=== PATIENT | female | born 1980 | race Caucasian/White ===

== ENCOUNTER 2016-07-09 19:31 | Emergency (ER) | payer MEDICARE, MEDICAID ==
[~2016-07-09] VITALS: Ht 167.6 cm; Wt 136.4 kg
[~2016-07-09 19:31] MED LIST: ABILIFY 10MG TA10 MG PO; AFRIN NASAL SPR15 ML NS; ALBUTEROL SULFAT3 M3 IH; AMITRIPTYLINE H25 M1 PO; ATIVAN 1MG T1 MG/TAB PO; ATIVAN PO; AURALGAN EAR DR15 ML OT; CEPHALEXIN500 M1 PO; CIPRO 500MG TA500 MG PO; CIPRO HC OTIC S10 ML OT; CIPRODEX OT; CLONAZEPAM PO; COZAAR 25MG25 MG/TAB; COZAAR 25MG25 MG/TAB PO; CYMBALTA PO; DEPAKOTE ER 25250 MG PO; DEPAKOTE ER 50500 MG PO; DEPAKOTE500 M1 PO; DEPAKOTE500 MG PO; DESYREL 50MG50 MG PO; DESYREL DIVIDO150 M1 PO; DICLOXACILLIN500 MG PO; DITROPAN 5MG TAB5 MG PO; FLUOXETINE10 M1 PO; GEODON 20 MG20 MG; GEODON 40MG40 MG PO; GEODON PO; GEODON80 MG PO; HYDROXYZINE HCL25 MG PO; KLONOPIN1 MG PO; LATUDA40 MG PO; LATUDA60 MG PO; LEVOTHYROXINE0.15 M1 PO; LEVOXYL0.025 MG PO; LORTAB 5/500 501 TAB PO; MELATONIN1 MG PO; MELATONIN5 M1 PO; MELATONIN5 M1 SL; METAMUCIL1 PDR PO; MOTRIN 800800 MG/TAB PO; MULTIPLE VITAMI1 CAP PO; MULTIPLE VITAMI1 TAB PO; NAPROSYN500 MG PO; NAPROXEN EC500 MG PO; NATURE'S BLEN1000 IU PO; NORCO 325 MG-51 TAB PO; NORCO 325 MG-7.1 TAB PO; OMEPRAZOLE40 MG PO; OXYBUTYNIN5 MG PO; PEPCID 20MG TAB20 MG PO; PERCOCET 325 MG1 TA2 PO; PERIACTIN 4MG TA4 MG PO; PHENERGAN 25 TA25 MG PO; PHENERGAN25 MG RC; PRIL40 PO; PRILOSEC 20MG20 MG PO; PRILOSEC20 MG PO; PRINIVIL10 MG PO; PRISTIQ100 MG PO; PROVENTIL0.09 MG/A1 IH; PROZAC 10MG10 MG PO; PROZAC 20MG20 MG PO; RESTORIL 77.5 MG/CAP PEG; RESTORIL 77.5 MG/CAP PO; SERAQUIL; SEROQUEL XR150 MG PO; SEROQUEL XR200 MG PO; SEROQUEL XR300 MG PO; SEROQUEL XR400 M1 PO; SEROQUEL XR400 MG PO; SYNTHROID 0.0.025 MG PO; SYNTHROID0.05 MG/TA PO; SYNTHROID0.125 MG/T PO; SYNTHROID0.2 MG/TAB PO; TEGRETOL PO; TEGRETOL-XR400 MG PO; TEGRETOL200 MG PO; TENORMIN 2525 MG/TAB PO; TOPAMAX 25MG25 M1 PO; TRAZADONE HYDR100 MG PO; TRAZODONE150 MG PO; VALTREX1 GM PO; VITAMIN D1000 IU PO; VITAMIN D31000 IU PO; WELLBUTRIN XL300 M1; WELLBUTRIN XL300 M1 PO; XANAX 0.5MG0.5 MG PO; XANAX 1MG1 MG PO; ZIPRASIDONE PO; ZITHROMAX 250M250 MG PO; ZITHROMAX Z PA250 MG PO; ZOFRAN 4MG T4 MG/TAB PO; ZYPREXA ZYDIS10 MG PO; ZYPREXA ZYDIS5 MG PO
[2016-07-09 19:55] VITALS: BP 157/85; TEMP 98.6
[2016-07-09] MEDS ORDERED: ATARAX50 MG PO (20:00)
[2016-07-09 21:16] LABS: AMPHETAMINE URINE NEGATIVE; BARBITURATES URINE NEGATIVE; BENZODIAZEPINES URINE NEGATIVE; BUPRENORPHINE URINE NEGATIVE; METHADONE URINE NEGATIVE; OPIATES URINE NEGATIVE; OXYCODONE URINE NEGATIVE; PHENCYCLIDINE URINE NEGATIVE; PROPOXYPHENE URINE NEGATIVE; THC CANNABINOIDS URINE NEGATIVE
[2016-07-09 21:18] LABS: BASO # 0.1 (0.0-0.2); BASO % 0.7 % (0.0-2.0); EOS # 0.2 (0.0-0.7); GRAN # 6.1 (1.4-6.5); GRAN % 57.5 % (42.2-75.2); HEMATOCRIT 44.8 % (37.0-47.0); HEMOGLOBIN 15.1 g/dl (12.5-16.0); LYMPH # 3.5 (1.2-3.4); LYMPH % 32.9 % (20.0-51.0); MEAN CELL VOLUME 89 fl (80.0-100.0); MEAN CORPUSCULAR HEMOGLOBIN 30 pg (27.0-31.0); MEAN CORPUSCULAR HGB CONC 34 g/dl (33.0-37.0); MEAN PLATELET VOLUME 10.6 fl (7.4-10.4); MONO # 0.7 (0.1-0.6); MONO % 6.2 % (1.7-9.3); PLATELET COUNT 284 K/mm3 (130-400); RED BLOOD COUNT 5.03 M/mm3 (4.10-5.30); REDCELL DISTRIBUTION WIDTH-CV 13.3 % (11.5-14.5); WHITE BLOOD COUNT 10.7 K/mm3 (4.8-10.8)
[2016-07-09 21:26] LABS: ADJUSTED CALCIUM 9.1 mg/dL (8.4-10.2); ALANINE AMINOTRANSFERASE 79 U/L (9-52); ALBUMIN 4.5 gm/dL (3.5-5.0); ALKALINE PHOSPHATASE 141 U/L (50-136); ANION GAP 14 mmol/L (7-16); BILIRUBIN,TOTAL 0.7 mg/dL (0.0-1.0); BLOOD UREA NITROGEN 5 mg/dL (7-17); CALCIUM 9.5 mg/dL (8.4-10.2); CARBON DIOXIDE 25 mmol/L (22-30); CHLORIDE 101 mmol/L (98-107); GLUCOSE 90 mg/dL (74-106); POTASSIUM 3.6 mmol/L (3.4-5.0); SODIUM 140 mmol/L (137-145); TOTAL PROTEIN 8.5 gm/dL (6.4-8.2)
[2016-07-09 21:27] LABS: ACETAMINOPHEN < 10 ug/mL (10-30); SALICYLATE < 1.0 mg/dL
[2016-07-09 23:09] VITALS: PULSE 94
== END 2016-07-09 23:09 | disposition home or self-care (01) ==
LOC: COL.ER 19:31
PROVIDERS: Emergency Medicine
DX: R45.851 Suicidal ideations (principal); F31.81 Bipolar II disorder; I10 Essential (primary) hypertension

== ENCOUNTER 2016-07-12 19:47 | Emergency (ER) | payer MEDICARE, MEDICAID ==
[~2016-07-12] VITALS: Ht 170.2 cm; Wt 136.4 kg
[~2016-07-12 19:47] MED LIST changes: +ATARAX50 MG PO
[2016-07-12 19:50] VITALS: BP 162/91; TEMP 98.7
[2016-07-12 20:55] LABS: BASO # 0.1 (0.0-0.2); BASO % 0.6 % (0.0-2.0); EOS # 0.2 (0.0-0.7); EOS % 2.4 % (0-4.0); GRAN # 4.9 (1.4-6.5); GRAN % 58.1 % (42.2-75.2); HEMATOCRIT 41.5 % (37.0-47.0); LYMPH # 2.8 (1.2-3.4); LYMPH % 32.5 % (20.0-51.0); MEAN CELL VOLUME 89 fl (80.0-100.0); MEAN CORPUSCULAR HEMOGLOBIN 30 pg (27.0-31.0); MEAN CORPUSCULAR HGB CONC 34 g/dl (33.0-37.0); MEAN PLATELET VOLUME 10.5 fl (7.4-10.4); MONO # 0.5 (0.1-0.6); MONO % 5.8 % (1.7-9.3); PLATELET COUNT 251 K/mm3 (130-400); RED BLOOD COUNT 4.65 M/mm3 (4.10-5.30); REDCELL DISTRIBUTION WIDTH-CV 13.1 % (11.5-14.5); WHITE BLOOD COUNT 8.5 K/mm3 (4.8-10.8)
[2016-07-12 21:10] LABS: AMPHETAMINE URINE NEGATIVE; BARBITURATES URINE NEGATIVE; BENZODIAZEPINES URINE NEGATIVE; BUPRENORPHINE URINE NEGATIVE; METHADONE URINE NEGATIVE; OPIATES URINE NEGATIVE; OXYCODONE URINE NEGATIVE; PHENCYCLIDINE URINE NEGATIVE; PROPOXYPHENE URINE NEGATIVE; THC CANNABINOIDS URINE NEGATIVE
[2016-07-12 21:19] LABS: ALANINE AMINOTRANSFERASE 72 U/L (9-52); ALBUMIN 4.1 gm/dL (3.5-5.0); ALKALINE PHOSPHATASE 137 U/L (50-136); ANION GAP 11 mmol/L (7-16); BILIRUBIN,TOTAL 0.5 mg/dL (0.0-1.0); BLOOD UREA NITROGEN 7 mg/dL (7-17); CALCIUM 9.1 mg/dL (8.4-10.2); CARBON DIOXIDE 26 mmol/L (22-30); CHLORIDE 102 mmol/L (98-107); CREATININE, serum 0.98 mg/dL (0.52-1.25); GLUCOSE 134 mg/dL (74-106); POTASSIUM 3.5 mmol/L (3.4-5.0); SODIUM 139 mmol/L (137-145); TOTAL PROTEIN 7.7 gm/dL (6.4-8.2)
[2016-07-12 21:29] LABS: ACETAMINOPHEN < 10 ug/mL (10-30); SALICYLATE < 1.0 mg/dL
[2016-07-12 23:35] VITALS: PULSE 91
== END 2016-07-12 23:35 | disposition home or self-care (01) ==
LOC: COL.ER 19:47
PROVIDERS: Physician Assistant
DX: F32.9 Major depressive disorder, single episode, unspecified (principal); R45.851 Suicidal ideations; F43.10 Post-traumatic stress disorder, unspecified; F60.3 Borderline personality disorder

== ENCOUNTER 2016-08-23 20:14 | Emergency (ER) | payer MEDICARE, MEDICAID ==
[~2016-08-23] VITALS: Ht 167.6 cm; Wt 140.9 kg
[2016-08-23 20:18] VITALS: BP 155/62; TEMP 100.5
[2016-08-23 21:13] LABS: HEMATOCRIT 42.9 % (37.0-47.0); HEMOGLOBIN 14.4 g/dl (12.5-16.0); MEAN CELL VOLUME 88 fl (80.0-100.0); MEAN CORPUSCULAR HEMOGLOBIN 30 pg (27.0-31.0); MEAN CORPUSCULAR HGB CONC 34 g/dl (33.0-37.0); MEAN PLATELET VOLUME 10.7 fl (7.4-10.4); PLATELET COUNT 252 K/mm3 (130-400); RED BLOOD COUNT 4.87 M/mm3 (4.10-5.30); REDCELL DISTRIBUTION WIDTH-CV 14.3 % (11.5-14.5); WHITE BLOOD COUNT 9.8 K/mm3 (4.8-10.8)
[2016-08-23 21:21] LABS: ADD PATHOLOGY DIFF REVIEW NO
[2016-08-23 21:29] LABS: ADJUSTED CALCIUM 9.3 mg/dL (8.4-10.2); ALANINE AMINOTRANSFERASE 53 U/L (9-52); ALBUMIN 4.3 gm/dL (3.5-5.0); ALKALINE PHOSPHATASE 110 U/L (50-136); ANION GAP 12 mmol/L (7-16); BILIRUBIN,TOTAL 0.9 mg/dL (0.0-1.0); BLOOD UREA NITROGEN 8 mg/dL (7-17); CALCIUM 9.5 mg/dL (8.4-10.2); CARBON DIOXIDE 27 mmol/L (22-30); CHLORIDE 102 mmol/L (98-107); GLUCOSE 128 mg/dL (74-106); POTASSIUM 3.3 mmol/L (3.4-5.0); SODIUM 141 mmol/L (137-145); TOTAL PROTEIN 8.3 gm/dL (6.4-8.2)
[2016-08-23 21:33] LABS: AMPHETAMINE URINE NEGATIVE; BARBITURATES URINE NEGATIVE; BENZODIAZEPINES URINE NEGATIVE; BUPRENORPHINE URINE NEGATIVE; METHADONE URINE NEGATIVE; OPIATES URINE NEGATIVE; OXYCODONE URINE NEGATIVE; PHENCYCLIDINE URINE NEGATIVE; PROPOXYPHENE URINE NEGATIVE; THC CANNABINOIDS URINE NEGATIVE
[2016-08-23 21:47] LABS: ACETAMINOPHEN < 10 ug/mL (10-30); SALICYLATE < 1.0 mg/dL
[2016-08-23 22:07] LABS: BAND 5 % (0-10); EOSINOPHIL 3 % (0-4); NEUTROPHILS 58 % (42.0-75.2); PLATELET ESTIMATE NORMAL (NORMAL); TOTAL CELLS COUNTED 100
[2016-08-24 05:01] VITALS: PULSE 112
== END 2016-08-24 05:04 ==
LOC: COL.ER 20:14
PROVIDERS: Physician Assistant
DX: F31.13 Bipolar disorder, current episode manic without psychotic features, severe (principal); R45.851 Suicidal ideations; M25.562 Pain in left knee; I10 Essential (primary) hypertension; E03.9 Hypothyroidism, unspecified; F17.210 Nicotine dependence, cigarettes, uncomplicated; Z91.5 Personal history of self-harm

== ENCOUNTER 2016-09-11 12:54 | Emergency (ER) | payer MEDICARE, MEDICAID ==
[~2016-09-11] VITALS: Ht 167.6 cm; Wt 140.0 kg
[2016-09-11 12:56] VITALS: BP 171/87; PULSE 103; TEMP 98.3
[2016-09-11] MEDS ORDERED: NORCO 325 MG-51 TAB PO (15:25)
== END 2016-09-11 15:34 | disposition home or self-care (01) ==
LOC: COL.ER 12:54
DX: S86.212A Strain of muscle(s) and tendon(s) of anterior muscle group at lower leg level, left leg, initial encounter (principal); X50.1XXA Overexertion from prolonged static or awkward postures, initial encounter; Y92.003 Bedroom of unspecified non-institutional (private) residence as the place of occurrence of the external cause; I10 Essential (primary) hypertension; F17.210 Nicotine dependence, cigarettes, uncomplicated
CPT/HCPCS: L1830

== ENCOUNTER 2016-12-31 12:06 | Emergency (ER) | payer MEDICARE, MEDICAID ==
[~2016-12-31] VITALS: Ht 170.2 cm; Wt 134.1 kg
[2016-12-31 12:09] VITALS: TEMP 98.5
[2016-12-31] MEDS ORDERED: SEROQUEL 1100 MG/TAB PO (12:15)
[2016-12-31] MEDS ORDERED: ALEVE 220MG220 MG PO (12:16)
[2016-12-31] MEDS ORDERED: DESYREL 100MG100 MG PO (12:16)
[2016-12-31] MEDS ORDERED: HALDOL 5MG T5 MG/TAB PO (12:16)
[2016-12-31] MEDS ORDERED: MULTI VITAMINS1 TAB PO (12:17)
[2016-12-31] MEDS ORDERED: LASIX 20MG TABL20 MG PO (12:49)
[2016-12-31 13:16] LABS: BASO # 0.1 (0.0-0.2); BASO % 0.9 % (0.0-2.0); EOS # 0.2 (0.0-0.7); EOS % 2.4 % (0-4.0); GRAN % 56.6 % (42.2-75.2); HEMATOCRIT 40.7 % (37.0-47.0); HEMOGLOBIN 13.4 g/dl (12.5-16.0); LYMPH # 2.3 (1.2-3.4); LYMPH % 32.7 % (20.0-51.0); MEAN CELL VOLUME 87 fl (80.0-100.0); MEAN CORPUSCULAR HEMOGLOBIN 29 pg (27.0-31.0); MEAN CORPUSCULAR HGB CONC 33 g/dl (33.0-37.0); MEAN PLATELET VOLUME 10.5 fl (7.4-10.4); MONO # 0.5 (0.1-0.6); PLATELET COUNT 232 K/mm3 (130-400); REDCELL DISTRIBUTION WIDTH-CV 14.4 % (11.5-14.5)
[2016-12-31 13:30] LABS: ADJUSTED CALCIUM 9.3 mg/dL (8.4-10.2); ALANINE AMINOTRANSFERASE 41 U/L (9-52); ALKALINE PHOSPHATASE 119 U/L (50-136); ANION GAP 11 mmol/L (7-16); BILIRUBIN,TOTAL 0.4 mg/dL (0.0-1.0); BLOOD UREA NITROGEN 8 mg/dL (7-17); CALCIUM 9.3 mg/dL (8.4-10.2); CARBON DIOXIDE 24 mmol/L (22-30); CHLORIDE 103 mmol/L (98-107); CREATININE, serum 0.97 mg/dL (0.52-1.25); GLUCOSE 90 mg/dL (74-106); POTASSIUM 3.7 mmol/L (3.4-5.0); SALICYLATE 2.1 mg/dL; SODIUM 139 mmol/L (137-145); TOTAL PROTEIN 7.3 gm/dL (6.4-8.2)
[2016-12-31 13:32] LABS: ACETAMINOPHEN < 10 ug/mL (10-30)
[2016-12-31 14:10] LABS: AMPHETAMINE URINE NEGATIVE; BARBITURATES URINE NEGATIVE; BENZODIAZEPINES URINE NEGATIVE; BUPRENORPHINE URINE NEGATIVE; METHADONE URINE NEGATIVE; OPIATES URINE NEGATIVE; OXYCODONE URINE NEGATIVE; PHENCYCLIDINE URINE NEGATIVE; PROPOXYPHENE URINE NEGATIVE; THC CANNABINOIDS URINE NEGATIVE
[2016-12-31 17:18] VITALS: BP 141/87; PULSE 77
== END 2016-12-31 21:24 ==
LOC: COL.ER 12:06
PROVIDERS: Emergency Medicine
DX: R45.851 Suicidal ideations (principal); F32.9 Major depressive disorder, single episode, unspecified; F43.10 Post-traumatic stress disorder, unspecified

== ENCOUNTER 2017-02-09 15:01 | Emergency (ER) | payer MEDICARE, MEDICAID ==
[~2017-02-09] VITALS: Ht 167.6 cm; Wt 135.9 kg
[~2017-02-09 15:01] MED LIST changes: +ALEVE 220MG220 MG PO; +DESYREL 100MG100 MG PO; +HALDOL 5MG T5 MG/TAB PO; +LASIX 20MG TABL20 MG PO; +MULTI VITAMINS1 TAB PO; +SEROQUEL 1100 MG/TAB PO
[2017-02-09 15:05] VITALS: TEMP 99.3
[2017-02-09 16:07] LABS: BASO # 0.1 (0.0-0.2); BASO % 0.7 % (0.0-2.0); EOS # 0.2 (0.0-0.7); EOS % 2.3 % (0-4.0); GRAN # 4.3 (1.4-6.5); GRAN % 58.2 % (42.2-75.2); HEMATOCRIT 41.1 % (37.0-47.0); HEMOGLOBIN 13.8 g/dl (12.5-16.0); LYMPH # 2.5 (1.2-3.4); LYMPH % 33.5 % (20.0-51.0); MEAN CELL VOLUME 87 fl (80.0-100.0); MEAN CORPUSCULAR HEMOGLOBIN 29 pg (27.0-31.0); MEAN CORPUSCULAR HGB CONC 34 g/dl (33.0-37.0); MEAN PLATELET VOLUME 10.5 fl (7.4-10.4); MONO # 0.4 (0.1-0.6); MONO % 4.8 % (1.7-9.3); PLATELET COUNT 230 K/mm3 (130-400); REDCELL DISTRIBUTION WIDTH-CV 14.2 % (11.5-14.5); WHITE BLOOD COUNT 7.3 K/mm3 (4.8-10.8)
[2017-02-09 16:17] LABS: ADJUSTED CALCIUM 9.1 mg/dL (8.4-10.2); ALANINE AMINOTRANSFERASE 45 U/L (9-52); ALBUMIN 4.1 gm/dL (3.5-5.0); ALKALINE PHOSPHATASE 120 U/L (50-136); ANION GAP 10 mmol/L (7-16); BILIRUBIN,TOTAL 0.4 mg/dL (0.0-1.0); BLOOD UREA NITROGEN 9 mg/dL (7-17); CALCIUM 9.2 mg/dL (8.4-10.2); CARBON DIOXIDE 26 mmol/L (22-30); CHLORIDE 103 mmol/L (98-107); CREATININE, serum 1.05 mg/dL (0.52-1.25); GLUCOSE 124 mg/dL (74-106); POTASSIUM 3.8 mmol/L (3.4-5.0); SODIUM 139 mmol/L (137-145); TOTAL PROTEIN 7.5 gm/dL (6.4-8.2)
[2017-02-09] MEDS ORDERED: PROZAC40 MG PO (16:18)
[2017-02-09 16:19] LABS: ACETAMINOPHEN < 10 ug/mL (10-30); SALICYLATE < 1.0 mg/dL
[2017-02-09 16:41] LABS: AMPHETAMINE URINE NEGATIVE; BARBITURATES URINE NEGATIVE; BENZODIAZEPINES URINE NEGATIVE; BUPRENORPHINE URINE NEGATIVE; METHADONE URINE NEGATIVE; OPIATES URINE NEGATIVE; OXYCODONE URINE NEGATIVE; PHENCYCLIDINE URINE NEGATIVE; PROPOXYPHENE URINE NEGATIVE; THC CANNABINOIDS URINE NEGATIVE
[2017-02-09 19:00] VITALS: BP 156/86
[2017-02-09 21:31] VITALS: PULSE 84
== END 2017-02-09 21:31 | disposition home or self-care (01) ==
LOC: COL.ER 15:01
PROVIDERS: Emergency Medicine
DX: R45.851 Suicidal ideations (principal); R44.3 Hallucinations, unspecified; F43.10 Post-traumatic stress disorder, unspecified; F31.9 Bipolar disorder, unspecified; F17.210 Nicotine dependence, cigarettes, uncomplicated; Z98.51 Tubal ligation status; Z90.49 Acquired absence of other specified parts of digestive tract

== ENCOUNTER 2017-02-16 18:31 | Emergency (ER) | payer MEDICARE, MEDICAID ==
[~2017-02-16] VITALS: Ht 167.6 cm; Wt 136.4 kg
[~2017-02-16 18:31] MED LIST changes: +PROZAC40 MG PO
[2017-02-16 18:34] VITALS: TEMP 100
[2017-02-16 19:25] LABS: ADJUSTED CALCIUM 9.1 mg/dL (8.4-10.2); ALANINE AMINOTRANSFERASE 44 U/L (9-52); ALBUMIN 4.3 gm/dL (3.5-5.0); ALKALINE PHOSPHATASE 96 U/L (50-136); ANION GAP 13 mmol/L (7-16); BILIRUBIN,TOTAL 0.6 mg/dL (0.0-1.0); BLOOD UREA NITROGEN 8 mg/dL (7-17); CALCIUM 9.3 mg/dL (8.4-10.2); CARBON DIOXIDE 21 mmol/L (22-30); CHLORIDE 105 mmol/L (98-107); CREATININE, serum 0.92 mg/dL (0.52-1.25); GLUCOSE 88 mg/dL (74-106); POTASSIUM 3.7 mmol/L (3.4-5.0); SODIUM 139 mmol/L (137-145); TOTAL PROTEIN 7.9 gm/dL (6.4-8.2)
[2017-02-16 19:27] LABS: ACETAMINOPHEN < 10 ug/mL (10-30); BASO # 0.1 (0.0-0.2); BASO % 0.7 % (0.0-2.0); EOS # 0.2 (0.0-0.7); EOS % 1.6 % (0-4.0); GRAN # 6.9 (1.4-6.5); GRAN % 62.1 % (42.2-75.2); HEMATOCRIT 43.4 % (37.0-47.0); HEMOGLOBIN 14.6 g/dl (12.5-16.0); LYMPH # 3.3 (1.2-3.4); LYMPH % 29.7 % (20.0-51.0); MEAN CELL VOLUME 86 fl (80.0-100.0); MEAN CORPUSCULAR HEMOGLOBIN 29 pg (27.0-31.0); MEAN CORPUSCULAR HGB CONC 34 g/dl (33.0-37.0); MEAN PLATELET VOLUME 10.4 fl (7.4-10.4); MONO # 0.6 (0.1-0.6); MONO % 5.2 % (1.7-9.3); PLATELET COUNT 251 K/mm3 (130-400); RED BLOOD COUNT 5.05 M/mm3 (4.10-5.30); REDCELL DISTRIBUTION WIDTH-CV 14.2 % (11.5-14.5); SALICYLATE < 1.0 mg/dL; WHITE BLOOD COUNT 11.1 K/mm3 (4.8-10.8)
[2017-02-16 19:36] LABS: AMPHETAMINE URINE NEGATIVE; BARBITURATES URINE NEGATIVE; BENZODIAZEPINES URINE NEGATIVE; BUPRENORPHINE URINE NEGATIVE; METHADONE URINE NEGATIVE; OPIATES URINE NEGATIVE; OXYCODONE URINE NEGATIVE; PHENCYCLIDINE URINE NEGATIVE; PROPOXYPHENE URINE NEGATIVE; THC CANNABINOIDS URINE NEGATIVE
[2017-02-17 00:10] VITALS: BP 130/88; PULSE 75
== END 2017-02-17 00:29 ==
LOC: COL.ER 18:31
PROVIDERS: Emergency Medicine
DX: R45.851 Suicidal ideations (principal); F31.9 Bipolar disorder, unspecified; F43.10 Post-traumatic stress disorder, unspecified; F44.89 Other dissociative and conversion disorders; F41.9 Anxiety disorder, unspecified; E03.9 Hypothyroidism, unspecified

== ENCOUNTER 2017-03-13 13:04 | Outpatient (RCR) | payer MEDICARE | END 2017-03-13 15:08 | LOC: WSPT 13:04 | DX: Z01.818 Encounter for other preprocedural examination (principal) | CPT/HCPCS: G8978-GP; G8979-GP ==

== ENCOUNTER 2017-03-23 12:48 | Emergency (ER) | payer MEDICARE, MEDICAID ==
[~2017-03-23] VITALS: Ht 167.6 cm; Wt 136.4 kg
[2017-03-23 12:58] VITALS: TEMP 99.3
[2017-03-23 14:02] LABS: BASO # 0.1 (0.0-0.2); BASO % 0.5 % (0.0-2.0); EOS # 0.2 (0.0-0.7); EOS % 1.8 % (0-4.0); GRAN % 61.9 % (42.2-75.2); HEMATOCRIT 40.3 % (37.0-47.0); HEMOGLOBIN 13.4 g/dl (12.5-16.0); LYMPH # 2.6 (1.2-3.4); LYMPH % 26.5 % (20.0-51.0); MEAN CELL VOLUME 89 fl (80.0-100.0); MEAN CORPUSCULAR HEMOGLOBIN 30 pg (27.0-31.0); MEAN CORPUSCULAR HGB CONC 33 g/dl (33.0-37.0); MONO # 0.8 (0.1-0.6); MONO % 8.7 % (1.7-9.3); PLATELET COUNT 234 K/mm3 (130-400); RED BLOOD COUNT 4.54 M/mm3 (4.10-5.30); WHITE BLOOD COUNT 9.6 K/mm3 (4.8-10.8)
[2017-03-23 14:08] LABS: AMPHETAMINE URINE NEGATIVE; BARBITURATES URINE NEGATIVE; BENZODIAZEPINES URINE POSITIVE; BUPRENORPHINE URINE NEGATIVE; METHADONE URINE NEGATIVE; OPIATES URINE POSITIVE; OXYCODONE URINE NEGATIVE; PHENCYCLIDINE URINE NEGATIVE; PROPOXYPHENE URINE NEGATIVE; THC CANNABINOIDS URINE NEGATIVE
[2017-03-23 14:18] LABS: ADJUSTED CALCIUM 9.2 mg/dL (8.4-10.2); ALANINE AMINOTRANSFERASE 38 U/L (9-52); ALBUMIN 3.9 gm/dL (3.5-5.0); ALKALINE PHOSPHATASE 86 U/L (50-136); ANION GAP 11 mmol/L (7-16); BILIRUBIN,TOTAL 0.6 mg/dL (0.0-1.0); BLOOD UREA NITROGEN 7 mg/dL (7-17); CALCIUM 9.1 mg/dL (8.4-10.2); CARBON DIOXIDE 22 mmol/L (22-30); CHLORIDE 107 mmol/L (98-107); CREATININE, serum 0.83 mg/dL (0.52-1.25); GLUCOSE 105 mg/dL (74-106); POTASSIUM 3.6 mmol/L (3.4-5.0); SODIUM 139 mmol/L (137-145); TOTAL PROTEIN 7.4 gm/dL (6.4-8.2)
[2017-03-23 14:21] LABS: ACETAMINOPHEN < 10 ug/mL (10-30); SALICYLATE < 1.0 mg/dL
[2017-03-24 09:55] VITALS: BP 141/90; PULSE 81
== END 2017-03-24 10:42 ==
LOC: COL.ER 12:48
PROVIDERS: Nurse Practitioner Primary Care
DX: R45.851 Suicidal ideations (principal); I10 Essential (primary) hypertension; F31.9 Bipolar disorder, unspecified; E03.9 Hypothyroidism, unspecified; F12.10 Cannabis abuse, uncomplicated; F17.210 Nicotine dependence, cigarettes, uncomplicated

== ENCOUNTER 2017-03-24 11:15 | Outpatient (RCR) | payer MEDICARE | END 2017-04-10 12:48 | LOC: WSPT 11:15 | DX: Z47.1 Aftercare following joint replacement surgery (principal); Z96.652 Presence of left artificial knee joint; Z98.890 Other specified postprocedural states | CPT/HCPCS: G8978-GP; G8979-GP ==

== ENCOUNTER → 2017-05-16 | Emergency (ER) | payer MEDICARE, MEDICAID ==
[~2017-05-16] VITALS: Ht 167.6 cm; Wt 136.4 kg
[~2017-05-16] MED LIST changes: +MINIPRESS2 MG
[2017-05-16 20:19] VITALS: TEMP 99.5
[2017-05-16 21:02] LABS: BASO # 0.1 (0.0-0.2); BASO % 0.8 % (0.0-2.0); EOS # 0.2 (0.0-0.7); EOS % 1.4 % (0-4.0); GRAN # 6.2 (1.4-6.5); GRAN % 59.5 % (42.2-75.2); HEMOGLOBIN 14.5 g/dl (12.5-16.0); LYMPH # 3.2 (1.2-3.4); MEAN CELL VOLUME 88 fl (80.0-100.0); MEAN CORPUSCULAR HEMOGLOBIN 30 pg (27.0-31.0); MEAN CORPUSCULAR HGB CONC 34 g/dl (33.0-37.0); MEAN PLATELET VOLUME 10.3 fl (7.4-10.4); MONO # 0.7 (0.1-0.6); MONO % 6.7 % (1.7-9.3); PLATELET COUNT 265 K/mm3 (130-400); RED BLOOD COUNT 4.88 M/mm3 (4.10-5.30); WHITE BLOOD COUNT 10.4 K/mm3 (4.8-10.8)
[2017-05-16 21:19] LABS: ADJUSTED CALCIUM 8.9 mg/dL (8.4-10.2); ALANINE AMINOTRANSFERASE 55 U/L (9-52); ALBUMIN 4.5 gm/dL (3.5-5.0); ALKALINE PHOSPHATASE 99 U/L (50-136); ANION GAP 12 mmol/L (7-16); BILIRUBIN,TOTAL 0.5 mg/dL (0.0-1.0); BLOOD UREA NITROGEN 7 mg/dL (7-17); CALCIUM 9.3 mg/dL (8.4-10.2); CARBON DIOXIDE 25 mmol/L (22-30); CHLORIDE 102 mmol/L (98-107); CREATININE, serum 1.04 mg/dL (0.52-1.25); GLUCOSE 124 mg/dL (74-106); POTASSIUM 3.2 mmol/L (3.4-5.0); SODIUM 138 mmol/L (137-145)
[2017-05-16 21:20] LABS: ACETAMINOPHEN < 10 ug/mL (10-30); ALCOHOL(ethanol),MEDICAL < 10 mg/dL; SALICYLATE < 1.0 mg/dL
[2017-05-16 21:30] LABS: COLLECTION METHOD CLEAN CATCH
[2017-05-16 21:39] LABS: MUCOUS Present /lpf; PH 5 (5-8); URINE APPEARANCE Hazy; URINE BACTERIA None Seen /hpf; URINE BILIRUBIN Negative (NEGATIVE); URINE BLOOD 1+ (NEGATIVE); URINE COLOR Yellow; URINE GLUCOSE Negative (NEGATIVE); URINE KETONE 1+ (NEGATIVE); URINE LEUKOCYTE ESTERASE Trace (NEGATIVE); URINE PROTEIN(semi-quant) 1+ (NEGATIVE); URINE UROBILINOGEN Negative (NEGATIVE)
[2017-05-16 21:44] LABS: AMPHETAMINE URINE NEGATIVE; BARBITURATES URINE NEGATIVE; BENZODIAZEPINES URINE POSITIVE; BUPRENORPHINE URINE NEGATIVE; METHADONE URINE NEGATIVE; OPIATES URINE NEGATIVE; OXYCODONE URINE NEGATIVE; PHENCYCLIDINE URINE NEGATIVE; PROPOXYPHENE URINE NEGATIVE; THC CANNABINOIDS URINE NEGATIVE; TRICYCLIC ANTIDEPRESS URINE POSITIVE
[2017-05-16 22:32] LABS: TSH w REFLEX 0.935 uIU/mL (0.465-4.680)
[2017-05-17 09:55] VITALS: BP 172/90; PULSE 95
== END ==
LOC: COL.ER 20:18
PROVIDERS: Emergency Medicine
DX: R45.851 Suicidal ideations (principal); E87.6 Hypokalemia; F44.81 Dissociative identity disorder; F31.9 Bipolar disorder, unspecified; J45.909 Unspecified asthma, uncomplicated; E03.9 Hypothyroidism, unspecified; F12.90 Cannabis use, unspecified, uncomplicated; F17.210 Nicotine dependence, cigarettes, uncomplicated

== ENCOUNTER 2017-06-12 15:48 | Emergency (ER) | payer MEDICARE, MEDICAID ==
[~2017-06-12] VITALS: Ht 167.6 cm; Wt 136.4 kg
[2017-06-12 15:57] VITALS: BP 148/72; TEMP 99.2
[2017-06-12 16:27] LABS: BASO # 0.1 (0.0-0.2); BASO % 0.9 % (0.0-2.0); EOS # 0.1 (0.0-0.7); EOS % 0.9 % (0-4.0); GRAN # 7.9 (1.4-6.5); GRAN % 69.6 % (42.2-75.2); HEMATOCRIT 46.4 % (37.0-47.0); HEMOGLOBIN 15.3 g/dl (12.5-16.0); LYMPH # 2.7 (1.2-3.4); LYMPH % 23.7 % (20.0-51.0); MEAN CELL VOLUME 88 fl (80.0-100.0); MEAN CORPUSCULAR HEMOGLOBIN 29 pg (27.0-31.0); MEAN CORPUSCULAR HGB CONC 33 g/dl (33.0-37.0); MONO # 0.5 (0.1-0.6); MONO % 4.3 % (1.7-9.3); PLATELET COUNT 336 K/mm3 (130-400); WHITE BLOOD COUNT 11.3 K/mm3 (4.8-10.8)
[2017-06-12 16:38] LABS: ADJUSTED CALCIUM 9.4 mg/dL (8.4-10.2); ALBUMIN 4.9 gm/dL (3.5-5.0); BILIRUBIN,TOTAL 0.3 mg/dL (0.0-1.0); CALCIUM 10.1 mg/dL (8.4-10.2); CREATININE, serum 1.01 mg/dL (0.52-1.25); POTASSIUM 3.6 mmol/L (3.4-5.0); TOTAL PROTEIN 8.6 gm/dL (6.4-8.2)
[2017-06-12 16:40] LABS: AMPHETAMINE URINE NEGATIVE; BARBITURATES URINE NEGATIVE; BENZODIAZEPINES URINE POSITIVE; BUPRENORPHINE URINE NEGATIVE; METHADONE URINE NEGATIVE; OPIATES URINE NEGATIVE; OXYCODONE URINE NEGATIVE; PHENCYCLIDINE URINE NEGATIVE; PROPOXYPHENE URINE NEGATIVE; THC CANNABINOIDS URINE NEGATIVE; TRICYCLIC ANTIDEPRESS URINE POSITIVE
[2017-06-12] MEDS ORDERED: SEROQUEL XR400 M1 PO (16:52)
[2017-06-12 17:08] LABS: THYROID STIMULATING HORMONE 0.103 uIU/mL (0.465-4.680)
[2017-06-12 18:23] VITALS: PULSE 110
== END 2017-06-12 18:23 | disposition home or self-care (01) ==
LOC: COL.ER 15:48
PROVIDERS: Physician Assistant Medical
DX: E05.90 Thyrotoxicosis, unspecified without thyrotoxic crisis or storm (principal); R25.1 Tremor, unspecified; F17.210 Nicotine dependence, cigarettes, uncomplicated

== ENCOUNTER 2017-06-20 14:11 | Emergency (ER) | payer MEDICARE ==
[~2017-06-20] VITALS: Ht 167.6 cm; Wt 136.4 kg
[2017-06-20 15:22] LABS: BASO # 0.1 (0.0-0.2); BASO % 0.8 % (0.0-2.0); EOS # 0.2 (0.0-0.7); EOS % 1.9 % (0-4.0); GRAN # 5.7 (1.4-6.5); GRAN % 60.7 % (42.2-75.2); HEMATOCRIT 43.6 % (37.0-47.0); HEMOGLOBIN 14.1 g/dl (12.5-16.0); LYMPH # 2.8 (1.2-3.4); LYMPH % 30.4 % (20.0-51.0); MEAN CELL VOLUME 88 fl (80.0-100.0); MEAN CORPUSCULAR HEMOGLOBIN 29 pg (27.0-31.0); MEAN CORPUSCULAR HGB CONC 32 g/dl (33.0-37.0); MEAN PLATELET VOLUME 10.3 fl (7.4-10.4); MONO # 0.5 (0.1-0.6); MONO % 5.4 % (1.7-9.3); PLATELET COUNT 273 K/mm3 (130-400); RED BLOOD COUNT 4.94 M/mm3 (4.10-5.30); REDCELL DISTRIBUTION WIDTH-CV 14.2 % (11.5-14.5)
[2017-06-20 15:27] LABS: ALANINE AMINOTRANSFERASE 55 U/L (9-52); ALBUMIN 4.5 gm/dL (3.5-5.0); ALKALINE PHOSPHATASE 138 U/L (50-136); ANION GAP 10 mmol/L (7-16); AST,SGOT 28 U/L (15-37); BILIRUBIN,TOTAL 0.3 mg/dL (0.0-1.0); BLOOD UREA NITROGEN 11 mg/dL (7-17); CALCIUM 9.8 mg/dL (8.4-10.2); CARBON DIOXIDE 26 mmol/L (22-30); CHLORIDE 104 mmol/L (98-107); CREATININE, serum 1.01 mg/dL (0.52-1.25); GLUCOSE 109 mg/dL (74-106); SODIUM 140 mmol/L (137-145)
[2017-06-20 15:31] LABS: ACETAMINOPHEN < 10 ug/mL (10-30); ALCOHOL(ethanol),MEDICAL < 10 mg/dL; SALICYLATE < 1.0 mg/dL
[2017-06-20 16:10] LABS: TRICYCLIC ANTIDEPRESS URINE POSITIVE
[2017-06-20 17:05] VITALS: BP 152/99; TEMP 98.3
[2017-06-20 22:11] VITALS: PULSE 92
== END 2017-06-20 22:11 ==
LOC: COL.ER 14:11
PROVIDERS: Emergency Medicine
DX: F31.9 Bipolar disorder, unspecified (principal); R45.851 Suicidal ideations; I10 Essential (primary) hypertension; F43.10 Post-traumatic stress disorder, unspecified; K21.9 Gastro-esophageal reflux disease without esophagitis; Z90.49 Acquired absence of other specified parts of digestive tract; Z98.51 Tubal ligation status

== ENCOUNTER 2017-07-07 14:28 | Emergency (ER) | payer MEDICARE ==
[~2017-07-07] VITALS: Ht 170.2 cm; Wt 143.2 kg
[2017-07-07 15:46] LABS: TRICYCLIC ANTIDEPRESS URINE NEGATIVE
[2017-07-07 15:55] LABS: BASO # 0.1 (0.0-0.2); EOS # 0.2 (0.0-0.7); EOS % 2.1 % (0-4.0); GRAN # 7.1 (1.4-6.5); GRAN % 63.1 % (42.2-75.2); HEMATOCRIT 43.2 % (37.0-47.0); HEMOGLOBIN 14.4 g/dl (12.5-16.0); LYMPH # 3.1 (1.2-3.4); LYMPH % 27.3 % (20.0-51.0); MEAN CELL VOLUME 87 fl (80.0-100.0); MEAN CORPUSCULAR HEMOGLOBIN 29 pg (27.0-31.0); MEAN CORPUSCULAR HGB CONC 33 g/dl (33.0-37.0); MEAN PLATELET VOLUME 9.9 fl (7.4-10.4); MONO # 0.6 (0.1-0.6); MONO % 5.7 % (1.7-9.3); PLATELET COUNT 261 K/mm3 (130-400); RED BLOOD COUNT 4.96 M/mm3 (4.10-5.30); REDCELL DISTRIBUTION WIDTH-CV 14.5 % (11.5-14.5)
[2017-07-07 16:24] LABS: ACETAMINOPHEN < 10 ug/mL (10-30); ALANINE AMINOTRANSFERASE 52 U/L (9-52); ALBUMIN 4.6 gm/dL (3.5-5.0); ALCOHOL(ethanol),MEDICAL < 10 mg/dL; ALKALINE PHOSPHATASE 118 U/L (50-136); ANION GAP 12 mmol/L (7-16); AST,SGOT 79 U/L (15-37); BILIRUBIN,TOTAL 0.6 mg/dL (0.0-1.0); BLOOD UREA NITROGEN 9 mg/dL (7-17); CALCIUM 9.6 mg/dL (8.4-10.2); CARBON DIOXIDE 21 mmol/L (22-30); CHLORIDE 104 mmol/L (98-107); CREATININE, serum 0.86 mg/dL (0.52-1.25); GLUCOSE 98 mg/dL (74-106); POTASSIUM 3.8 mmol/L (3.4-5.0); SALICYLATE < 1.0 mg/dL; SODIUM 137 mmol/L (137-145); TOTAL PROTEIN 8.4 gm/dL (6.4-8.2)
[2017-07-07 19:29] VITALS: TEMP 97.9
[2017-07-07 22:25] VITALS: BP 150/80; PULSE 95
== END 2017-07-07 22:30 ==
LOC: COL.ER 14:28
PROVIDERS: Emergency Medicine
DX: F32.9 Major depressive disorder, single episode, unspecified (principal); J06.9 Acute upper respiratory infection, unspecified; R45.851 Suicidal ideations; F41.9 Anxiety disorder, unspecified; F17.210 Nicotine dependence, cigarettes, uncomplicated

== ENCOUNTER 2017-07-24 09:45 | Outpatient (RCR) | payer MEDICARE, MEDICAID | END 2017-08-06 09:51 | disposition home or self-care (01) | LOC: WSPT 09:45 | DX: R27.0 Ataxia, unspecified (principal) | CPT/HCPCS: G8978-GP; G8979-GP ==

== ENCOUNTER 2017-08-27 20:51 | Emergency (ER) | payer MEDICARE ==
[~2017-08-27] VITALS: Ht 167.6 cm; Wt 136.4 kg
[2017-08-27 21:00] VITALS: TEMP 98.5
[2017-08-27 21:35] LABS: BASO # 0.1 (0.0-0.2); BASO % 0.7 % (0.0-2.0); EOS # 0.3 (0.0-0.7); GRAN % 53.4 % (42.2-75.2); HEMATOCRIT 42.3 % (37.0-47.0); HEMOGLOBIN 14.1 g/dl (12.5-16.0); LYMPH # 3.4 (1.2-3.4); LYMPH % 35.7 % (20.0-51.0); MEAN CELL VOLUME 87 fl (80.0-100.0); MEAN CORPUSCULAR HEMOGLOBIN 29 pg (27.0-31.0); MEAN CORPUSCULAR HGB CONC 33 g/dl (33.0-37.0); MEAN PLATELET VOLUME 10.1 fl (7.4-10.4); MONO # 0.6 (0.1-0.6); MONO % 6.8 % (1.7-9.3); PLATELET COUNT 271 K/mm3 (130-400); RED BLOOD COUNT 4.86 M/mm3 (4.10-5.30); REDCELL DISTRIBUTION WIDTH-CV 14.7 % (11.5-14.5)
[2017-08-27 21:45] LABS: ALANINE AMINOTRANSFERASE 56 U/L (9-52); ALBUMIN 4.3 gm/dL (3.5-5.0); ALKALINE PHOSPHATASE 131 U/L (50-136); ANION GAP 14 mmol/L (7-16); AST,SGOT 32 U/L (15-37); BILIRUBIN,TOTAL 0.2 mg/dL (0.0-1.0); BLOOD UREA NITROGEN 9 mg/dL (7-17); CALCIUM 8.9 mg/dL (8.4-10.2); CARBON DIOXIDE 24 mmol/L (22-30); CHLORIDE 104 mmol/L (98-107); CREATININE, serum 0.83 mg/dL (0.52-1.25); GLUCOSE 131 mg/dL (74-106); POTASSIUM 3.4 mmol/L (3.4-5.0); SODIUM 142 mmol/L (137-145); TOTAL PROTEIN 7.7 gm/dL (6.4-8.2)
[2017-08-27 21:47] LABS: ACETAMINOPHEN < 10 ug/mL (10-30); ALCOHOL(ethanol),MEDICAL < 10 mg/dL; SALICYLATE < 1.0 mg/dL
[2017-08-27] MEDS ORDERED: K-TAB10 (21:54)
[2017-08-27] MEDS ORDERED: REXULTI1 MG PO (21:54)
[2017-08-27] MEDS ORDERED: ZANTAC 7575 MG (21:54)
[2017-08-27] MEDS ORDERED: KLONOPIN 1MG1 MG PO (21:55)
[2017-08-27 22:09] LABS: COLLECTION METHOD CLEAN CATCH
[2017-08-27 22:20] LABS: MUCOUS Present /lpf; PH 5 (5-8); SQUAMOUS EPITHELIAL 0-2 /hpf; URINE APPEARANCE Hazy; URINE BACTERIA Rare /hpf; URINE BILIRUBIN Negative (NEGATIVE); URINE BLOOD 2+ (NEGATIVE); URINE COLOR Yellow; URINE GLUCOSE Negative (NEGATIVE); URINE KETONE Negative (NEGATIVE); URINE LEUKOCYTE ESTERASE Negative (NEGATIVE); URINE NITRATE Negative (NEGATIVE); URINE PROTEIN(semi-quant) 1+ (NEGATIVE); URINE UROBILINOGEN Negative (NEGATIVE)
[2017-08-27 22:32] LABS: TRICYCLIC ANTIDEPRESS URINE POSITIVE
[2017-08-28 03:13] VITALS: BP 144/101; PULSE 85
== END 2017-08-28 03:30 ==
LOC: COL.ER 20:51
PROVIDERS: Emergency Medicine
DX: F32.9 Major depressive disorder, single episode, unspecified (principal); R45.851 Suicidal ideations; I10 Essential (primary) hypertension; K21.9 Gastro-esophageal reflux disease without esophagitis; F43.10 Post-traumatic stress disorder, unspecified; F44.81 Dissociative identity disorder; F60.3 Borderline personality disorder; F17.210 Nicotine dependence, cigarettes, uncomplicated

== ENCOUNTER 2017-11-09 22:47 | Emergency (ER) | payer MEDICARE ==
[~2017-11-09 22:47] MED LIST changes: +K-TAB10; +KLONOPIN 1MG1 MG PO; +REXULTI1 MG PO; +ZANTAC 7575 MG
[2017-11-09 22:48] VITALS: BP 134/86; PULSE 100; TEMP 98.6
[2017-11-09 23:19] LABS: BASO # 0.1 (0.0-0.2); BASO % 0.8 % (0.0-2.0); EOS # 0.2 (0.0-0.7); EOS % 1.6 % (0-4.0); GRAN # 6.8 (1.4-6.5); GRAN % 58.7 % (42.2-75.2); HEMATOCRIT 40.6 % (37.0-47.0); HEMOGLOBIN 13.6 g/dl (12.5-16.0); LYMPH # 3.7 (1.2-3.4); LYMPH % 32.1 % (20.0-51.0); MEAN CELL VOLUME 86 fl (80.0-100.0); MEAN CORPUSCULAR HEMOGLOBIN 29 pg (27.0-31.0); MEAN CORPUSCULAR HGB CONC 34 g/dl (33.0-37.0); MEAN PLATELET VOLUME 10.3 fl (7.4-10.4); MONO # 0.7 (0.1-0.6); MONO % 6.2 % (1.7-9.3); PLATELET COUNT 301 K/mm3 (130-400); RED BLOOD COUNT 4.72 M/mm3 (4.10-5.30); REDCELL DISTRIBUTION WIDTH-CV 15.2 % (11.5-14.5)
[2017-11-09 23:31] LABS: ALANINE AMINOTRANSFERASE 46 U/L (9-52); ALKALINE PHOSPHATASE 137 U/L (50-136); ANION GAP 13 mmol/L (7-16); AST,SGOT 29 U/L (15-37); BILIRUBIN,TOTAL 0.5 mg/dL (0.0-1.0); BLOOD UREA NITROGEN 11 mg/dL (7-17); CALCIUM 9.7 mg/dL (8.4-10.2); CARBON DIOXIDE 25 mmol/L (22-30); CHLORIDE 104 mmol/L (98-107); CREATININE, serum 0.97 mg/dL (0.52-1.25); GLUCOSE 104 mg/dL (74-106); POTASSIUM 3.7 mmol/L (3.4-5.0); SODIUM 142 mmol/L (137-145); TOTAL PROTEIN 8.6 gm/dL (6.4-8.2)
[2017-11-09 23:34] LABS: ACETAMINOPHEN < 10 ug/mL (10-30); ALCOHOL(ethanol),MEDICAL < 10 mg/dL; SALICYLATE < 1.0 mg/dL
[2017-11-10 00:10] LABS: COLLECTION METHOD CLEAN CATCH
[2017-11-10 01:29] LABS: TRICYCLIC ANTIDEPRESS URINE POSITIVE
[2017-11-10 02:14] LABS: MUCOUS Present /lpf; PH 5 (5-8); URINE APPEARANCE Cloudy; URINE BACTERIA Occasional /hpf; URINE BILIRUBIN Negative (NEGATIVE); URINE BLOOD 3+ (NEGATIVE); URINE COLOR Amber; URINE GLUCOSE Negative (NEGATIVE); URINE KETONE Trace (NEGATIVE); URINE LEUKOCYTE ESTERASE Negative (NEGATIVE); URINE NITRATE Negative (NEGATIVE); URINE PROTEIN(semi-quant) 2+ (NEGATIVE); URINE RBC >50 /hpf
== END 2017-11-10 05:49 | disposition home or self-care (01) ==
LOC: COL.ER 22:47
PROVIDERS: Emergency Medicine
DX: S40.812A Abrasion of left upper arm, initial encounter (principal); S70.312A Abrasion, left thigh, initial encounter; F31.9 Bipolar disorder, unspecified; F60.3 Borderline personality disorder; F41.9 Anxiety disorder, unspecified; X78.8XXA Intentional self-harm by other sharp object, initial encounter

== ENCOUNTER 2017-11-11 11:55 | Inpatient (IN) | payer MEDICARE ==
[2017-11-11] VITALS (582 sets, daily range): BP systolic 122–140; BP diastolic 86–91; PULSE 103–121; TEMP 98–100.3; O2SAT 93–99
[~2017-11-11] VITALS: Ht 167.6 cm; Wt 149.5 kg
[~2017-11-11 11:55] MED LIST changes: -COZAAR 25MG25 MG/TAB PO; +COZAAR100 MG PO; -K-TAB10; +K-TAB20 PO; -LEVOXYL0.025 MG PO; +LEVOXYL0.05 MG PO; +ZANTAC 150MG T150 MG PO; -ZANTAC 7575 MG
[2017-11-11 12:26] LABS: BASO # 0.1 (0.0-0.2); BASO % 0.6 % (0.0-2.0); EOS # 0.1 (0.0-0.7); EOS % 0.5 % (0-4.0); GRAN # 12.1 (1.4-6.5); GRAN % 79.9 % (42.2-75.2); HEMATOCRIT 45.3 % (37.0-47.0); HEMOGLOBIN 14.8 g/dl (12.5-16.0); LYMPH # 1.7 (1.2-3.4); LYMPH % 11.2 % (20.0-51.0); MEAN CELL VOLUME 86 fl (80.0-100.0); MEAN CORPUSCULAR HEMOGLOBIN 28 pg (27.0-31.0); MEAN CORPUSCULAR HGB CONC 33 g/dl (33.0-37.0); MEAN PLATELET VOLUME 10.8 fl (7.4-10.4); MONO # 1.1 (0.1-0.6); MONO % 7.3 % (1.7-9.3); PLATELET COUNT 283 K/mm3 (130-400); RED BLOOD COUNT 5.26 M/mm3 (4.10-5.30); REDCELL DISTRIBUTION WIDTH-CV 15.5 % (11.5-14.5)
[2017-11-11 12:36] LABS: ACETAMINOPHEN < 10 ug/mL (10-30); ALCOHOL(ethanol),MEDICAL < 10 mg/dL; SALICYLATE < 1.0 mg/dL
[2017-11-11 12:49] LABS: TRICYCLIC ANTIDEPRESS URINE POSITIVE
[2017-11-11 12:53] LABS: ARTERIAL BLD GAS O2 SATURATION 96.3 % (92-100); ARTERIAL BLD GAS TCO2 CT 22.4; ARTERIAL BLOOD GAS BASE EXCESS -3.5 (-2-2); ARTERIAL BLOOD GAS HCO3 21.3 meq/L (22-26); ARTERIAL BLOOD GAS PCO2 37.9 mmHg (35-45); ARTERIAL BLOOD GAS PO2 92.3 mmHg (80-100); ARTERIAL BLOOD GAS pH 7.37 (7.35-7.45)
[2017-11-11 13:20] LABS: ALANINE AMINOTRANSFERASE 63 U/L (9-52); ALBUMIN 3.7 gm/dL (3.5-5.0); ALKALINE PHOSPHATASE 95 U/L (50-136); ANION GAP 15 mmol/L (7-16); AST,SGOT 153 U/L (15-37); BILIRUBIN,TOTAL 0.9 mg/dL (0.0-1.0); BLOOD UREA NITROGEN 14 mg/dL (7-17); CALCIUM 8.6 mg/dL (8.4-10.2); CARBON DIOXIDE 23 mmol/L (22-30); CHLORIDE 107 mmol/L (98-107); CREATININE, serum 1.41 mg/dL (0.52-1.25); GLUCOSE 123 mg/dL (74-106); POTASSIUM 3.5 mmol/L (3.4-5.0); SODIUM 145 mmol/L (137-145); TOTAL PROTEIN 7.6 gm/dL (6.4-8.2)
[2017-11-11 13:33] LABS: TROPONIN-I < 0.012 ng/mL (0.000-0.034)
[2017-11-11 16:22] LABS: ARTERIAL BLD GAS O2 SATURATION 95.4 % (92-100); ARTERIAL BLD GAS TCO2 CT 21.2; ARTERIAL BLOOD GAS BASE EXCESS -4.4 (-2-2); ARTERIAL BLOOD GAS HCO3 20.1 meq/L (22-26); ARTERIAL BLOOD GAS PCO2 35.8 mmHg (35-45); ARTERIAL BLOOD GAS PO2 86.1 mmHg (80-100); ARTERIAL BLOOD GAS pH 7.37 (7.35-7.45)
[2017-11-11 19:20] LABS: ALBUMIN 3.3 gm/dL (3.5-5.0); BILIRUBIN,TOTAL 0.8 mg/dL (0.0-1.0); CALCIUM 7.9 mg/dL (8.4-10.2); CREATININE, serum 1.29 mg/dL (0.52-1.25); POTASSIUM 3.1 mmol/L (3.4-5.0); TOTAL PROTEIN 6.9 gm/dL (6.4-8.2)
[2017-11-11 19:33] LABS: ARTERIAL BLD GAS O2 SATURATION 97.1 % (92-100); ARTERIAL BLD GAS TCO2 CT 22.6; ARTERIAL BLOOD GAS HCO3 21.4 meq/L (22-26); ARTERIAL BLOOD GAS PCO2 36.8 mmHg (35-45); ARTERIAL BLOOD GAS PO2 98.8 mmHg (80-100); ARTERIAL BLOOD GAS pH 7.38 (7.35-7.45)
[2017-11-12] VITALS (1052 sets, daily range): BP systolic 151–176; BP diastolic 83–105; PULSE 107–122; TEMP 98.5–100; O2SAT 77–99
[2017-11-12 04:22] LABS: ARTERIAL BLD GAS O2 SATURATION 97.8 % (92-100); ARTERIAL BLD GAS TCO2 CT 24.3; ARTERIAL BLOOD GAS BASE EXCESS -0.6 (-2-2); ARTERIAL BLOOD GAS HCO3 23.2 meq/L (22-26); ARTERIAL BLOOD GAS PCO2 35.9 mmHg (35-45); ARTERIAL BLOOD GAS PO2 115.1 mmHg (80-100); ARTERIAL BLOOD GAS pH 7.43 (7.35-7.45)
[2017-11-12 04:49] LABS: CALCIUM 8.5 mg/dL (8.4-10.2); CREATININE, serum 1.19 mg/dL (0.52-1.25); POTASSIUM 3.9 mmol/L (3.4-5.0)
[2017-11-13] VITALS (568 sets, daily range): BP systolic 129–176; BP diastolic 78–102; PULSE 90–99; TEMP 97–98.7; O2SAT 89–100
[2017-11-13 04:40] LABS: ARTERIAL BLD GAS O2 SATURATION 97.5 % (92-100); ARTERIAL BLD GAS TCO2 CT 31.1; ARTERIAL BLOOD GAS BASE EXCESS 8.2 (-2-2); ARTERIAL BLOOD GAS HCO3 30.1 meq/L (22-26); ARTERIAL BLOOD GAS PCO2 33.1 mmHg (35-45); ARTERIAL BLOOD GAS PO2 92.8 mmHg (80-100); ARTERIAL BLOOD GAS pH 7.58 (7.35-7.45)
[2017-11-13 05:55] LABS: HEMATOCRIT 46.7 % (37.0-47.0); HEMOGLOBIN 15.1 g/dl (12.5-16.0); MEAN CELL VOLUME 88 fl (80.0-100.0); MEAN CORPUSCULAR HEMOGLOBIN 28 pg (27.0-31.0); MEAN CORPUSCULAR HGB CONC 32 g/dl (33.0-37.0); MEAN PLATELET VOLUME 10.8 fl (7.4-10.4); PLATELET COUNT 223 K/mm3 (130-400); RED BLOOD COUNT 5.34 M/mm3 (4.10-5.30); REDCELL DISTRIBUTION WIDTH-CV 15.7 % (11.5-14.5)
[2017-11-13 06:10] LABS: BAND 11 % (0-10); BILIRUBIN,TOTAL 0.5 mg/dL (0.0-1.0); CALCIUM 7.8 mg/dL (8.4-10.2); CREATININE, serum 1.24 mg/dL (0.52-1.25); EOSINOPHIL 1 % (0-4); LYMPHOCYTE 22 % (20.0-51.0); MAGNESIUM 2.2 mg/dL (1.6-2.3); NEUTROPHILS 58 % (42.0-75.2); PLATELET ESTIMATE NORMAL (NORMAL); POTASSIUM 3.2 mmol/L (3.4-5.0); TOTAL PROTEIN 6.6 gm/dL (6.4-8.2)
[2017-11-13 09:36] LABS: ARTERIAL BLD GAS TCO2 CT 31.5; ARTERIAL BLOOD GAS BASE EXCESS 6.1 (-2-2); ARTERIAL BLOOD GAS HCO3 30.2 meq/L (22-26); ARTERIAL BLOOD GAS PCO2 41.7 mmHg (35-45); ARTERIAL BLOOD GAS PO2 117.7 mmHg (80-100); ARTERIAL BLOOD GAS pH 7.48 (7.35-7.45)
[2017-11-14] VITALS (1430 sets, daily range): BP systolic 82–155; BP diastolic 49–90; PULSE 90–108; TEMP 97.8–98.5; O2SAT 71–100
[2017-11-14 05:24] LABS: ARTERIAL BLD GAS O2 SATURATION 96.3 % (92-100); ARTERIAL BLD GAS TCO2 CT 39.2; ARTERIAL BLOOD GAS BASE EXCESS 12.6 (-2-2); ARTERIAL BLOOD GAS HCO3 37.7 meq/L (22-26); ARTERIAL BLOOD GAS PCO2 49.1 mmHg (35-45); ARTERIAL BLOOD GAS PO2 84.1 mmHg (80-100)
[2017-11-14 05:51] LABS: BASO # 0.1 (0.0-0.2); BASO % 0.7 % (0.0-2.0); EOS # 0.3 (0.0-0.7); EOS % 2.4 % (0-4.0); GRAN % 77.1 % (42.2-75.2); HEMATOCRIT 40.2 % (37.0-47.0); LYMPH # 1.5 (1.2-3.4); LYMPH % 12.6 % (20.0-51.0); MEAN CELL VOLUME 88 fl (80.0-100.0); MEAN CORPUSCULAR HEMOGLOBIN 28 pg (27.0-31.0); MEAN CORPUSCULAR HGB CONC 32 g/dl (33.0-37.0); MEAN PLATELET VOLUME 10.8 fl (7.4-10.4); MONO # 0.8 (0.1-0.6); MONO % 6.8 % (1.7-9.3); PLATELET COUNT 172 K/mm3 (130-400); RED BLOOD COUNT 4.59 M/mm3 (4.10-5.30); REDCELL DISTRIBUTION WIDTH-CV 15.4 % (11.5-14.5)
[2017-11-14 05:52] LABS: HEMOGLOBIN 12.9 g/dl (12.5-16.0)
[2017-11-14 06:03] LABS: ALBUMIN 2.7 gm/dL (3.5-5.0); BILIRUBIN,TOTAL 0.4 mg/dL (0.0-1.0); CALCIUM 7.5 mg/dL (8.4-10.2); CREATININE, serum 0.87 mg/dL (0.52-1.25); MAGNESIUM 1.8 mg/dL (1.6-2.3); PHOSPHOROUS 3.4 mg/dL (2.5-4.5); POTASSIUM 3.3 mmol/L (3.4-5.0); TOTAL PROTEIN 5.9 gm/dL (6.4-8.2)
[2017-11-14 06:11] LABS: PRE ALBUMIN 12.5 mg/dL (17.6-36.0)
[2017-11-14] MEDS ORDERED: CYMBALTA 60MG60 MG PO (11:50)
[2017-11-14] MEDS ORDERED: WELLBUTRIN XL150 MG PO (11:51)
[2017-11-14] MEDS ORDERED: LEVOXYL0.2 MG PO (11:52)
[2017-11-14] MEDS ORDERED: SEROQUEL 200MG200 MG PO (11:54)
[2017-11-15] VITALS (867 sets, daily range): BP systolic 116–149; BP diastolic 54–83; PULSE 82–99; TEMP 98–99.4; O2SAT 74–100
[2017-11-15 05:13] LABS: BASO # 0.1 (0.0-0.2); BASO % 0.7 % (0.0-2.0); EOS # 0.4 (0.0-0.7); EOS % 4.2 % (0-4.0); HEMOGLOBIN 11.1 g/dl (12.5-16.0); LYMPH # 2.2 (1.2-3.4); LYMPH % 25.9 % (20.0-51.0); MEAN CELL VOLUME 88 fl (80.0-100.0); MEAN CORPUSCULAR HEMOGLOBIN 28 pg (27.0-31.0); MEAN CORPUSCULAR HGB CONC 32 g/dl (33.0-37.0); MEAN PLATELET VOLUME 10.9 fl (7.4-10.4); MONO # 0.7 (0.1-0.6); PLATELET COUNT 149 K/mm3 (130-400); RED BLOOD COUNT 3.91 M/mm3 (4.10-5.30); REDCELL DISTRIBUTION WIDTH-CV 15.2 % (11.5-14.5)
[2017-11-15 05:20] LABS: INR 1.1 (0.8-3.0); PROTHROMBIN TIME 12.5 SECONDS (9.7-12.8)
[2017-11-15 05:23] LABS: ALBUMIN 2.6 gm/dL (3.5-5.0); BILIRUBIN,TOTAL 0.4 mg/dL (0.0-1.0); CALCIUM 7.7 mg/dL (8.4-10.2); CREATININE, serum 0.8 mg/dL (0.52-1.25); MAGNESIUM 1.7 mg/dL (1.6-2.3); PARTIAL THROMBOPLASTIN TIME 35.7 SECONDS (26.0-37.0); POTASSIUM 3.2 mmol/L (3.4-5.0); TOTAL PROTEIN 5.6 gm/dL (6.4-8.2)
[2017-11-15 05:40] LABS: HEMATOCRIT 34.5 % (37.0-47.0)
[2017-11-16] VITALS (7 sets, daily range): BP systolic 124–144; BP diastolic 68–95; PULSE 85–100; TEMP 97.9–98.6
[2017-11-16 07:05] LABS: BILIRUBIN,TOTAL 0.4 mg/dL (0.0-1.0); CALCIUM 8.6 mg/dL (8.4-10.2); CREATININE, serum 0.84 mg/dL (0.52-1.25); POTASSIUM 3.3 mmol/L (3.4-5.0); TOTAL PROTEIN 6.5 gm/dL (6.4-8.2)
[2017-11-17 01:52] LABS: COLLECTION METHOD CLEAN CATCH
[2017-11-17 01:59] LABS: MUCOUS Present /lpf; PH 6 (5-8); URINE APPEARANCE Hazy; URINE BACTERIA Occasional /hpf; URINE BILIRUBIN Negative (NEGATIVE); URINE BLOOD 1+ (NEGATIVE); URINE COLOR Yellow; URINE GLUCOSE Negative (NEGATIVE); URINE KETONE Negative (NEGATIVE); URINE LEUKOCYTE ESTERASE 2+ (NEGATIVE); URINE NITRATE Negative (NEGATIVE); URINE PROTEIN(semi-quant) Negative (NEGATIVE); URINE UROBILINOGEN Negative (NEGATIVE)
[2017-11-17 04:33] VITALS: BP 135/63; PULSE 79; TEMP 98.2
[2017-11-17 07:26] VITALS: BP 128/69; PULSE 74; TEMP 98.4
[2017-11-17 07:50] LABS: CALCIUM 8.4 mg/dL (8.4-10.2); CREATININE, serum 0.77 mg/dL (0.52-1.25); POTASSIUM 3.2 mmol/L (3.4-5.0)
[2017-11-17 12:11] VITALS: BP 126/76; PULSE 84; TEMP 98
[2017-11-17 16:08] VITALS: BP 115/51; PULSE 93; TEMP 98.2
[2017-11-17 20:00] VITALS: BP 135/80; PULSE 85; TEMP 98.5
[2017-11-17 23:44] VITALS: BP 147/88; PULSE 82; TEMP 98.4
[2017-11-18 03:37] VITALS: BP 155/95; PULSE 82; TEMP 98.2
[2017-11-18 06:27] LABS: HEMOGLOBIN 11.9 g/dl (12.5-16.0); MEAN CELL VOLUME 86 fl (80.0-100.0); MEAN CORPUSCULAR HEMOGLOBIN 28 pg (27.0-31.0); MEAN CORPUSCULAR HGB CONC 33 g/dl (33.0-37.0); MEAN PLATELET VOLUME 11.2 fl (7.4-10.4); PLATELET COUNT 240 K/mm3 (130-400); RED BLOOD COUNT 4.19 M/mm3 (4.10-5.30); REDCELL DISTRIBUTION WIDTH-CV 15.1 % (11.5-14.5)
[2017-11-18 06:31] LABS: HEMATOCRIT 35.9 % (37.0-47.0)
[2017-11-18 06:47] LABS: CALCIUM 8.8 mg/dL (8.4-10.2); CREATININE, serum 0.88 mg/dL (0.52-1.25); POTASSIUM 3.7 mmol/L (3.4-5.0)
[2017-11-18 07:19] LABS: BAND 7 % (0-10); EOSINOPHIL 3 % (0-4); LYMPHOCYTE 32 % (20.0-51.0); NEUTROPHILS 54 % (42.0-75.2)
[2017-11-18 07:21] LABS: ANISOCYTOSIS 1+; PLATELET ESTIMATE NORMAL (NORMAL); POLYCHROMASIA 1+
[2017-11-18 08:18] VITALS: BP 150/90; PULSE 87; TEMP 98.2
[2017-11-18] MEDS ORDERED: CEFTIN500 MG PO ×2 (10:32→16:42)
[2017-11-18] MEDS ORDERED: WELLBUTRIN 75MG75 MG PO ×2 (10:35→16:42)
[2017-11-18] MEDS ORDERED: SILVADEN TP ×2 (10:36→16:42)
[2017-11-18 11:57] VITALS: BP 141/84; PULSE 78; TEMP 98.2
[2017-11-18 15:11] VITALS: BP 147/83; PULSE 92; TEMP 97.9
[2017-11-19] MEDS ORDERED: SEROQUEL XR400 M1 PO (19:15)
[2017-11-19] MEDS ORDERED: EPA FISH OIL1 SGL PO (19:15)
[2017-11-19] MEDS ORDERED: SEROQUEL 200MG200 MG PO (19:16)
== END 2017-11-18 17:25 | disposition home or self-care (01) | DRG 917 ==
LOC: COL.ER 11:55 → ICU 13:06 → SURG 11-15 16:50
PROVIDERS: Anesthesiology Critical Care Medicine; Emergency Medicine; Family Medicine; Hospitalist; Internal Medicine Critical Care Medicine; Internal Medicine Pulmonary Disease; Nurse Practitioner Family; Physician Assistant
PROC: 0BH17EZ Insertion of Endotracheal Airway into Trachea, Via Natural or Artificial Opening (ICD-10-PCS; principal; 2017-11-11)
PROC: 5A1945Z Respiratory Ventilation, 24-96 Consecutive Hours (ICD-10-PCS; 2017-11-11)
DX: T43.592A Poisoning by other antipsychotics and neuroleptics, intentional self-harm, initial encounter (principal); J96.01 Acute respiratory failure with hypoxia; G93.41 Metabolic encephalopathy; Z68.43 Body mass index [BMI] 50.0-59.9, adult; N39.0 Urinary tract infection, site not specified; F31.81 Bipolar II disorder; N17.9 Acute kidney failure, unspecified; M62.82 Rhabdomyolysis; T42.4X2A Poisoning by benzodiazepines, intentional self-harm, initial encounter; E66.01 Morbid (severe) obesity due to excess calories; E87.6 Hypokalemia; I10 Essential (primary) hypertension; F43.12 Post-traumatic stress disorder, chronic; F44.9 Dissociative and conversion disorder, unspecified; F41.1 Generalized anxiety disorder; F60.3 Borderline personality disorder; L89.321 Pressure ulcer of left buttock, stage 1
CPT/HCPCS: 99223-AI; 99232-AI; 99233-AI; 99239; C1751; C1894; J0330; J0696; J1200; J1644; J1940; J2060; J2405; J2704; J3010; J3475; J3480; J7030

== ENCOUNTER 2017-11-19 18:50 | Emergency (ER) | payer MEDICARE ==
[~2017-11-19] VITALS: Ht 172.7 cm; Wt 159.1 kg
[~2017-11-19 18:50] MED LIST changes: +CEFTIN500 MG PO; +CYMBALTA 60MG60 MG PO; +LEVOXYL0.2 MG PO; +SEROQUEL 200MG200 MG PO; +SILVADEN TP; +WELLBUTRIN 75MG75 MG PO; +WELLBUTRIN XL150 MG PO
[2017-11-19 18:53] VITALS: BP 144/79; TEMP 98.9
[2017-11-19 19:13] LABS: COLLECTION METHOD CLEAN CATCH
[2017-11-19] MEDS ORDERED: EPA FISH OIL1 SGL PO (19:15)
[2017-11-19] MEDS ORDERED: SEROQUEL XR400 M1 PO (19:15)
[2017-11-19] MEDS ORDERED: SEROQUEL 200MG200 MG PO (19:16)
[2017-11-19 19:22] LABS: MUCOUS Present /lpf; PH 6 (5-8); URINE APPEARANCE Clear; URINE BACTERIA Rare /hpf; URINE BILIRUBIN Negative (NEGATIVE); URINE BLOOD Negative (NEGATIVE); URINE COLOR Straw; URINE GLUCOSE Negative (NEGATIVE); URINE KETONE Negative (NEGATIVE); URINE LEUKOCYTE ESTERASE Negative (NEGATIVE); URINE NITRATE Negative (NEGATIVE); URINE PROTEIN(semi-quant) Negative (NEGATIVE); URINE UROBILINOGEN Negative (NEGATIVE)
[2017-11-19 19:31] LABS: HEMATOCRIT 37.7 % (37.0-47.0); HEMOGLOBIN 12.7 g/dl (12.5-16.0); MEAN CELL VOLUME 86 fl (80.0-100.0); MEAN CORPUSCULAR HEMOGLOBIN 29 pg (27.0-31.0); MEAN CORPUSCULAR HGB CONC 34 g/dl (33.0-37.0); MEAN PLATELET VOLUME 10.6 fl (7.4-10.4); PLATELET COUNT 264 K/mm3 (130-400); RED BLOOD COUNT 4.38 M/mm3 (4.10-5.30); REDCELL DISTRIBUTION WIDTH-CV 15.6 % (11.5-14.5)
[2017-11-19 19:33] LABS: TRICYCLIC ANTIDEPRESS URINE POSITIVE
[2017-11-19 19:41] LABS: ALANINE AMINOTRANSFERASE 83 U/L (9-52); ALBUMIN 3.4 gm/dL (3.5-5.0); ALKALINE PHOSPHATASE 105 U/L (50-136); ANION GAP 12 mmol/L (7-16); AST,SGOT 91 U/L (15-37); BILIRUBIN,TOTAL 0.5 mg/dL (0.0-1.0); BLOOD UREA NITROGEN 9 mg/dL (7-17); CALCIUM 8.7 mg/dL (8.4-10.2); CARBON DIOXIDE 26 mmol/L (22-30); CHLORIDE 104 mmol/L (98-107); GLUCOSE 94 mg/dL (74-106); POTASSIUM 3.5 mmol/L (3.4-5.0); SODIUM 142 mmol/L (137-145); TOTAL PROTEIN 7.1 gm/dL (6.4-8.2)
[2017-11-19 19:44] LABS: ACETAMINOPHEN < 10 ug/mL (10-30); ALCOHOL(ethanol),MEDICAL < 10 mg/dL; SALICYLATE < 1.0 mg/dL
[2017-11-19 19:52] LABS: BAND 7 % (0-10); BASOPHIL 1 % (0-2); LYMPHOCYTE 35 % (20.0-51.0); METAMYELOCYTE 1 % (0-0); NEUTROPHILS 51 % (42.0-75.2)
[2017-11-19 19:53] LABS: ANISOCYTOSIS 1+; PLATELET ESTIMATE NORMAL (NORMAL)
[2017-11-19 23:51] VITALS: PULSE 93
== END 2017-11-19 23:51 | disposition home or self-care (01) ==
LOC: COL.ER 18:50
PROVIDERS: Emergency Medicine
DX: F60.3 Borderline personality disorder (principal); R45.851 Suicidal ideations; F31.9 Bipolar disorder, unspecified; I10 Essential (primary) hypertension; F12.90 Cannabis use, unspecified, uncomplicated; F17.210 Nicotine dependence, cigarettes, uncomplicated

== ENCOUNTER 2017-11-20 16:17 | Emergency (ER) | payer MEDICARE ==
[~2017-11-20] VITALS: Ht 167.6 cm; Wt 136.4 kg
[~2017-11-20 16:17] MED LIST changes: +EPA FISH OIL1 SGL PO
[2017-11-20 17:49] LABS: BASO # 0.1 (0.0-0.2); BASO % 0.9 % (0.0-2.0); EOS # 0.4 (0.0-0.7); EOS % 2.7 % (0-4.0); GRAN # 7.8 (1.4-6.5); GRAN % 61.1 % (42.2-75.2); HEMATOCRIT 41.2 % (37.0-47.0); HEMOGLOBIN 13.4 g/dl (12.5-16.0); LYMPH # 3.2 (1.2-3.4); LYMPH % 24.7 % (20.0-51.0); MEAN CELL VOLUME 87 fl (80.0-100.0); MEAN CORPUSCULAR HEMOGLOBIN 28 pg (27.0-31.0); MEAN CORPUSCULAR HGB CONC 33 g/dl (33.0-37.0); MEAN PLATELET VOLUME 10.6 fl (7.4-10.4); MONO # 0.8 (0.1-0.6); MONO % 5.9 % (1.7-9.3); PLATELET COUNT 222 K/mm3 (130-400); RED BLOOD COUNT 4.76 M/mm3 (4.10-5.30); REDCELL DISTRIBUTION WIDTH-CV 15.8 % (11.5-14.5)
[2017-11-20 18:00] LABS: ALANINE AMINOTRANSFERASE 87 U/L (9-52); ALBUMIN 3.9 gm/dL (3.5-5.0); ALKALINE PHOSPHATASE 93 U/L (50-136); ANION GAP 12 mmol/L (7-16); AST,SGOT 83 U/L (15-37); BILIRUBIN,TOTAL 0.6 mg/dL (0.0-1.0); BLOOD UREA NITROGEN 10 mg/dL (7-17); CARBON DIOXIDE 28 mmol/L (22-30); CHLORIDE 100 mmol/L (98-107); CREATININE, serum 1.09 mg/dL (0.52-1.25); GLUCOSE 87 mg/dL (74-106); POTASSIUM 3.4 mmol/L (3.4-5.0); SODIUM 140 mmol/L (137-145); TOTAL PROTEIN 8.1 gm/dL (6.4-8.2)
[2017-11-20 18:06] LABS: ACETAMINOPHEN < 10 ug/mL (10-30); ALCOHOL(ethanol),MEDICAL < 10 mg/dL; SALICYLATE < 1.0 mg/dL
[2017-11-22 13:45] LABS: COLLECTION METHOD CLEAN CATCH
[2017-11-22 13:52] LABS: MUCOUS Present /lpf; PH 5 (5-8); SQUAMOUS EPITHELIAL 20-50 /hpf; URINE APPEARANCE Cloudy; URINE BACTERIA None Seen /hpf; URINE BILIRUBIN Negative (NEGATIVE); URINE BLOOD Negative (NEGATIVE); URINE COLOR Yellow; URINE GLUCOSE Negative (NEGATIVE); URINE KETONE Negative (NEGATIVE); URINE LEUKOCYTE ESTERASE 2+ (NEGATIVE); URINE NITRATE Negative (NEGATIVE); URINE PROTEIN(semi-quant) Negative (NEGATIVE); URINE UROBILINOGEN Negative (NEGATIVE)
[2017-11-22 14:07] LABS: TRICYCLIC ANTIDEPRESS URINE POSITIVE
[2017-11-23 23:05] LABS: BASO # 0.1 (0.0-0.2); BASO % 1.1 % (0.0-2.0); EOS # 0.3 (0.0-0.7); EOS % 3.3 % (0-4.0); GRAN % 61.6 % (42.2-75.2); HEMATOCRIT 38.6 % (37.0-47.0); HEMOGLOBIN 12.5 g/dl (12.5-16.0); LYMPH # 2.7 (1.2-3.4); LYMPH % 28.1 % (20.0-51.0); MEAN CELL VOLUME 88 fl (80.0-100.0); MEAN CORPUSCULAR HEMOGLOBIN 28 pg (27.0-31.0); MEAN CORPUSCULAR HGB CONC 32 g/dl (33.0-37.0); MEAN PLATELET VOLUME 10.3 fl (7.4-10.4); MONO # 0.5 (0.1-0.6); MONO % 4.8 % (1.7-9.3); PLATELET COUNT 348 K/mm3 (130-400); REDCELL DISTRIBUTION WIDTH-CV 15.9 % (11.5-14.5)
[2017-11-23 23:21] LABS: ALBUMIN 3.7 gm/dL (3.5-5.0); BILIRUBIN,TOTAL 0.5 mg/dL (0.0-1.0); CALCIUM 9.8 mg/dL (8.4-10.2); CREATININE, serum 0.98 mg/dL (0.52-1.25); POTASSIUM 3.9 mmol/L (3.4-5.0); TOTAL PROTEIN 7.3 gm/dL (6.4-8.2)
[2017-11-24 06:04] LABS: COLLECTION METHOD CLEAN CATCH
[2017-11-24 06:17] LABS: MUCOUS Present /lpf; PH 5 (5-8); URINE APPEARANCE Cloudy; URINE BACTERIA None Seen /hpf; URINE BILIRUBIN Negative (NEGATIVE); URINE BLOOD Negative (NEGATIVE); URINE CALCIUM OXALATE CRYSTAL Present /hpf; URINE COLOR Yellow; URINE GLUCOSE Negative (NEGATIVE); URINE KETONE Negative (NEGATIVE); URINE LEUKOCYTE ESTERASE Trace (NEGATIVE); URINE NITRATE Negative (NEGATIVE); URINE PROTEIN(semi-quant) Negative (NEGATIVE); URINE UROBILINOGEN Negative (NEGATIVE)
[2017-11-24 08:54] VITALS: BP 128/54; PULSE 95; TEMP 97.3
== END 2017-11-24 09:49 ==
LOC: COL.ER 16:17
PROVIDERS: Emergency Medicine; Physician Assistant
DX: R45.851 Suicidal ideations (principal); J45.909 Unspecified asthma, uncomplicated; F44.81 Dissociative identity disorder; F17.210 Nicotine dependence, cigarettes, uncomplicated

== ENCOUNTER 2017-12-25 17:33 | Emergency (ER) | payer MEDICARE ==
[~2017-12-25] VITALS: Ht 167.6 cm; Wt 131.8 kg
[2017-12-25 17:53] VITALS: TEMP 98.6
[2017-12-25 18:33] LABS: BASO # 0.1 (0.0-0.2); BASO % 0.7 % (0.0-2.0); EOS # 0.3 (0.0-0.7); GRAN # 5.5 (1.4-6.5); GRAN % 60.5 % (42.2-75.2); HEMATOCRIT 39.5 % (37.0-47.0); HEMOGLOBIN 13.1 g/dl (12.5-16.0); LYMPH # 2.5 (1.2-3.4); LYMPH % 27.7 % (20.0-51.0); MEAN CELL VOLUME 86 fl (80.0-100.0); MEAN CORPUSCULAR HEMOGLOBIN 28 pg (27.0-31.0); MEAN CORPUSCULAR HGB CONC 33 g/dl (33.0-37.0); MEAN PLATELET VOLUME 9.9 fl (7.4-10.4); MONO # 0.7 (0.1-0.6); MONO % 7.2 % (1.7-9.3); PLATELET COUNT 291 K/mm3 (130-400); RED BLOOD COUNT 4.62 M/mm3 (4.10-5.30); REDCELL DISTRIBUTION WIDTH-CV 14.9 % (11.5-14.5)
[2017-12-25 18:57] LABS: ALANINE AMINOTRANSFERASE 59 U/L (9-52); ALBUMIN 4.2 gm/dL (3.5-5.0); ALKALINE PHOSPHATASE 124 U/L (50-136); ANION GAP 10 mmol/L (7-16); AST,SGOT 52 U/L (15-37); BILIRUBIN,TOTAL 0.3 mg/dL (0.0-1.0); BLOOD UREA NITROGEN 12 mg/dL (7-17); CALCIUM 9.2 mg/dL (8.4-10.2); CARBON DIOXIDE 28 mmol/L (22-30); CHLORIDE 101 mmol/L (98-107); CREATININE, serum 0.96 mg/dL (0.52-1.25); GLUCOSE 102 mg/dL (74-106); POTASSIUM 3.3 mmol/L (3.4-5.0); SODIUM 139 mmol/L (137-145); TOTAL PROTEIN 7.7 gm/dL (6.4-8.2)
[2017-12-25 19:02] LABS: ACETAMINOPHEN < 10 ug/mL (10-30); ALCOHOL(ethanol),MEDICAL < 10 mg/dL; SALICYLATE < 1.0 mg/dL
[2017-12-25 19:13] LABS: COLLECTION METHOD CLEAN CATCH
[2017-12-25 19:27] LABS: MUCOUS Present /lpf; PH 5 (5-8); SQUAMOUS EPITHELIAL 20-50 /hpf; URINE APPEARANCE Cloudy; URINE BACTERIA Rare /hpf; URINE BILIRUBIN Negative (NEGATIVE); URINE BLOOD 3+ (NEGATIVE); URINE COLOR Yellow; URINE GLUCOSE Negative (NEGATIVE); URINE KETONE Trace (NEGATIVE); URINE LEUKOCYTE ESTERASE Trace (NEGATIVE); URINE NITRATE Negative (NEGATIVE); URINE PROTEIN(semi-quant) 2+ (NEGATIVE); URINE RBC >50 /hpf
[2017-12-25 19:38] LABS: TRICYCLIC ANTIDEPRESS URINE POSITIVE
[2017-12-26 04:18] VITALS: BP 139/93; PULSE 86
== END 2017-12-26 04:18 ==
LOC: COL.ER 17:33
PROVIDERS: Emergency Medicine
DX: R45.851 Suicidal ideations (principal); E87.6 Hypokalemia; F41.9 Anxiety disorder, unspecified; I10 Essential (primary) hypertension; F31.9 Bipolar disorder, unspecified; F43.10 Post-traumatic stress disorder, unspecified; F12.90 Cannabis use, unspecified, uncomplicated; F44.81 Dissociative identity disorder; Z91.5 Personal history of self-harm

== ENCOUNTER 2018-01-28 12:15 | Emergency (ER) | payer MEDICARE ==
[~2018-01-28] VITALS: Ht 170.2 cm; Wt 136.4 kg
[2018-01-28 12:30] VITALS: TEMP 99.5
[2018-01-28 13:02] LABS: BASO # 0.1 (0.0-0.2); BASO % 0.8 % (0.0-2.0); EOS # 0.3 (0.0-0.7); EOS % 2.5 % (0-4.0); GRAN # 6.1 (1.4-6.5); GRAN % 59.7 % (42.2-75.2); HEMATOCRIT 39.8 % (37.0-47.0); HEMOGLOBIN 12.9 g/dl (12.5-16.0); LYMPH # 3.1 (1.2-3.4); LYMPH % 29.9 % (20.0-51.0); MEAN CELL VOLUME 85 fl (80.0-100.0); MEAN CORPUSCULAR HEMOGLOBIN 28 pg (27.0-31.0); MEAN CORPUSCULAR HGB CONC 32 g/dl (33.0-37.0); MEAN PLATELET VOLUME 9.9 fl (7.4-10.4); MONO # 0.7 (0.1-0.6); MONO % 6.5 % (1.7-9.3); PLATELET COUNT 288 K/mm3 (130-400); RED BLOOD COUNT 4.69 M/mm3 (4.10-5.30); REDCELL DISTRIBUTION WIDTH-CV 14.6 % (11.5-14.5)
[2018-01-28 13:12] LABS: COLLECTION METHOD CLEAN CATCH
[2018-01-28 13:21] LABS: ALANINE AMINOTRANSFERASE 60 U/L (9-52); ALBUMIN 4.1 gm/dL (3.5-5.0); ALKALINE PHOSPHATASE 118 U/L (50-136); ANION GAP 11 mmol/L (7-16); AST,SGOT 42 U/L (15-37); BILIRUBIN,TOTAL 0.2 mg/dL (0.0-1.0); BLOOD UREA NITROGEN 8 mg/dL (7-17); CALCIUM 9.2 mg/dL (8.4-10.2); CARBON DIOXIDE 24 mmol/L (22-30); CHLORIDE 102 mmol/L (98-107); CREATININE, serum 0.75 mg/dL (0.52-1.25); GLUCOSE 91 mg/dL (74-106); MAGNESIUM 1.7 mg/dL (1.6-2.3); PHOSPHOROUS 3.3 mg/dL (2.5-4.5); POTASSIUM 3.7 mmol/L (3.4-5.0); SODIUM 137 mmol/L (137-145); TOTAL PROTEIN 7.7 gm/dL (6.4-8.2)
[2018-01-28 13:23] LABS: MUCOUS Present /lpf; PH 5 (5-8); URINE APPEARANCE Clear; URINE BACTERIA Rare /hpf; URINE BILIRUBIN Negative (NEGATIVE); URINE BLOOD Negative (NEGATIVE); URINE COLOR Yellow; URINE GLUCOSE Negative (NEGATIVE); URINE KETONE Trace (NEGATIVE); URINE LEUKOCYTE ESTERASE Negative (NEGATIVE); URINE NITRATE Negative (NEGATIVE); URINE PROTEIN(semi-quant) 1+ (NEGATIVE); URINE RBC 0-2 /hpf; URINE UROBILINOGEN Negative (NEGATIVE)
[2018-01-28 13:26] LABS: ACETAMINOPHEN < 10 ug/mL (10-30); ALCOHOL(ethanol),MEDICAL < 10 mg/dL; SALICYLATE < 1.0 mg/dL
[2018-01-28 13:33] LABS: TROPONIN-I < 0.012 ng/mL (0.000-0.034)
[2018-01-28 13:34] LABS: TRICYCLIC ANTIDEPRESS URINE POSITIVE
[2018-01-28 13:50] LABS: TSH w REFLEX 0.658 uIU/mL (0.465-4.680)
[2018-01-28 18:24] VITALS: BP 137/91; PULSE 97
== END 2018-01-28 18:24 | disposition home or self-care (01) ==
LOC: COL.ER 12:15
PROVIDERS: Emergency Medicine
DX: F32.9 Major depressive disorder, single episode, unspecified (principal); R45.851 Suicidal ideations; F43.10 Post-traumatic stress disorder, unspecified; F17.210 Nicotine dependence, cigarettes, uncomplicated; F12.90 Cannabis use, unspecified, uncomplicated

== ENCOUNTER 2018-01-31 20:02 | Emergency (ER) | payer MEDICARE ==
[2018-01-31 20:11] VITALS: TEMP 99.5
[2018-01-31 20:34] LABS: BASO # 0.1 (0.0-0.2); BASO % 0.8 % (0.0-2.0); EOS # 0.2 (0.0-0.7); EOS % 2.7 % (0-4.0); GRAN # 4.6 (1.4-6.5); GRAN % 51.4 % (42.2-75.2); HEMATOCRIT 39.1 % (37.0-47.0); HEMOGLOBIN 12.6 g/dl (12.5-16.0); LYMPH # 3.3 (1.2-3.4); LYMPH % 36.8 % (20.0-51.0); MEAN CELL VOLUME 85 fl (80.0-100.0); MEAN CORPUSCULAR HEMOGLOBIN 27 pg (27.0-31.0); MEAN CORPUSCULAR HGB CONC 32 g/dl (33.0-37.0); MEAN PLATELET VOLUME 9.8 fl (7.4-10.4); MONO # 0.7 (0.1-0.6); MONO % 7.6 % (1.7-9.3); PLATELET COUNT 280 K/mm3 (130-400); REDCELL DISTRIBUTION WIDTH-CV 14.7 % (11.5-14.5)
[2018-01-31 20:46] LABS: COLLECTION METHOD CLEAN CATCH
[2018-01-31 20:52] LABS: MUCOUS Present /lpf; PH 7 (5-8); URINE APPEARANCE Clear; URINE BACTERIA Rare /hpf; URINE BILIRUBIN Negative (NEGATIVE); URINE BLOOD Negative (NEGATIVE); URINE COLOR Yellow; URINE GLUCOSE Negative (NEGATIVE); URINE KETONE Negative (NEGATIVE); URINE LEUKOCYTE ESTERASE Negative (NEGATIVE); URINE NITRATE Negative (NEGATIVE); URINE PROTEIN(semi-quant) Negative (NEGATIVE); URINE RBC 0-2 /hpf; URINE UROBILINOGEN Negative (NEGATIVE)
[2018-01-31 20:58] LABS: ACETAMINOPHEN < 10 ug/mL (10-30); ALANINE AMINOTRANSFERASE 53 U/L (9-52); ALBUMIN 3.9 gm/dL (3.5-5.0); ALCOHOL(ethanol),MEDICAL < 10 mg/dL; ALKALINE PHOSPHATASE 88 U/L (50-136); ANION GAP 10 mmol/L (7-16); AST,SGOT 32 U/L (15-37); BILIRUBIN,TOTAL 0.2 mg/dL (0.0-1.0); BLOOD UREA NITROGEN 5 mg/dL (7-17); CALCIUM 8.8 mg/dL (8.4-10.2); CARBON DIOXIDE 25 mmol/L (22-30); CHLORIDE 104 mmol/L (98-107); CREATININE, serum 0.76 mg/dL (0.52-1.25); GLUCOSE 84 mg/dL (74-106); PHOSPHOROUS 3.2 mg/dL (2.5-4.5); POTASSIUM 3.7 mmol/L (3.4-5.0); SALICYLATE < 1.0 mg/dL; SODIUM 139 mmol/L (137-145); TOTAL PROTEIN 7.3 gm/dL (6.4-8.2)
[2018-01-31 21:02] LABS: TRICYCLIC ANTIDEPRESS URINE POSITIVE
[2018-01-31 21:26] LABS: TSH w REFLEX 0.963 uIU/mL (0.465-4.680)
[2018-02-01 07:21] VITALS: BP 130/72; PULSE 89
== END 2018-02-01 07:47 ==
LOC: COL.ER 20:02
PROVIDERS: Emergency Medicine
DX: R45.851 Suicidal ideations (principal); F32.9 Major depressive disorder, single episode, unspecified

== ENCOUNTER → 2018-03-09 | Outpatient (CLI) | payer MEDICARE ==
[2018-03-09 16:18] LABS: CALCIUM 8.7 mg/dL (8.4-10.2); CREATININE, serum 0.86 mg/dL (0.52-1.25); POTASSIUM 3.5 mmol/L (3.4-5.0)
== END ==
LOC: COL.LAB 14:46
PROVIDERS: Family Medicine
DX: Z51.81 Encounter for therapeutic drug level monitoring (principal)

== ENCOUNTER 2018-06-19 17:22 | Outpatient (CLI) | payer MEDICARE ==
[~2018-06-19] VITALS: Ht 48.3 cm; Wt 142.6 kg
[~2018-06-19 17:22] MED LIST changes: -K-DUR20 MEQ PO; -NEURONTIN300 MG/CAP PO; -REVIA 50MG TABL50 MG PO; -REXULTI2 MG PO
[2018-06-19 17:47] VITALS: BP 132/90; PULSE 97; TEMP 98.2
--- NOTE | 2018-06-19 21:15 | NUR ---
INT discontinued intact.
== END 2018-06-19 21:15 | disposition home or self-care (01) ==
LOC: EUO 17:22
DX: E87.6 Hypokalemia (principal)
CPT/HCPCS: J3480; J7030

== ENCOUNTER → 2018-06-19 | Outpatient (CLI) | payer MEDICARE ==
[~2018-06-19] MED LIST changes: +K-DUR20 MEQ PO; +NEURONTIN300 MG/CAP PO; +REVIA 50MG TABL50 MG PO; +REXULTI2 MG PO
[2018-06-19 15:33] LABS: BASO % 0.5 % (0.0-2.0); EOS # 0.3 (0.0-0.7); EOS % 3.3 % (0-4.0); GRAN # 4.5 (1.4-6.5); GRAN % 50.7 % (42.2-75.2); HEMATOCRIT 45.8 % (37.0-47.0); LYMPH # 3.3 (1.2-3.4); LYMPH % 37.6 % (20.0-51.0); MEAN CELL VOLUME 85 fl (80.0-100.0); MEAN CORPUSCULAR HEMOGLOBIN 28 pg (27.0-31.0); MEAN CORPUSCULAR HGB CONC 33 g/dl (33.0-37.0); MEAN PLATELET VOLUME 10.2 fl (7.4-10.4); MONO # 0.6 (0.1-0.6); MONO % 7.3 % (1.7-9.3); PLATELET COUNT 300 K/mm3 (130-400); RED BLOOD COUNT 5.38 M/mm3 (4.10-5.30); REDCELL DISTRIBUTION WIDTH-CV 16.4 % (11.5-14.5)
[2018-06-19 15:44] LABS: ALBUMIN 4.2 gm/dL (3.5-5.0); BILIRUBIN,TOTAL 0.3 mg/dL (0.0-1.0); CALCIUM 8.6 mg/dL (8.4-10.2); CREATININE, serum 1.01 mg/dL (0.52-1.25); TOTAL PROTEIN 7.9 gm/dL (6.4-8.2)
[2018-06-19 15:47] LABS: POTASSIUM 2.8 mmol/L (3.4-5.0)
[2018-06-19 23:59] LABS: FECAL FAT HOURS RANDOM (())
== END ==
LOC: COL.LAB 14:48
PROVIDERS: Family Medicine
DX: R19.7 Diarrhea, unspecified (principal)

== ENCOUNTER → 2018-06-20 | Outpatient (CLI) | payer MEDICARE ==
[~2018-06-20] MED LIST changes: +K-DUR20 MEQ PO; +NEURONTIN300 MG/CAP PO; +REVIA 50MG TABL50 MG PO; +REXULTI2 MG PO
[2018-06-20 15:36] LABS: CREATININE, serum 1.08 mg/dL (0.52-1.25)
== END ==
LOC: COL.LAB 14:45
PROVIDERS: Family Medicine
DX: E78.6 Lipoprotein deficiency (principal)

== ENCOUNTER 2018-06-21 17:58 | Inpatient (IN) | payer MEDICARE ==
[~2018-06-21] VITALS: Ht 167.6 cm; Wt 141.8 kg
[~2018-06-21 17:58] MED LIST changes: -K-DUR20 MEQ PO; -NEURONTIN300 MG/CAP PO; -REVIA 50MG TABL50 MG PO; -REXULTI2 MG PO
[2018-06-21 18:14] VITALS: BP 121/81; PULSE 97
[2018-06-21 18:36] LABS: BASO # 0.1 (0.0-0.2); BASO % 0.7 % (0.0-2.0); EOS # 0.4 (0.0-0.7); EOS % 5.2 % (0-4.0); GRAN # 3.8 (1.4-6.5); GRAN % 51.9 % (42.2-75.2); HEMATOCRIT 41.7 % (37.0-47.0); HEMOGLOBIN 13.5 g/dl (12.5-16.0); LYMPH # 2.6 (1.2-3.4); LYMPH % 35.5 % (20.0-51.0); MEAN CELL VOLUME 86 fl (80.0-100.0); MEAN CORPUSCULAR HEMOGLOBIN 28 pg (27.0-31.0); MEAN CORPUSCULAR HGB CONC 32 g/dl (33.0-37.0); MEAN PLATELET VOLUME 10.7 fl (7.4-10.4); MONO # 0.4 (0.1-0.6); MONO % 5.9 % (1.7-9.3); PLATELET COUNT 261 K/mm3 (130-400); RED BLOOD COUNT 4.87 M/mm3 (4.10-5.30); REDCELL DISTRIBUTION WIDTH-CV 15.9 % (11.5-14.5)
[2018-06-21 18:47] LABS: ALANINE AMINOTRANSFERASE 36 U/L (9-52); ALBUMIN 3.6 gm/dL (3.5-5.0); ALKALINE PHOSPHATASE 140 U/L (50-136); ANION GAP 7 mmol/L (7-16); AST,SGOT 32 U/L (15-37); BILIRUBIN,TOTAL 0.2 mg/dL (0.0-1.0); BLOOD UREA NITROGEN 8 mg/dL (7-17); CARBON DIOXIDE 31 mmol/L (22-30); CHLORIDE 103 mmol/L (98-107); CREATININE, serum 0.98 mg/dL (0.52-1.25); GLUCOSE 145 mg/dL (74-106); SODIUM 141 mmol/L (137-145); TOTAL PROTEIN 7.1 gm/dL (6.4-8.2)
[2018-06-21 18:53] LABS: POTASSIUM 2.7 mmol/L (3.4-5.0)
[2018-06-21 18:59] LABS: TROPONIN-I < 0.012 ng/mL (0.000-0.034)
[2018-06-21] MEDS ORDERED: K-DUR20 MEQ PO (21:10)
[2018-06-21] MEDS ORDERED: REVIA 50MG TABL50 MG PO ×2 (21:11→21:12)
[2018-06-21] MEDS ORDERED: CYMBALTA 60MG60 MG PO (21:14)
[2018-06-21] MEDS ORDERED: SYNTHROID0.2 MG/TAB PO (21:15)
[2018-06-21] MEDS ORDERED: NEURONTIN300 MG/CAP PO (21:16)
[2018-06-21] MEDS ORDERED: REXULTI2 MG PO (21:17)
--- NOTE | 2018-06-21 21:30 | NUR ---
Arrived from ED. Orientated patient to medical floor. Denies needs at this time. Med. rec. complete.
[2018-06-21 22:00] VITALS: BP 136/81; PULSE 87
--- NOTE | 2018-06-21 22:30 | NUR ---
Up to restroom and returned to bed. Suicide precautions in place.
[2018-06-21 23:54] VITALS: BP 136/81; PULSE 87; TEMP 98.2
[2018-06-22] VITALS (33 sets, daily range): BP systolic 115–148; BP diastolic 56–88; PULSE 42–88; TEMP 94–98.7
--- NOTE | 2018-06-22 00:51 | NUR ---
Resting in bed. Suicide precautions initiated. IV tubing and telemetry remain in room as part of treatment for patient. Sitter in doorway with patient. Patient educated on precautions, voices understanding, and thanked staff for being "there for me." Denies needs at this time. Denies pain.
--- NOTE | 2018-06-22 01:22 | NUR ---
Reports potassium in left AC "jeff" decreased rate over last hour, reports burning still. Switched tubing to site in right forearm. Potassium rate decreased to 85ml/hr with NS at 50ml/hr. Mattie aware. Will monitor. Sitter in doorway.
--- NOTE | 2018-06-22 02:09 | NUR ---
Patient request nicotine patch, seroquel, and neurontin. Spoke with KIBMERLEE Phelps. Verbal order for nicotine given. Will resume home medications.
--- NOTE | 2018-06-22 03:50 | NUR ---
Sitting at bedside. NEUROUROLOGIST sitting in doorway. Reports some IV site pain from potassium infusing. NS running for dilution. Denies needs at this time.
--- NOTE | 2018-06-22 04:17 | NUR ---
Sitting at bedside. RADIAL DRILL OPERATOR sitting in doorway. Denies needs at this time. Call light in reach.
[2018-06-22 06:16] LABS: BASO % 0.5 % (0.0-2.0); EOS # 0.4 (0.0-0.7); EOS % 6.5 % (0-4.0); GRAN # 2.6 (1.4-6.5); HEMATOCRIT 38.8 % (37.0-47.0); HEMOGLOBIN 12.3 g/dl (12.5-16.0); LYMPH # 2.4 (1.2-3.4); LYMPH % 41.3 % (20.0-51.0); MEAN CELL VOLUME 87 fl (80.0-100.0); MEAN CORPUSCULAR HEMOGLOBIN 28 pg (27.0-31.0); MEAN CORPUSCULAR HGB CONC 32 g/dl (33.0-37.0); MEAN PLATELET VOLUME 10.6 fl (7.4-10.4); MONO # 0.4 (0.1-0.6); PLATELET COUNT 229 K/mm3 (130-400); RED BLOOD COUNT 4.48 M/mm3 (4.10-5.30); REDCELL DISTRIBUTION WIDTH-CV 16.3 % (11.5-14.5)
--- NOTE | 2018-06-22 06:18 | NUR ---
Report IV site right forearm burning. Upon assessment IV site red just above insertion. Stopped potassium. Patient would like to "take a break" and try again later. IV tubing disconnected. Denies other needs. Will monitor. Otherwise uneventful night.
[2018-06-22 06:30] LABS: CALCIUM 8.2 mg/dL (8.4-10.2); CREATININE, serum 0.91 mg/dL (0.52-1.25); MAGNESIUM 1.8 mg/dL (1.6-2.3); POTASSIUM 3.7 mmol/L (3.4-5.0)
--- NOTE | 2018-06-22 08:36 | NUR ---
PT. FALLS TO SLEEP EASILY; AWAKENS FOR DRINK; VOICES CONCERNS ABOUT SINUS CONGESTION WHEN LYING DOWN AT NIGHT. ASLEEP AGAIN.
--- NOTE | 2018-06-22 08:43 | NUR ---
PT. IS AWAKE AND REQUESTS BREAKFAST; CLEAR LIQUIDS GIVEN ORDERED; PT. USES FLUIDS TO STOP HER DRY THROAT WHEN FALLS TO SLEEP FROM MOUTH BREATHING.
--- NOTE | 2018-06-22 08:49 | NUR ---
PT. SAYS SHE WOULD BE HAPPY IF SHE COULD LOOSE 100 LBS.
--- NOTE | 2018-06-22 08:55 | NUR ---
PT. REPORTS BECAUSE OF HER WEIGHT SHE IS NOT ABLE TO DO GOOD WIPING POST CONTINENT VOIDS. KNOWS SHE NEEDS TO GIVE BM SPECIMEN BUT SAYS NOT ABLE TO HAVE BM NOW.
--- NOTE | 2018-06-22 09:01 | NUR ---
PT. FELL TO SLEEP BUT AWAKENS INTERMITTENTLY FOR DRINK OF FLUIDS; STATES HAS CPAP AT HOT AND NEEDS TO BE CHECKED OUT BY 11:00 TODAY; INFORMED CHARGE NURSE AND MERCURY CELL CLEANER TO CALL S.S.
--- NOTE | 2018-06-22 09:12 | NUR ---
PT. CONTINUES TO SLEEP, AWAKEN, DRINK SIPS OF FLUID. REQUESTS HER ROUTINE MEDS. RN NOTIFIED.
--- NOTE | 2018-06-22 09:15 | NUR ---
NURSE WILL BE HERE SHORTLY TO GIVE MEDS; PT. INFORMED AND S.S. NOTIFIED PT. OF CHOICES TO PAY EXTRA DAY OR BAG PERSONAL ITEMS; PT. SAYS BAG ITEMS AND NOT ANY MONEY TO PAY FOR HOTEL; HAS CPAP AND WALKER AT HOTEL; REVIEWED OPTIONS FOR PT. FOR [facility]; FOOD; AND PERSONAL NEEDS.
--- NOTE | 2018-06-22 09:54 | NUR ---
Pt resting in bed; suicide precautions in place. Pt states she is worried her psychiatric issues may get out of control as she has not been able to keep her medications down. She is pleasant at this time, alert and oriented. Denies any nausea this morning; potassium replacement switched to oral. Denies further needs at this time; will continue to monitor.
--- NOTE | 2018-06-22 11:53 | NUR ---
PT. STATES FEELS TINGLING IN HER FACE; REASSSURED NOT FROM HER O2 SATS BEING IN HIGH 90s when she asked
--- NOTE | 2018-06-22 12:43 | NUR ---
PT. TO SLEEP AFTER HOSPITALIST TO SEE PT.
--- NOTE | 2018-06-22 12:58 | NUR ---
PT. USES CANE FOR UNSTEADINESS TO GAIT FROM RIOR INJURY TO R ANKLE IN THE PAST PER PT.
--- NOTE | 2018-06-22 13:44 | NUR ---
PT. SAYS SHE WAS SO GLAD TO GET REGULAR FOOD AND NOT ABLE TO EAT ALL OF IT; NAUSEATED AND REQUESTS ZOFRAN AND ICEED WATER ONLY; RN INFORMED.
--- NOTE | 2018-06-22 13:57 | NUR ---
rn to see pt. and give med for nausea.
--- NOTE | 2018-06-22 14:10 | NUR ---
SW met with the patient to discuss discharge plan. The patient has been staying at the [facility] after breaking up with her boyfriend. She states that she is on the public housing list and should be getting a call from them today. She reports independence with ADLs and has a cane, walker, and a CPAP from [facility]. The patient's PCP is Dr. Olga Lidia Izaguirre and she receives her medications from [facility]. The patient states that she does not have a vehicle, but will utilize Uber and other transportation services. She states that she does not have any money and that she is suppose to check-out from the [facility] today. SW contacted [facility] and they have bagged her belongings and are keeping them for her. The patient was informed of this and she was agreeable. SW discussed staying at the homeless assisted in [place]. The patient states she would be agreeable to this. A psych consult has been ordered. SW to continue to follow.
--- NOTE | 2018-06-22 16:13 | NUR ---
Due to the patient not having her cell phone, JOCELYNN contacted [facility] to inquire if the patient was approved for public housing. Concepcion at [facility] reports that they are still processing her application and that they would contact JOCELYNN back when they are finished. JOCELYNN to continue to follow. [facility] ph#[phone]
--- NOTE | 2018-06-22 17:33 | NUR ---
no change in BH orders but not needing isolation precautions from now on because she washed her hair and did throurgh shower; telemetry replaced on pt.
--- NOTE | 2018-06-22 17:38 | NUR ---
ready to order fluids and will order supper later.
--- NOTE | 2018-06-22 17:42 | NUR ---
supper and HS snack ordered for pt.
--- NOTE | 2018-06-22 17:49 | NUR ---
informed pt's. RN that she is feeling like harming herself and wanting the med that stops those feelings. Also that she has urge to smoke and had a patch put on last noc.
--- NOTE | 2018-06-22 17:57 | NUR ---
RN REVIEWED MEDS AND ORDERS TO GET HER MEDS AND APPTS. FOR PT.
--- NOTE | 2018-06-22 18:36 | NUR ---
Pt had uneventful afternoon. Requested nicotine patch, orders received. However, pt is sleeping at this time so will ask shirt sorter to administer. Dr. Perry did see patient this afternoon. [facility] called with appointments; entered in computer. Will continue to monitor.
--- NOTE | 2018-06-22 19:05 | NUR ---
Report given to JULY Willard. Pt sleeping at this time; JULY Willard. states she will give the nicotine patch later when she is awake.
--- NOTE | 2018-06-22 20:50 | NUR ---
Patient in bed resting. Alert and oriented x 3. Shift assessment complete. Denies pain at this time. INT to right forarm and left AC without complications. Generalized scabs from bed bug bites. Offered fluids/accepted. Denies further needs at this time.
[2018-06-23] VITALS (32 sets, daily range): BP systolic 114–134; BP diastolic 59–88; PULSE 81–93; TEMP 97.9–98.6
--- NOTE | 2018-06-23 05:35 | NUR ---
Patient has rested intermittently through the night. Has requested snacks and fluids through the night, given. Continues to deny pain. Denies further needs at this time. Will report off to day shift.
[2018-06-23 06:28] LABS: BASO # 0.1 (0.0-0.2); BASO % 0.8 % (0.0-2.0); EOS # 0.4 (0.0-0.7); EOS % 5.9 % (0-4.0); GRAN % 47.6 % (42.2-75.2); HEMATOCRIT 39.6 % (37.0-47.0); HEMOGLOBIN 12.5 g/dl (12.5-16.0); LYMPH # 2.3 (1.2-3.4); LYMPH % 37.2 % (20.0-51.0); MEAN CELL VOLUME 88 fl (80.0-100.0); MEAN CORPUSCULAR HEMOGLOBIN 28 pg (27.0-31.0); MEAN CORPUSCULAR HGB CONC 32 g/dl (33.0-37.0); MEAN PLATELET VOLUME 10.3 fl (7.4-10.4); MONO # 0.5 (0.1-0.6); MONO % 7.5 % (1.7-9.3); PLATELET COUNT 237 K/mm3 (130-400); RED BLOOD COUNT 4.52 M/mm3 (4.10-5.30); REDCELL DISTRIBUTION WIDTH-CV 16.4 % (11.5-14.5)
[2018-06-23 06:38] LABS: CALCIUM 8.3 mg/dL (8.4-10.2); CREATININE, serum 0.89 mg/dL (0.52-1.25); MAGNESIUM 1.7 mg/dL (1.6-2.3); POTASSIUM 3.1 mmol/L (3.4-5.0)
--- NOTE | 2018-06-23 09:11 | NUR ---
Pt resting in bed, sleeping at this time. Sitter in place with Q15Min checks. Will continue to monitor.
--- NOTE | 2018-06-23 10:12 | NUR ---
Pt resting in bed with call light within reach. States she wants to leave as soon as she can, but of course wants a safe disposition. Waiting to hear from social work regarding apartment. Q15Min checks completed.
[2018-06-23] MEDS ORDERED: K-TAB20 PO (11:58)
--- NOTE | 2018-06-23 13:17 | NUR ---
Concepcion, at [facility], contacted JOCELYNN to inform that the patient was not approved at their apartment complex. JOCELYNN informed the patient. The patient's friend did bring the patient's belonging to the hospital. JOCELYNN then discussed the psychiatrist's recommendation of inpatient psych, if she is unable to move into the apartment. The patient reports that she would be agreeable to inpatient psych. JOCELYNN discussed options and faxed a referral to [facility], [facility], and [facility]. [facility] reports that the patient is too young for their facility. Barbara at [facility] reports that they can accept the patient. JOCELYNN informed the patient and she reports that she is not interested in going to [place]. She states that she has been to [facility] in the past and would prefer them. JOCELYNN contacted [facility] and they report that they are a crisis center and that the patient would have to come voluntarily. [facility] would then do an assessment to determine if the patient meets criteria to be there. JOCELYNN informed the patient. The patient reports that she has enough money to stay at the [place] [address] and would prefer to do that with out-patient follow up at [facility]. She states that she will be getting a call on from Public Housing, which will inform her of where she is at on the waiting list. JOCELYNN informed the clinical team and will continue to follow.
--- NOTE | 2018-06-23 15:05 | NUR ---
Summary note: Pt has worked with social work. Dr. Santamaria re-assessed patient and states that she is safe to go to the motel with follow up appointments scheduled with Kiara as documented in discharge. Pt states she feels safe to go to the motel for two days and will go to the homeless alf once her money runs out. She states she didn't want to go to the homeless alf, but states she may not have any other option anyway. States she feels safe to do so. Did re-inforce that if she has any increased suicidal thoughts or thoughts of harming herself, she should use her resources including [place] and the Emergency Department. Pt states she will. On admission, pt had pair of sweatpants and her debit card. These were removed from her room for suicide precautions. Unfortunately, they have been misplaced. Elba, Medicine And Health Service Manager, notified. Applications Support Specialist called, checking with laundry. Pt informed and states she has the number for the debit card so it is not a problem as she can get it replaced. All other belongings, including phone, wallet, canvas cutter hand, cane, and walker sent with patient. Patient also told social work that she has medications covered and does not need assistance with prescriptions. INTs removed. All questions answered in depth. SUpport given. Pt denies any more needs. Pt calls an uber and is discharged with belongings.
--- NOTE | 2018-06-23 15:47 | NUR ---
The patient was re-assessed by the hospitalist. The patient reports that she feels safe to return back to the [address] with outpatient appointments at [facility]. The patient is to discharge today, 06/23, with follow up appointments made at [facility]. Her first appointment is on , 06/25/18. The patient states that she will receive transportation to her appointments from her case management rn at [facility] or will utilize [employer] BELT MACHINE OPERATOR. The patient reports that she will have money to pay for the hotel until this and that she will then look at staying at the homeless skilled nursing. JOCELYNN provided the patient with the [facility] skilled nursing's contact information. [facility] was also provided to the patient. Medications were reviewed with the patient and she states that she has refills for all of them and that she is able to pick them up. The patient was advised to come back to the emergency department if she is having any suicidal thoughts. Transportation back to [place] [address] was provided by [employer]. JOCELYNN did make an APS report. Intake ID# [id number]
[2018-06-24 18:39] LABS: HELICOBACTER PYLORI STOOL AG Negative (Negative)
== END 2018-06-23 15:18 | disposition home or self-care (01) | DRG 641 ==
LOC: COL.ER 17:58 → MEDICAL 19:32
PROVIDERS: Emergency Medicine; Nurse Practitioner; Nurse Practitioner Family; ADMIT Internal Medicine
DX: E87.6 Hypokalemia (principal); R45.851 Suicidal ideations; Z68.43 Body mass index [BMI] 50.0-59.9, adult; E83.42 Hypomagnesemia; E66.01 Morbid (severe) obesity due to excess calories; I10 Essential (primary) hypertension; F31.9 Bipolar disorder, unspecified; F41.1 Generalized anxiety disorder; F60.3 Borderline personality disorder; F17.210 Nicotine dependence, cigarettes, uncomplicated; E78.5 Hyperlipidemia, unspecified; R19.7 Diarrhea, unspecified; Z23 Encounter for immunization
CPT/HCPCS: OP; 99239; G0378; J1644; J2405; J3475; J3480

== ENCOUNTER 2018-06-27 17:50 | Emergency (ER) | payer MEDICARE ==
[~2018-06-27] VITALS: Ht 167.6 cm; Wt 136.4 kg
[~2018-06-27 17:50] MED LIST changes: +K-DUR20 MEQ PO; +NEURONTIN300 MG/CAP PO; +REVIA 50MG TABL50 MG PO; +REXULTI2 MG PO
[2018-06-27 18:18] LABS: COLLECTION METHOD CLEAN CATCH
[2018-06-27 18:33] LABS: MUCOUS Present /lpf; PH 6 (5-8); URINE APPEARANCE Hazy; URINE BACTERIA Occasional /hpf; URINE BILIRUBIN Negative (NEGATIVE); URINE BLOOD Negative (NEGATIVE); URINE COLOR Yellow; URINE GLUCOSE Negative (NEGATIVE); URINE KETONE Negative (NEGATIVE); URINE LEUKOCYTE ESTERASE Negative (NEGATIVE); URINE NITRATE Negative (NEGATIVE); URINE PROTEIN(semi-quant) Negative (NEGATIVE); URINE UROBILINOGEN Negative (NEGATIVE)
[2018-06-27 18:35] LABS: TRICYCLIC ANTIDEPRESS URINE NEGATIVE
[2018-06-27 18:50] LABS: BASO # 0.1 (0.0-0.2); EOS # 0.4 (0.0-0.7); EOS % 4.7 % (0-4.0); GRAN # 4.2 (1.4-6.5); GRAN % 53.1 % (42.2-75.2); HEMATOCRIT 45.2 % (37.0-47.0); HEMOGLOBIN 14.5 g/dl (12.5-16.0); LYMPH # 2.7 (1.2-3.4); LYMPH % 34.4 % (20.0-51.0); MEAN CELL VOLUME 87 fl (80.0-100.0); MEAN CORPUSCULAR HEMOGLOBIN 28 pg (27.0-31.0); MEAN CORPUSCULAR HGB CONC 32 g/dl (33.0-37.0); MEAN PLATELET VOLUME 10.2 fl (7.4-10.4); MONO # 0.5 (0.1-0.6); MONO % 5.7 % (1.7-9.3); PLATELET COUNT 313 K/mm3 (130-400); RED BLOOD COUNT 5.21 M/mm3 (4.10-5.30); REDCELL DISTRIBUTION WIDTH-CV 16.9 % (11.5-14.5)
[2018-06-27 18:56] LABS: ALANINE AMINOTRANSFERASE 59 U/L (9-52); ALBUMIN 4.2 gm/dL (3.5-5.0); ALKALINE PHOSPHATASE 109 U/L (50-136); ANION GAP 8 mmol/L (7-16); AST,SGOT 76 U/L (15-37); BILIRUBIN,TOTAL 0.4 mg/dL (0.0-1.0); BLOOD UREA NITROGEN 6 mg/dL (7-17); CALCIUM 9.4 mg/dL (8.4-10.2); CARBON DIOXIDE 27 mmol/L (22-30); CHLORIDE 102 mmol/L (98-107); CREATININE, serum 0.86 mg/dL (0.52-1.25); GLUCOSE 99 mg/dL (74-106); POTASSIUM 4.2 mmol/L (3.4-5.0); SODIUM 138 mmol/L (137-145); TOTAL PROTEIN 8.2 gm/dL (6.4-8.2)
[2018-06-27 19:04] LABS: ACETAMINOPHEN < 10 ug/mL (10-30); ALCOHOL(ethanol),MEDICAL < 10 mg/dL; SALICYLATE < 1.0 mg/dL
[2018-06-28 10:05] VITALS: BP 141/80; PULSE 90; TEMP 97.7
== END 2018-06-28 10:06 | disposition home or self-care (01) ==
LOC: COL.ER 17:50
PROVIDERS: Nurse Practitioner
DX: R45.851 Suicidal ideations (principal); F32.9 Major depressive disorder, single episode, unspecified; I10 Essential (primary) hypertension; E03.9 Hypothyroidism, unspecified; F17.210 Nicotine dependence, cigarettes, uncomplicated; F43.10 Post-traumatic stress disorder, unspecified; F41.9 Anxiety disorder, unspecified; Z90.49 Acquired absence of other specified parts of digestive tract

== ENCOUNTER → 2018-07-13 | Outpatient (CLI) | payer MEDICARE | LOC: ZCOL.LAB 16:44 | DX: E87.6 Hypokalemia (principal); R20.0 Anesthesia of skin ==

== ENCOUNTER 2018-07-16 16:58 | Emergency (ER) | payer MEDICARE ==
[~2018-07-16] VITALS: Ht 167.6 cm; Wt 141.8 kg
[2018-07-16 17:01] VITALS: TEMP 98.9
[2018-07-16 17:28] LABS: BASO # 0.1 (0.0-0.2); EOS # 0.4 (0.0-0.7); EOS % 5.4 % (0-4.0); GRAN # 3.8 (1.4-6.5); GRAN % 52.4 % (42.2-75.2); HEMATOCRIT 41.7 % (37.0-47.0); HEMOGLOBIN 13.5 g/dl (12.5-16.0); LYMPH # 2.5 (1.2-3.4); LYMPH % 34.7 % (20.0-51.0); MEAN CELL VOLUME 88 fl (80.0-100.0); MEAN CORPUSCULAR HEMOGLOBIN 28 pg (27.0-31.0); MEAN CORPUSCULAR HGB CONC 32 g/dl (33.0-37.0); MEAN PLATELET VOLUME 9.8 fl (7.4-10.4); MONO # 0.4 (0.1-0.6); MONO % 5.5 % (1.7-9.3); PLATELET COUNT 277 K/mm3 (130-400); RED BLOOD COUNT 4.76 M/mm3 (4.10-5.30); REDCELL DISTRIBUTION WIDTH-CV 15.9 % (11.5-14.5)
[2018-07-16 17:40] LABS: COLLECTION METHOD CLEAN CATCH
[2018-07-16 17:47] LABS: ALANINE AMINOTRANSFERASE 60 U/L (9-52); ALBUMIN 4.1 gm/dL (3.5-5.0); ALKALINE PHOSPHATASE 108 U/L (50-136); ANION GAP 7 mmol/L (7-16); AST,SGOT 59 U/L (15-37); BILIRUBIN,TOTAL 0.3 mg/dL (0.0-1.0); BLOOD UREA NITROGEN 10 mg/dL (7-17); CALCIUM 9.3 mg/dL (8.4-10.2); CARBON DIOXIDE 26 mmol/L (22-30); CHLORIDE 104 mmol/L (98-107); CREATININE, serum 0.89 mg/dL (0.52-1.25); GLUCOSE 99 mg/dL (74-106); POTASSIUM 3.8 mmol/L (3.4-5.0); SODIUM 137 mmol/L (137-145); TOTAL PROTEIN 7.8 gm/dL (6.4-8.2)
[2018-07-16 17:48] LABS: ACETAMINOPHEN < 10 ug/mL (10-30); ALCOHOL(ethanol),MEDICAL < 10 mg/dL; SALICYLATE < 1.0 mg/dL
[2018-07-16 18:00] LABS: MUCOUS Present /lpf; PH 5 (5-8); SQUAMOUS EPITHELIAL 0-2 /hpf; URINE APPEARANCE Clear; URINE BACTERIA Rare /hpf; URINE BILIRUBIN Negative (NEGATIVE); URINE BLOOD Negative (NEGATIVE); URINE COLOR Yellow; URINE GLUCOSE Negative (NEGATIVE); URINE KETONE Negative (NEGATIVE); URINE LEUKOCYTE ESTERASE Negative (NEGATIVE); URINE NITRATE Negative (NEGATIVE); URINE PROTEIN(semi-quant) Negative (NEGATIVE); URINE RBC 0-2 /hpf; URINE UROBILINOGEN Negative (NEGATIVE)
[2018-07-16 18:09] LABS: TRICYCLIC ANTIDEPRESS URINE POSITIVE
[2018-07-16] MEDS ORDERED: SYNTHROID0.2 MG/TAB PO (18:33)
[2018-07-16] MEDS ORDERED: ZYPREXA ZYD10 MG/TAB PO (18:34)
[2018-07-16 21:33] VITALS: BP 163/95; PULSE 85
== END 2018-07-17 01:18 | disposition home or self-care (01) ==
LOC: COL.ER 16:58
PROVIDERS: Emergency Medicine
DX: R45.851 Suicidal ideations (principal); F32.9 Major depressive disorder, single episode, unspecified; F17.210 Nicotine dependence, cigarettes, uncomplicated

== ENCOUNTER → 2018-08-04 | Outpatient (CLI) | payer MEDICARE ==
[~2018-08-04] MED LIST changes: +ZYPREXA ZYD10 MG/TAB PO
[2018-08-04 17:04] LABS: BASO # 0.1 (0.0-0.2); BASO % 0.8 % (0.0-2.0); EOS # 0.3 (0.0-0.7); EOS % 3.4 % (0-4.0); GRAN # 5.3 (1.4-6.5); GRAN % 61.1 % (42.2-75.2); HEMATOCRIT 44.4 % (37.0-47.0); HEMOGLOBIN 14.2 g/dl (12.5-16.0); LYMPH # 2.4 (1.2-3.4); LYMPH % 27.7 % (20.0-51.0); MEAN CELL VOLUME 89 fl (80.0-100.0); MEAN CORPUSCULAR HEMOGLOBIN 29 pg (27.0-31.0); MEAN CORPUSCULAR HGB CONC 32 g/dl (33.0-37.0); MEAN PLATELET VOLUME 10.9 fl (7.4-10.4); MONO # 0.6 (0.1-0.6); MONO % 6.4 % (1.7-9.3); PLATELET COUNT 255 K/mm3 (130-400); RED BLOOD COUNT 4.97 M/mm3 (4.10-5.30); REDCELL DISTRIBUTION WIDTH-CV 16.6 % (11.5-14.5)
[2018-08-04 17:08] LABS: CALCIUM 9.4 mg/dL (8.4-10.2); CREATININE, serum 0.92 mg/dL (0.52-1.25); POTASSIUM 4.4 mmol/L (3.4-5.0)
[2018-08-04 17:39] LABS: THYROID STIMULATING HORMONE 18.1 uIU/mL (0.465-4.680)
== END ==
LOC: ZCOL.LAB 16:22
PROVIDERS: Family Medicine
DX: E03.9 Hypothyroidism, unspecified (principal); R42 Dizziness and giddiness

== ENCOUNTER 2018-10-12 13:59 | Emergency (ER) | payer MEDICARE ==
[~2018-10-12] VITALS: Ht 170.2 cm; Wt 145.5 kg
[2018-10-12 14:06] VITALS: BP 144/89; PULSE 100; TEMP 97.7
[2018-10-12] MEDS ORDERED: CEPHALEXIN500 M1 PO (14:28)
== END 2018-10-12 14:55 | disposition home or self-care (01) ==
LOC: COL.ER 13:59
DX: S91.301A Unspecified open wound, right foot, initial encounter (principal); X58.XXXA Exposure to other specified factors, initial encounter

== ENCOUNTER 2018-10-13 17:31 | Emergency (ER) | payer MEDICARE ==
[~2018-10-13] VITALS: Ht 167.6 cm; Wt 145.5 kg
[2018-10-13 17:42] VITALS: BP 133/59; PULSE 100; TEMP 99
[2018-10-13 18:34] LABS: BASO # 0.1 (0.0-0.2); BASO % 0.8 % (0.0-2.0); EOS # 0.3 (0.0-0.7); EOS % 3.3 % (0-4.0); GRAN # 5.2 (1.4-6.5); HEMATOCRIT 43.5 % (37.0-47.0); HEMOGLOBIN 14.3 g/dl (12.5-16.0); LYMPH # 2.9 (1.2-3.4); LYMPH % 32.2 % (20.0-51.0); MEAN CELL VOLUME 89 fl (80.0-100.0); MEAN CORPUSCULAR HEMOGLOBIN 29 pg (27.0-31.0); MEAN CORPUSCULAR HGB CONC 33 g/dl (33.0-37.0); MEAN PLATELET VOLUME 10.4 fl (7.4-10.4); MONO # 0.5 (0.1-0.6); MONO % 5.4 % (1.7-9.3); PLATELET COUNT 236 K/mm3 (130-400); RED BLOOD COUNT 4.91 M/mm3 (4.10-5.30); REDCELL DISTRIBUTION WIDTH-CV 14.6 % (11.5-14.5)
[2018-10-13 18:46] LABS: ACETAMINOPHEN < 10 ug/mL (10-30); ALANINE AMINOTRANSFERASE 47 U/L (9-52); ALBUMIN 4.4 gm/dL (3.5-5.0); ALCOHOL(ethanol),MEDICAL < 10 mg/dL; ALKALINE PHOSPHATASE 114 U/L (50-136); ANION GAP 8 mmol/L (7-16); AST,SGOT 45 U/L (15-37); BILIRUBIN,TOTAL 0.5 mg/dL (0.0-1.0); BLOOD UREA NITROGEN 12 mg/dL (7-17); CALCIUM 9.8 mg/dL (8.4-10.2); CARBON DIOXIDE 27 mmol/L (22-30); CHLORIDE 104 mmol/L (98-107); CREATININE, serum 1.01 (0.52-1.25); GLUCOSE 97 mg/dL (74-106); POTASSIUM 3.7 mmol/L (3.4-5.0); SALICYLATE < 1.0 mg/dL; SODIUM 139 mmol/L (137-145); TOTAL PROTEIN 8.5 gm/dL (6.4-8.2)
[2018-10-13 18:52] LABS: COLLECTION METHOD CLEAN CATCH
[2018-10-13 19:04] LABS: MUCOUS Present /lpf; PH 5 (5-8); URINE APPEARANCE Clear; URINE BACTERIA Many /hpf; URINE BILIRUBIN Negative (NEGATIVE); URINE BLOOD 1+ (NEGATIVE); URINE COLOR Yellow; URINE GLUCOSE Negative (NEGATIVE); URINE KETONE Negative (NEGATIVE); URINE LEUKOCYTE ESTERASE Negative (NEGATIVE); URINE NITRATE Negative (NEGATIVE); URINE PROTEIN(semi-quant) Negative (NEGATIVE); URINE UROBILINOGEN Negative (NEGATIVE)
[2018-10-13 19:10] LABS: TRICYCLIC ANTIDEPRESS URINE POSITIVE
== END 2018-10-13 20:47 | disposition home or self-care (01) ==
LOC: COL.ER 17:31
PROVIDERS: Nurse Practitioner
DX: R45.851 Suicidal ideations (principal); F32.9 Major depressive disorder, single episode, unspecified; J45.909 Unspecified asthma, uncomplicated; F20.9 Schizophrenia, unspecified; I10 Essential (primary) hypertension; F43.10 Post-traumatic stress disorder, unspecified; E03.9 Hypothyroidism, unspecified; F17.210 Nicotine dependence, cigarettes, uncomplicated

== ENCOUNTER 2018-10-20 17:15 | Emergency (ER) | payer MEDICARE, MEDICAID ==
[~2018-10-20] VITALS: Ht 167.6 cm; Wt 145.5 kg
[2018-10-20 17:30] VITALS: BP 142/87; TEMP 97.8
[2018-10-20 18:08] LABS: COLLECTION METHOD CLEAN CATCH
[2018-10-20 18:21] LABS: MUCOUS Present /lpf; PH 5 (5-8); URINE APPEARANCE Hazy; URINE BACTERIA Rare /hpf; URINE BILIRUBIN Negative (NEGATIVE); URINE BLOOD 3+ (NEGATIVE); URINE COLOR Yellow; URINE GLUCOSE Negative (NEGATIVE); URINE KETONE Negative (NEGATIVE); URINE LEUKOCYTE ESTERASE Negative (NEGATIVE); URINE NITRATE Negative (NEGATIVE); URINE PROTEIN(semi-quant) 1+ (NEGATIVE); URINE RBC >50 /hpf; URINE UROBILINOGEN Negative (NEGATIVE)
[2018-10-20 18:24] LABS: TRICYCLIC ANTIDEPRESS URINE POSITIVE
[2018-10-20 18:26] LABS: BASO # 0.1 (0.0-0.2); BASO % 0.8 % (0.0-2.0); EOS # 0.3 (0.0-0.7); EOS % 3.1 % (0-4.0); GRAN # 5.7 (1.4-6.5); GRAN % 62.8 % (42.2-75.2); HEMATOCRIT 44.3 % (37.0-47.0); HEMOGLOBIN 14.2 g/dl (12.5-16.0); LYMPH # 2.4 (1.2-3.4); LYMPH % 26.8 % (20.0-51.0); MEAN CELL VOLUME 89 fl (80.0-100.0); MEAN CORPUSCULAR HEMOGLOBIN 29 pg (27.0-31.0); MEAN CORPUSCULAR HGB CONC 32 g/dl (33.0-37.0); MEAN PLATELET VOLUME 10.4 fl (7.4-10.4); MONO # 0.6 (0.1-0.6); PLATELET COUNT 264 K/mm3 (130-400); RED BLOOD COUNT 4.96 M/mm3 (4.10-5.30); REDCELL DISTRIBUTION WIDTH-CV 14.2 % (11.5-14.5)
[2018-10-20 18:35] LABS: ALANINE AMINOTRANSFERASE 35 U/L (9-52); ALBUMIN 4.3 gm/dL (3.5-5.0); ALKALINE PHOSPHATASE 109 U/L (50-136); ANION GAP 10 mmol/L (7-16); AST,SGOT 42 U/L (15-37); BILIRUBIN,TOTAL 0.2 mg/dL (0.0-1.0); BLOOD UREA NITROGEN 15 mg/dL (7-17); CALCIUM 9.9 mg/dL (8.4-10.2); CARBON DIOXIDE 30 mmol/L (22-30); CHLORIDE 102 mmol/L (98-107); CREATININE, serum 0.88 (0.52-1.25); GLUCOSE 86 mg/dL (74-106); SODIUM 142 mmol/L (137-145); TOTAL PROTEIN 8.4 gm/dL (6.4-8.2)
[2018-10-20 18:39] LABS: ACETAMINOPHEN < 10 ug/mL (10-30); ALCOHOL(ethanol),MEDICAL < 10 mg/dL; SALICYLATE < 1.0 mg/dL
[2018-10-20 21:49] VITALS: PULSE 80
== END 2018-10-20 21:49 | disposition home or self-care (01) ==
LOC: COL.ER 17:15
PROVIDERS: Physician Assistant
DX: F32.9 Major depressive disorder, single episode, unspecified (principal); R45.851 Suicidal ideations

== ENCOUNTER 2018-11-11 22:50 | Emergency (ER) | payer MEDICARE, MEDICAID ==
[~2018-11-11] VITALS: Ht 170.2 cm; Wt 136.4 kg
[2018-11-11 22:52] VITALS: TEMP 97.3
[2018-11-12 00:36] VITALS: BP 146/109; PULSE 78
== END 2018-11-12 00:35 | disposition home or self-care (01) ==
LOC: COL.ER 22:50
DX: S60.211A Contusion of right wrist, initial encounter (principal); F31.9 Bipolar disorder, unspecified; F60.3 Borderline personality disorder; W01.0XXA Fall on same level from slipping, tripping and stumbling without subsequent striking against object, initial encounter; Y92.009 Unspecified place in unspecified non-institutional (private) residence as the place of occurrence of the external cause

== ENCOUNTER 2018-11-30 14:03 | Emergency (ER) | payer MEDICARE, MEDICAID ==
[~2018-11-30] VITALS: Ht 167.6 cm; Wt 136.4 kg
[2018-11-30 14:10] VITALS: TEMP 99
[2018-11-30 14:48] LABS: BASO # 0.1 (0.0-0.2); BASO % 0.7 % (0.0-2.0); EOS # 0.2 (0.0-0.7); GRAN # 7.8 (1.4-6.5); GRAN % 68.1 % (42.2-75.2); HEMATOCRIT 44.6 % (37.0-47.0); HEMOGLOBIN 14.6 g/dl (12.5-16.0); LYMPH # 2.6 (1.2-3.4); MEAN CELL VOLUME 87 fl (80.0-100.0); MEAN CORPUSCULAR HEMOGLOBIN 29 pg (27.0-31.0); MEAN CORPUSCULAR HGB CONC 33 g/dl (33.0-37.0); MEAN PLATELET VOLUME 9.6 fl (7.4-10.4); MONO # 0.6 (0.1-0.6); MONO % 5.5 % (1.7-9.3); PLATELET COUNT 296 K/mm3 (130-400); RED BLOOD COUNT 5.13 M/mm3 (4.10-5.30); REDCELL DISTRIBUTION WIDTH-CV 14.6 % (11.5-14.5)
[2018-11-30 14:57] LABS: COLLECTION METHOD CLEAN CATCH
[2018-11-30 14:58] LABS: ALANINE AMINOTRANSFERASE 26 U/L (9-52); ALBUMIN 4.4 gm/dL (3.5-5.0); ALKALINE PHOSPHATASE 118 U/L (50-136); ANION GAP 11 mmol/L (7-16); AST,SGOT 28 U/L (15-37); BILIRUBIN,TOTAL 0.4 mg/dL (0.0-1.0); BLOOD UREA NITROGEN 14 mg/dL (7-17); CALCIUM 9.5 mg/dL (8.4-10.2); CARBON DIOXIDE 27 mmol/L (22-30); CHLORIDE 104 mmol/L (98-107); CREATININE, serum 1.02 (0.52-1.25); GLUCOSE 96 mg/dL (74-106); POTASSIUM 3.8 mmol/L (3.4-5.0); SODIUM 143 mmol/L (137-145); TOTAL PROTEIN 8.6 gm/dL (6.4-8.2)
[2018-11-30 15:02] LABS: ACETAMINOPHEN < 10 ug/mL (10-30); ALCOHOL(ethanol),MEDICAL < 10 mg/dL; SALICYLATE < 1.0 mg/dL
[2018-11-30 15:09] LABS: MUCOUS Present /lpf; PH 5 (5-8); SQUAMOUS EPITHELIAL 0-2 /hpf; URINE APPEARANCE Cloudy; URINE BACTERIA Occasional /hpf; URINE BILIRUBIN Negative (NEGATIVE); URINE BLOOD 2+ (NEGATIVE); URINE COLOR Yellow; URINE GLUCOSE Negative (NEGATIVE); URINE KETONE Negative (NEGATIVE); URINE LEUKOCYTE ESTERASE 3+ (NEGATIVE); URINE NITRATE Positive (NEGATIVE); URINE PROTEIN(semi-quant) 1+ (NEGATIVE); URINE UROBILINOGEN Negative (NEGATIVE)
[2018-11-30 15:11] LABS: TRICYCLIC ANTIDEPRESS URINE NEGATIVE
[2018-11-30] MEDS ORDERED: BACTRIM DS 8001 TAB PO (15:19)
[2018-11-30 22:00] VITALS: BP 136/91; PULSE 84
== END 2018-11-30 22:00 | disposition short-term general hospital (02) ==
LOC: COL.ER 14:03
PROVIDERS: Physician Assistant
DX: F31.9 Bipolar disorder, unspecified (principal); R45.851 Suicidal ideations; F17.210 Nicotine dependence, cigarettes, uncomplicated

== ENCOUNTER → 2018-12-16 | Outpatient (CLI) | payer MEDICARE, MEDICAID ==
[~2018-12-16] MED LIST changes: +BACTRIM DS 8001 TAB PO
[2018-12-16 19:39] LABS: THYROID STIMULATING HORMONE 5.47 uIU/mL (0.465-4.680)
== END ==
LOC: ZCOL.LAB 18:00
PROVIDERS: Family Medicine
DX: E03.9 Hypothyroidism, unspecified (principal)

== ENCOUNTER 2018-12-22 12:34 | Emergency (ER) | payer MEDICARE, MEDICAID ==
[~2018-12-22] VITALS: Ht 167.6 cm; Wt 140.9 kg
[2018-12-22 13:18] LABS: BASO # 0.1 (0.0-0.2); BASO % 0.7 % (0.0-2.0); EOS # 0.2 (0.0-0.7); EOS % 2.3 % (0-4.0); GRAN # 6.5 (1.4-6.5); GRAN % 63.1 % (42.2-75.2); HEMATOCRIT 45.8 % (37.0-47.0); HEMOGLOBIN 14.8 g/dl (12.5-16.0); LYMPH # 2.9 (1.2-3.4); LYMPH % 28.2 % (20.0-51.0); MEAN CELL VOLUME 88 fl (80.0-100.0); MEAN CORPUSCULAR HEMOGLOBIN 28 pg (27.0-31.0); MEAN CORPUSCULAR HGB CONC 32 g/dl (33.0-37.0); MEAN PLATELET VOLUME 9.8 fl (7.4-10.4); MONO # 0.6 (0.1-0.6); MONO % 5.4 % (1.7-9.3); PLATELET COUNT 257 K/mm3 (130-400); RED BLOOD COUNT 5.22 M/mm3 (4.10-5.30); REDCELL DISTRIBUTION WIDTH-CV 14.6 % (11.5-14.5)
[2018-12-22 13:31] LABS: ACETAMINOPHEN < 10 ug/mL (10-30); ALANINE AMINOTRANSFERASE 33 U/L (9-52); ALBUMIN 4.3 gm/dL (3.5-5.0); ALCOHOL(ethanol),MEDICAL < 10 mg/dL; ALKALINE PHOSPHATASE 113 U/L (50-136); ANION GAP 11 mmol/L (7-16); AST,SGOT 38 U/L (15-37); BILIRUBIN,TOTAL 0.5 mg/dL (0.0-1.0); BLOOD UREA NITROGEN 7 mg/dL (7-17); CARBON DIOXIDE 28 mmol/L (22-30); CHLORIDE 102 mmol/L (98-107); GLUCOSE 86 mg/dL (74-106); POTASSIUM 3.8 mmol/L (3.4-5.0); SALICYLATE < 1.0 mg/dL; SODIUM 141 mmol/L (137-145); TOTAL PROTEIN 8.4 gm/dL (6.4-8.2)
[2018-12-22 14:05] LABS: COLLECTION METHOD CLEAN CATCH
[2018-12-22 14:12] LABS: PH 5 (5-8); SQUAMOUS EPITHELIAL None Seen /hpf; URINE APPEARANCE Clear; URINE BACTERIA Rare /hpf; URINE BILIRUBIN Negative (NEGATIVE); URINE BLOOD 1+ (NEGATIVE); URINE COLOR Yellow; URINE GLUCOSE Negative (NEGATIVE); URINE KETONE Negative (NEGATIVE); URINE LEUKOCYTE ESTERASE Negative (NEGATIVE); URINE NITRATE Negative (NEGATIVE); URINE PROTEIN(semi-quant) Negative (NEGATIVE); URINE RBC 0-2 /hpf; URINE UROBILINOGEN Negative (NEGATIVE)
[2018-12-22 14:20] LABS: TRICYCLIC ANTIDEPRESS URINE NEGATIVE
[2018-12-22 14:52] VITALS: TEMP 98.9
[2018-12-23 03:53] VITALS: BP 151/81; PULSE 60
== END 2018-12-23 03:54 ==
LOC: COL.ER 12:34
PROVIDERS: Emergency Medicine
DX: R45.851 Suicidal ideations (principal); F43.10 Post-traumatic stress disorder, unspecified; F31.9 Bipolar disorder, unspecified; F17.210 Nicotine dependence, cigarettes, uncomplicated; Z90.49 Acquired absence of other specified parts of digestive tract

== ENCOUNTER 2018-12-29 16:39 | Emergency (ER) | payer MEDICARE, MEDICAID ==
[~2018-12-29] VITALS: Ht 167.6 cm; Wt 140.9 kg
[2018-12-29 16:49] VITALS: BP 136/77; PULSE 98; TEMP 98
[2018-12-29 17:15] LABS: COLLECTION METHOD CLEAN CATCH
[2018-12-29 17:20] LABS: MUCOUS Present /lpf; PH 5 (5-8); SQUAMOUS EPITHELIAL 0-2 /hpf; URINE APPEARANCE Hazy; URINE BACTERIA Occasional /hpf; URINE BILIRUBIN Negative (NEGATIVE); URINE BLOOD 1+ (NEGATIVE); URINE COLOR Yellow; URINE GLUCOSE Negative (NEGATIVE); URINE KETONE Negative (NEGATIVE); URINE LEUKOCYTE ESTERASE Trace (NEGATIVE); URINE NITRATE Positive (NEGATIVE); URINE PROTEIN(semi-quant) 1+ (NEGATIVE); URINE UROBILINOGEN Negative (NEGATIVE)
[2018-12-29 17:27] LABS: TRICYCLIC ANTIDEPRESS URINE NEGATIVE
[2018-12-29] MEDS ORDERED: VALTREX 50500 MG/TAB PO (17:47)
[2018-12-29 17:50] LABS: BASO # 0.1 (0.0-0.2); BASO % 0.6 % (0.0-2.0); EOS # 0.2 (0.0-0.7); EOS % 1.9 % (0-4.0); GRAN # 7.8 (1.4-6.5); GRAN % 65.8 % (42.2-75.2); HEMATOCRIT 45.7 % (37.0-47.0); HEMOGLOBIN 15.3 g/dl (12.5-16.0); LYMPH % 25.5 % (20.0-51.0); MEAN CELL VOLUME 86 fl (80.0-100.0); MEAN CORPUSCULAR HEMOGLOBIN 29 pg (27.0-31.0); MEAN CORPUSCULAR HGB CONC 34 g/dl (33.0-37.0); MEAN PLATELET VOLUME 10.3 fl (7.4-10.4); MONO # 0.7 (0.1-0.6); MONO % 5.6 % (1.7-9.3); PLATELET COUNT 284 K/mm3 (130-400); RED BLOOD COUNT 5.31 M/mm3 (4.10-5.30); REDCELL DISTRIBUTION WIDTH-CV 14.8 % (11.5-14.5)
[2018-12-29 18:05] LABS: ALANINE AMINOTRANSFERASE 35 U/L (9-52); ALBUMIN 4.5 gm/dL (3.5-5.0); ALKALINE PHOSPHATASE 115 U/L (50-136); ANION GAP 13 mmol/L (7-16); AST,SGOT 47 U/L (15-37); BILIRUBIN,TOTAL 0.6 mg/dL (0.0-1.0); BLOOD UREA NITROGEN 12 mg/dL (7-17); CALCIUM 9.6 mg/dL (8.4-10.2); CARBON DIOXIDE 26 mmol/L (22-30); CHLORIDE 103 mmol/L (98-107); CREATININE, serum 0.87 (0.52-1.25); GLUCOSE 109 mg/dL (74-106); POTASSIUM 3.9 mmol/L (3.4-5.0); SODIUM 142 mmol/L (137-145); TOTAL PROTEIN 8.6 gm/dL (6.4-8.2)
[2018-12-29 18:12] LABS: ACETAMINOPHEN < 10 ug/mL (10-30); ALCOHOL(ethanol),MEDICAL < 10 mg/dL; SALICYLATE < 1.0 mg/dL
== END 2018-12-29 22:35 ==
LOC: COL.ER 16:39
PROVIDERS: Physician Assistant
DX: R45.851 Suicidal ideations (principal); F41.9 Anxiety disorder, unspecified; F32.9 Major depressive disorder, single episode, unspecified; N39.0 Urinary tract infection, site not specified; F17.290 Nicotine dependence, other tobacco product, uncomplicated

== ENCOUNTER → 2019-02-28 | Emergency (ER) | payer MEDICARE, MEDICAID ==
[~2019-02-28] MED LIST changes: +DESYREL DIVIDO300 MG PO; +DOXYCYCLINE HY100 MG PO; +VALTREX 50500 MG/TAB PO
== END ==
LOC: COL.ER 12:51
DX: Z72.89 Other problems related to lifestyle (principal)

== ENCOUNTER 2019-03-01 23:22 | Emergency (ER) | payer MEDICARE, MEDICAID ==
[~2019-03-01] VITALS: Wt 140.5 kg
[~2019-03-01 23:22] MED LIST changes: -DESYREL DIVIDO300 MG PO; -DOXYCYCLINE HY100 MG PO
[2019-03-01 23:52] VITALS: BP 179/90; TEMP 98.1
[2019-03-02] MEDS ORDERED: DOXYCYCLINE HY100 MG PO (01:22)
[2019-03-02 01:38] VITALS: PULSE 86
[2019-03-02] MEDS ORDERED: DESYREL DIVIDO300 MG PO (17:29)
[2019-03-02] MEDS ORDERED: ATARAX50 MG PO (17:29)
[2019-03-02] MEDS ORDERED: CEPHALEXIN500 M1 PO (19:31)
== END 2019-03-02 01:41 | disposition home or self-care (01) ==
LOC: COL.ER 23:22
DX: L03.115 Cellulitis of right lower limb (principal); R60.0 Localized edema; E66.9 Obesity, unspecified; F60.3 Borderline personality disorder; F31.9 Bipolar disorder, unspecified; F43.10 Post-traumatic stress disorder, unspecified; F17.210 Nicotine dependence, cigarettes, uncomplicated; Z90.89 Acquired absence of other organs

== ENCOUNTER 2019-03-02 17:05 | Emergency (ER) | payer MEDICARE, MEDICAID ==
[~2019-03-02] VITALS: Ht 160 cm; Wt 140.5 kg
[~2019-03-02 17:05] MED LIST changes: +DOXYCYCLINE HY100 MG PO
[2019-03-02] MEDS ORDERED: ATARAX50 MG PO (17:29)
[2019-03-02] MEDS ORDERED: DESYREL DIVIDO300 MG PO (17:29)
[2019-03-02 18:17] LABS: BASO # 0.1 (0.0-0.2); BASO % 0.5 % (0.0-2.0); EOS # 0.4 (0.0-0.7); EOS % 3.4 % (0-4.0); GRAN # 7.4 (1.4-6.5); GRAN % 61.4 % (42.2-75.2); HEMATOCRIT 41.5 % (37.0-47.0); HEMOGLOBIN 13.6 g/dl (12.5-16.0); LYMPH # 3.3 (1.2-3.4); LYMPH % 27.7 % (20.0-51.0); MEAN CELL VOLUME 87 fl (80.0-100.0); MEAN CORPUSCULAR HEMOGLOBIN 29 pg (27.0-31.0); MEAN CORPUSCULAR HGB CONC 33 g/dl (33.0-37.0); MEAN PLATELET VOLUME 10.2 fl (7.4-10.4); MONO # 0.8 (0.1-0.6); MONO % 6.4 % (1.7-9.3); PLATELET COUNT 247 K/mm3 (130-400); RED BLOOD COUNT 4.78 M/mm3 (4.10-5.30); REDCELL DISTRIBUTION WIDTH-CV 15.2 % (11.5-14.5)
[2019-03-02 18:17] LABS: TRICYCLIC ANTIDEPRESS URINE NEGATIVE
[2019-03-02 18:26] LABS: ALANINE AMINOTRANSFERASE 30 U/L (9-52); ALKALINE PHOSPHATASE 104 U/L (50-136); ANION GAP 8 mmol/L (7-16); AST,SGOT 29 U/L (15-37); BILIRUBIN,TOTAL 0.3 mg/dL (0.0-1.0); BLOOD UREA NITROGEN 13 mg/dL (7-17); CALCIUM 9.5 mg/dL (8.4-10.2); CARBON DIOXIDE 26 mmol/L (22-30); CHLORIDE 104 mmol/L (98-107); CREATININE, serum 0.79 (0.52-1.25); GLUCOSE 91 mg/dL (74-106); POTASSIUM 3.9 mmol/L (3.4-5.0); SODIUM 139 mmol/L (137-145); TOTAL PROTEIN 7.5 gm/dL (6.4-8.2)
[2019-03-02 18:30] LABS: ACETAMINOPHEN < 10 ug/mL (10-30); ALCOHOL(ethanol),MEDICAL < 10 mg/dL; SALICYLATE < 1.0 mg/dL
[2019-03-02] MEDS ORDERED: CEPHALEXIN500 M1 PO (19:31)
[2019-03-02 19:40] VITALS: BP 118/82; PULSE 93; TEMP 98.6
== END 2019-03-02 19:45 | disposition home or self-care (01) ==
LOC: COL.ER 17:05
PROVIDERS: Emergency Medicine
DX: R45.851 Suicidal ideations (principal); Z59.0 Homelessness

== ENCOUNTER 2019-03-09 13:36 | Emergency (ER) | payer MEDICARE, MEDICAID ==
[~2019-03-09] VITALS: Ht 167.6 cm; Wt 146.8 kg
[~2019-03-09 13:36] MED LIST changes: +DESYREL DIVIDO300 MG PO
[2019-03-09 13:48] LABS: COLLECTION METHOD CLEAN CATCH
[2019-03-09 13:56] LABS: MUCOUS Present /lpf; PH 5 (5-8); URINE APPEARANCE Hazy; URINE BACTERIA None Seen /hpf; URINE BILIRUBIN Negative (NEGATIVE); URINE BLOOD 1+ (NEGATIVE); URINE COLOR Yellow; URINE GLUCOSE Negative (NEGATIVE); URINE KETONE Negative (NEGATIVE); URINE LEUKOCYTE ESTERASE Negative (NEGATIVE); URINE NITRATE Negative (NEGATIVE); URINE PROTEIN(semi-quant) 1+ (NEGATIVE); URINE UROBILINOGEN Negative (NEGATIVE)
[2019-03-09 13:59] VITALS: TEMP 98.4
[2019-03-09 14:10] LABS: TRICYCLIC ANTIDEPRESS URINE NEGATIVE
[2019-03-09 14:17] LABS: BASO # 0.1 (0.0-0.2); BASO % 0.7 % (0.0-2.0); EOS # 0.4 (0.0-0.7); EOS % 2.7 % (0-4.0); GRAN # 8.7 (1.4-6.5); GRAN % 66.7 % (42.2-75.2); HEMATOCRIT 46.3 % (37.0-47.0); HEMOGLOBIN 15.3 g/dl (12.5-16.0); LYMPH # 3.1 (1.2-3.4); LYMPH % 23.9 % (20.0-51.0); MEAN CELL VOLUME 87 fl (80.0-100.0); MEAN CORPUSCULAR HEMOGLOBIN 29 pg (27.0-31.0); MEAN CORPUSCULAR HGB CONC 33 g/dl (33.0-37.0); MEAN PLATELET VOLUME 10.1 fl (7.4-10.4); MONO # 0.7 (0.1-0.6); MONO % 5.5 % (1.7-9.3); PLATELET COUNT 306 K/mm3 (130-400); RED BLOOD COUNT 5.32 M/mm3 (4.10-5.30); REDCELL DISTRIBUTION WIDTH-CV 15.2 % (11.5-14.5)
[2019-03-09 14:36] LABS: ALANINE AMINOTRANSFERASE 32 U/L (9-52); ALBUMIN 4.3 gm/dL (3.5-5.0); ALKALINE PHOSPHATASE 100 U/L (50-136); ANION GAP 10 mmol/L (7-16); AST,SGOT 35 U/L (15-37); BILIRUBIN,TOTAL 0.4 mg/dL (0.0-1.0); BLOOD UREA NITROGEN 11 mg/dL (7-17); CALCIUM 9.6 mg/dL (8.4-10.2); CARBON DIOXIDE 28 mmol/L (22-30); CHLORIDE 101 mmol/L (98-107); CREATININE, serum 0.85 (0.52-1.25); GLUCOSE 120 mg/dL (74-106); MAGNESIUM 1.8 mg/dL (1.6-2.3); PHOSPHOROUS 3.9 mg/dL (2.5-4.5); POTASSIUM 3.8 mmol/L (3.4-5.0); SODIUM 139 mmol/L (137-145)
[2019-03-09 14:39] LABS: ACETAMINOPHEN < 10 ug/mL (10-30); ALCOHOL(ethanol),MEDICAL < 10 mg/dL
[2019-03-09 14:51] LABS: TROPONIN-I < 0.012 ng/mL (0.000-0.035)
--- NOTE | 2019-03-09 15:20 | NUR ---
RUDI zhu responded to the ED for a psychiatric social worker referral. RUDI zhu met with the patient to discuss needs. The patient reports she is moving to [facility] from [place] this week. She reports all her services are in [place] and she needs to live here. The patient reports she receives SNAP benefits. RUDI zhu offered the [facility] resource guide. Patient declined. Patient reports she has a book with all the resouces in [place]. RUDI zhu contacted the patient's payee, Donna Pressley x 2 to inquire about funds for the patient. Patient spoke to Donna. Donna will add funds to the patient's account. Patient will have to go to [employer] before 6pm to collect funds. RUDI zhu provided a taxi voucher to the patient's nurse. RUDI zhu also provided [place] day pass to patient. The patient was part of the [facility] Care Team in the past. RUDI zhu discussed this with the patient. The patient was agreeable to signing a new release of information, a copy was provided to the patient. RUDI zhu to turn in new release at the next CCT meeting. Kiara was called to meet with the patient due to the nature of her ED visit. RUDI zhu collaborated the above information with the patient's nurse. No other needs identified at this time.
[2019-03-09 15:54] VITALS: BP 140/89; PULSE 103
== END 2019-03-09 15:54 | disposition home or self-care (01) ==
LOC: COL.ER 13:36
PROVIDERS: Emergency Medicine
DX: F32.9 Major depressive disorder, single episode, unspecified (principal); J40 Bronchitis, not specified as acute or chronic; E66.9 Obesity, unspecified; I10 Essential (primary) hypertension; F43.10 Post-traumatic stress disorder, unspecified; Z68.43 Body mass index [BMI] 50.0-59.9, adult; Z90.89 Acquired absence of other organs

== ENCOUNTER 2019-04-01 13:06 | Emergency (ER) | payer MEDICARE, MEDICAID ==
[~2019-04-01] VITALS: Ht 167.6 cm; Wt 145.5 kg
[2019-04-01 13:14] VITALS: TEMP 98.8
[2019-04-01 13:44] LABS: COLLECTION METHOD CLEAN CATCH
[2019-04-01 13:52] LABS: MUCOUS Present /lpf; PH 5 (5-8); URINE APPEARANCE Hazy; URINE BACTERIA Rare /hpf; URINE BILIRUBIN Negative (NEGATIVE); URINE BLOOD 1+ (NEGATIVE); URINE COLOR Yellow; URINE GLUCOSE Negative (NEGATIVE); URINE KETONE Negative (NEGATIVE); URINE LEUKOCYTE ESTERASE Negative (NEGATIVE); URINE NITRATE Negative (NEGATIVE); URINE PROTEIN(semi-quant) Negative (NEGATIVE); URINE UROBILINOGEN Negative (NEGATIVE)
[2019-04-01 14:01] LABS: TRICYCLIC ANTIDEPRESS URINE NEGATIVE
[2019-04-01 14:23] LABS: BASO # 0.1 (0.0-0.2); BASO % 0.5 % (0.0-2.0); EOS # 0.2 (0.0-0.7); GRAN % 63.4 % (42.2-75.2); HEMATOCRIT 44.3 % (37.0-47.0); HEMOGLOBIN 14.6 g/dl (12.5-16.0); LYMPH # 3.1 (1.2-3.4); LYMPH % 27.9 % (20.0-51.0); MEAN CELL VOLUME 88 fl (80.0-100.0); MEAN CORPUSCULAR HEMOGLOBIN 29 pg (27.0-31.0); MEAN CORPUSCULAR HGB CONC 33 g/dl (33.0-37.0); MEAN PLATELET VOLUME 10.3 fl (7.4-10.4); MONO # 0.6 (0.1-0.6); MONO % 5.6 % (1.7-9.3); PLATELET COUNT 244 K/mm3 (130-400); RED BLOOD COUNT 5.05 M/mm3 (4.10-5.30); REDCELL DISTRIBUTION WIDTH-CV 14.7 % (11.5-14.5)
[2019-04-01 14:33] LABS: ALANINE AMINOTRANSFERASE 31 U/L (9-52); ALBUMIN 4.2 gm/dL (3.5-5.0); ALKALINE PHOSPHATASE 116 U/L (50-136); ANION GAP 10 mmol/L (7-16); AST,SGOT 28 U/L (15-37); BILIRUBIN,TOTAL 0.2 mg/dL (0.0-1.0); BLOOD UREA NITROGEN 11 mg/dL (7-17); CALCIUM 9.1 mg/dL (8.4-10.2); CARBON DIOXIDE 25 mmol/L (22-30); CHLORIDE 103 mmol/L (98-107); CREATININE, serum 0.64 (0.52-1.25); GLUCOSE 94 mg/dL (74-106); POTASSIUM 3.9 mmol/L (3.4-5.0); SODIUM 138 mmol/L (137-145); TOTAL PROTEIN 7.7 gm/dL (6.4-8.2)
[2019-04-01 14:39] LABS: ACETAMINOPHEN < 10 ug/mL (10-30); ALCOHOL(ethanol),MEDICAL < 10 mg/dL; SALICYLATE < 1.0 mg/dL
[2019-04-01] MEDS ORDERED: REXULTI3 MG PO (15:00)
[2019-04-01] MEDS ORDERED: NEURONTIN100 MG/CAP PO (15:03)
[2019-04-01] MEDS ORDERED: ATARAX50 MG PO (15:04)
[2019-04-01] MEDS ORDERED: LEVOXYL0.025 MG PO (15:06)
[2019-04-01] MEDS ORDERED: K-TAB20 PO (15:09)
[2019-04-01] MEDS ORDERED: DESYREL 100MG100 MG PO (15:10)
[2019-04-01] MEDS ORDERED: CYMBALTA 30MG30 MG PO (15:11)
[2019-04-01] MEDS ORDERED: CLARITIN 1010 MG/TAB PO (15:12)
[2019-04-01] MEDS ORDERED: HALDOL 5MG T5 MG/TAB PO (15:13)
[2019-04-01 20:15] VITALS: BP 153/73; PULSE 82
== END 2019-04-01 20:15 ==
LOC: COL.ER 13:06
PROVIDERS: Emergency Medicine
DX: R45.851 Suicidal ideations (principal); F17.210 Nicotine dependence, cigarettes, uncomplicated; Z98.51 Tubal ligation status

== ENCOUNTER 2019-04-10 21:00 | Emergency (ER) | payer MEDICARE, MEDICAID ==
[~2019-04-10] VITALS: Ht 170.2 cm; Wt 145.5 kg
[~2019-04-10 21:00] MED LIST changes: +CLARITIN 1010 MG/TAB PO; +CYMBALTA 30MG30 MG PO; +LEVOXYL0.025 MG PO; +NEURONTIN100 MG/CAP PO; +REXULTI3 MG PO
[2019-04-10 21:13] VITALS: BP 135/62; TEMP 98.7
[2019-04-10 21:36] LABS: COLLECTION METHOD CLEAN CATCH
[2019-04-10 21:45] LABS: MUCOUS Present /lpf; PH 5 (5-8); URINE APPEARANCE Cloudy; URINE BACTERIA Occasional /hpf; URINE BILIRUBIN Negative (NEGATIVE); URINE BLOOD 3+ (NEGATIVE); URINE COLOR Yellow; URINE GLUCOSE Negative (NEGATIVE); URINE KETONE Negative (NEGATIVE); URINE LEUKOCYTE ESTERASE Negative (NEGATIVE); URINE NITRATE Negative (NEGATIVE); URINE PROTEIN(semi-quant) Negative (NEGATIVE); URINE RBC 20-50 /hpf; URINE UROBILINOGEN Negative (NEGATIVE)
[2019-04-10 21:57] LABS: TRICYCLIC ANTIDEPRESS URINE NEGATIVE
[2019-04-10 22:03] LABS: BASO # 0.1 (0.0-0.2); BASO % 0.6 % (0.0-2.0); EOS # 0.4 (0.0-0.7); EOS % 3.4 % (0-4.0); GRAN # 5.7 (1.4-6.5); GRAN % 53.7 % (42.2-75.2); HEMATOCRIT 44.7 % (37.0-47.0); HEMOGLOBIN 14.5 g/dl (12.5-16.0); LYMPH # 3.8 (1.2-3.4); LYMPH % 35.9 % (20.0-51.0); MEAN CELL VOLUME 89 fl (80.0-100.0); MEAN CORPUSCULAR HEMOGLOBIN 29 pg (27.0-31.0); MEAN CORPUSCULAR HGB CONC 32 g/dl (33.0-37.0); MEAN PLATELET VOLUME 10.3 fl (7.4-10.4); MONO # 0.6 (0.1-0.6); PLATELET COUNT 277 K/mm3 (130-400); RED BLOOD COUNT 5.04 M/mm3 (4.10-5.30); REDCELL DISTRIBUTION WIDTH-CV 14.8 % (11.5-14.5)
[2019-04-10 22:25] LABS: ALANINE AMINOTRANSFERASE 39 U/L (9-52); ALBUMIN 4.1 gm/dL (3.5-5.0); ALKALINE PHOSPHATASE 125 U/L (50-136); ANION GAP 7 mmol/L (7-16); AST,SGOT 30 U/L (15-37); BILIRUBIN,TOTAL 0.2 mg/dL (0.0-1.0); BLOOD UREA NITROGEN 10 mg/dL (7-17); CALCIUM 9.3 mg/dL (8.4-10.2); CARBON DIOXIDE 28 mmol/L (22-30); CHLORIDE 103 mmol/L (98-107); CREATININE, serum 0.94 (0.52-1.25); GLUCOSE 91 mg/dL (74-106); POTASSIUM 4.1 mmol/L (3.4-5.0); SODIUM 138 mmol/L (137-145); TOTAL PROTEIN 7.7 gm/dL (6.4-8.2)
[2019-04-10 22:26] LABS: ACETAMINOPHEN < 10 ug/mL (10-30); ALCOHOL(ethanol),MEDICAL < 10 mg/dL; SALICYLATE < 1.0 mg/dL
[2019-04-11 03:15] VITALS: PULSE 87
== END 2019-04-11 03:15 | disposition home or self-care (01) ==
LOC: COL.ER 21:00
PROVIDERS: Nurse Practitioner
DX: R45.851 Suicidal ideations (principal); F41.9 Anxiety disorder, unspecified; F31.9 Bipolar disorder, unspecified; F43.10 Post-traumatic stress disorder, unspecified; F60.3 Borderline personality disorder; F17.210 Nicotine dependence, cigarettes, uncomplicated; Z91.5 Personal history of self-harm

== ENCOUNTER 2019-04-29 18:54 | Emergency (ER) | payer MEDICARE, MEDICAID ==
[~2019-04-29] VITALS: Ht 167.6 cm; Wt 145.5 kg
[2019-04-29 19:48] LABS: COLLECTION METHOD CLEAN CATCH
[2019-04-29 19:54] LABS: MUCOUS Present /lpf; PH 6 (5-8); URINE APPEARANCE Clear; URINE BACTERIA Rare /hpf; URINE BILIRUBIN Negative (NEGATIVE); URINE BLOOD 1+ (NEGATIVE); URINE COLOR Yellow; URINE GLUCOSE Negative (NEGATIVE); URINE KETONE Negative (NEGATIVE); URINE LEUKOCYTE ESTERASE Negative (NEGATIVE); URINE NITRATE Negative (NEGATIVE); URINE PROTEIN(semi-quant) Negative (NEGATIVE); URINE RBC 0-2 /hpf; URINE UROBILINOGEN Negative (NEGATIVE)
[2019-04-29 20:02] LABS: TRICYCLIC ANTIDEPRESS URINE NEGATIVE
[2019-04-29 20:13] LABS: ALANINE AMINOTRANSFERASE 41 U/L (9-52); ALKALINE PHOSPHATASE 114 U/L (50-136); ANION GAP 7 mmol/L (7-16); AST,SGOT 36 U/L (15-37); BILIRUBIN,TOTAL 0.2 mg/dL (0.0-1.0); BLOOD UREA NITROGEN 11 mg/dL (7-17); CALCIUM 9.5 mg/dL (8.4-10.2); CARBON DIOXIDE 28 mmol/L (22-30); CHLORIDE 103 mmol/L (98-107); CREATININE, serum 0.71 (0.52-1.25); GLUCOSE 182 mg/dL (74-106); POTASSIUM 3.5 mmol/L (3.4-5.0); SODIUM 138 mmol/L (137-145); TOTAL PROTEIN 7.4 gm/dL (6.4-8.2)
[2019-04-29 20:18] LABS: BASO # 0.1 (0.0-0.2); BASO % 0.7 % (0.0-2.0); EOS # 0.2 (0.0-0.7); EOS % 2.3 % (0-4.0); GRAN # 6.2 (1.4-6.5); GRAN % 61.8 % (42.2-75.2); HEMATOCRIT 43.1 % (37.0-47.0); HEMOGLOBIN 14.2 g/dl (12.5-16.0); LYMPH # 2.9 (1.2-3.4); LYMPH % 28.2 % (20.0-51.0); MEAN CELL VOLUME 88 fl (80.0-100.0); MEAN CORPUSCULAR HEMOGLOBIN 29 pg (27.0-31.0); MEAN CORPUSCULAR HGB CONC 33 g/dl (33.0-37.0); MEAN PLATELET VOLUME 10.3 fl (7.4-10.4); MONO # 0.6 (0.1-0.6); MONO % 5.8 % (1.7-9.3); PLATELET COUNT 256 K/mm3 (130-400); RED BLOOD COUNT 4.91 M/mm3 (4.10-5.30); REDCELL DISTRIBUTION WIDTH-CV 14.8 % (11.5-14.5)
[2019-04-29 20:28] LABS: ACETAMINOPHEN < 10 ug/mL (10-30); ALCOHOL(ethanol),MEDICAL < 10 mg/dL; SALICYLATE < 1.0 mg/dL
[2019-04-30 05:09] VITALS: BP 152/87
[2019-04-30 12:20] VITALS: PULSE 89; TEMP 97.9
== END 2019-04-30 12:24 ==
LOC: COL.ER 18:54
PROVIDERS: Family Medicine
DX: T50.912A Poisoning by multiple unspecified drugs, medicaments and biological substances, intentional self-harm, initial encounter (principal); F32.9 Major depressive disorder, single episode, unspecified; F41.9 Anxiety disorder, unspecified; G47.33 Obstructive sleep apnea (adult) (pediatric); I10 Essential (primary) hypertension; K21.9 Gastro-esophageal reflux disease without esophagitis

== ENCOUNTER → 2019-05-27 | Outpatient (CLI) | payer MEDICARE, MEDICAID ==
[2019-05-27 16:47] LABS: COLLECTION METHOD CLEAN CATCH
[2019-05-27 17:01] LABS: MUCOUS Present /lpf; PH 5 (5-8); URINE APPEARANCE Hazy; URINE BACTERIA Rare /hpf; URINE BILIRUBIN Negative (NEGATIVE); URINE BLOOD 1+ (NEGATIVE); URINE COLOR Yellow; URINE GLUCOSE Negative (NEGATIVE); URINE KETONE Negative (NEGATIVE); URINE LEUKOCYTE ESTERASE Negative (NEGATIVE); URINE NITRATE Negative (NEGATIVE); URINE PROTEIN(semi-quant) Negative (NEGATIVE); URINE UROBILINOGEN Negative (NEGATIVE)
== END ==
LOC: ZCOL.LAB 16:27
PROVIDERS: Family Medicine
DX: R35.0 Frequency of micturition (principal)

== ENCOUNTER 2019-06-11 13:49 | Emergency (ER) | payer MEDICARE, MEDICAID ==
[~2019-06-11] VITALS: Ht 170.2 cm; Wt 147.3 kg
[2019-06-11 14:16] VITALS: BP 128/74; TEMP 98
[2019-06-11] MEDS ORDERED: CYMBALTA 30MG30 MG PO (14:33)
[2019-06-11] MEDS ORDERED: ZOFRAN ODT4 MG PO (16:35)
[2019-06-11 16:59] VITALS: PULSE 67
== END 2019-06-11 16:57 | disposition home or self-care (01) ==
LOC: COL.ER 13:49
DX: R11.10 Vomiting, unspecified (principal); K21.9 Gastro-esophageal reflux disease without esophagitis; F17.210 Nicotine dependence, cigarettes, uncomplicated; Z90.49 Acquired absence of other specified parts of digestive tract; Z98.890 Other specified postprocedural states; Z98.51 Tubal ligation status

== ENCOUNTER 2019-07-26 14:48 | Emergency (ER) | payer MEDICARE, MEDICAID ==
[~2019-07-26] VITALS: Ht 167.6 cm; Wt 145.5 kg
[~2019-07-26 14:48] MED LIST changes: +ZOFRAN ODT4 MG PO
[2019-07-26 14:55] VITALS: TEMP 98.2
[2019-07-26 20:46] LABS: BASO # 0.1 (0.0-0.2); BASO % 0.9 % (0.0-2.0); EOS # 0.3 (0.0-0.7); EOS % 2.5 % (0-4.0); GRAN # 5.9 (1.4-6.5); GRAN % 57.1 % (42.2-75.2); HEMATOCRIT 46.7 % (37.0-47.0); HEMOGLOBIN 15.4 g/dl (12.5-16.0); LYMPH # 3.4 (1.2-3.4); LYMPH % 32.7 % (20.0-51.0); MEAN CELL VOLUME 88 fl (80.0-100.0); MEAN CORPUSCULAR HEMOGLOBIN 29 pg (27.0-31.0); MEAN CORPUSCULAR HGB CONC 33 g/dl (33.0-37.0); MEAN PLATELET VOLUME 10.7 fl (7.4-10.4); MONO # 0.6 (0.1-0.6); MONO % 6.2 % (1.7-9.3); PLATELET COUNT 220 K/mm3 (130-400); RED BLOOD COUNT 5.32 M/mm3 (4.10-5.30); REDCELL DISTRIBUTION WIDTH-CV 15.5 % (11.5-14.5)
[2019-07-26 20:57] LABS: ALANINE AMINOTRANSFERASE 61 U/L (9-52); ALBUMIN 4.1 gm/dL (3.5-5.0); ALKALINE PHOSPHATASE 107 U/L (50-136); ANION GAP 10 mmol/L (7-16); AST,SGOT 58 U/L (15-37); BILIRUBIN,TOTAL 0.4 mg/dL (0.0-1.0); BLOOD UREA NITROGEN 12 mg/dL (7-17); CALCIUM 9.6 mg/dL (8.4-10.2); CARBON DIOXIDE 25 mmol/L (22-30); CHLORIDE 102 mmol/L (98-107); GLUCOSE 124 mg/dL (74-106); LIPASE 62 U/L (23-300); POTASSIUM 3.9 mmol/L (3.4-5.0); SODIUM 138 mmol/L (137-145); TOTAL PROTEIN 7.7 gm/dL (6.4-8.2)
[2019-07-26 21:11] LABS: TROPONIN-I < 0.012 ng/mL (0.000-0.035)
[2019-07-26] MEDS ORDERED: PHENERGAN 25 TA25 MG PO (21:36)
[2019-07-26 22:09] VITALS: BP 123/96; PULSE 76
== END 2019-07-26 22:10 | disposition home or self-care (01) ==
LOC: COL.ER 14:48
PROVIDERS: Emergency Medicine
DX: R07.89 Other chest pain (principal); R94.6 Abnormal results of thyroid function studies; I10 Essential (primary) hypertension
CPT/HCPCS: J2270; J2405; J7030

== ENCOUNTER 2019-09-01 15:43 | Emergency (ER) | payer MEDICARE, MEDICAID ==
[~2019-09-01] VITALS: Ht 167.6 cm; Wt 150.0 kg
[2019-09-01 15:51] VITALS: TEMP 99.6
[2019-09-01] MEDS ORDERED: SYNTHROID0.2 MG/TAB PO (16:26)
[2019-09-01 16:30] LABS: COLLECTION METHOD CLEAN CATCH
[2019-09-01] MEDS ORDERED: REXULTI4 MG PO (16:30)
[2019-09-01 16:49] LABS: MUCOUS Present /lpf; PH 5 (5-8); URINE APPEARANCE Cloudy; URINE BACTERIA Moderate /hpf; URINE BILIRUBIN Negative (NEGATIVE); URINE BLOOD 1+ (NEGATIVE); URINE COLOR Yellow; URINE GLUCOSE 3+ (NEGATIVE); URINE KETONE Trace (NEGATIVE); URINE LEUKOCYTE ESTERASE Negative (NEGATIVE); URINE NITRATE Negative (NEGATIVE); URINE PROTEIN(semi-quant) 1+ (NEGATIVE); URINE UROBILINOGEN Negative (NEGATIVE)
[2019-09-01 16:54] LABS: TRICYCLIC ANTIDEPRESS URINE NEGATIVE
[2019-09-01 17:00] LABS: BASO # 0.1 (0.0-0.2); BASO % 0.7 % (0.0-2.0); EOS # 0.4 (0.0-0.7); EOS % 3.1 % (0-4.0); GRAN # 7.1 (1.4-6.5); GRAN % 62.7 % (42.2-75.2); HEMATOCRIT 49.9 % (37.0-47.0); HEMOGLOBIN 16.8 g/dl (12.5-16.0); LYMPH % 26.1 % (20.0-51.0); MEAN CELL VOLUME 88 fl (80.0-100.0); MEAN CORPUSCULAR HEMOGLOBIN 30 pg (27.0-31.0); MEAN CORPUSCULAR HGB CONC 34 g/dl (33.0-37.0); MEAN PLATELET VOLUME 10.6 fl (7.4-10.4); MONO # 0.8 (0.1-0.6); PLATELET COUNT 226 K/mm3 (130-400); RED BLOOD COUNT 5.67 M/mm3 (4.10-5.30); REDCELL DISTRIBUTION WIDTH-CV 15.4 % (11.5-14.5)
[2019-09-01 17:08] LABS: ALANINE AMINOTRANSFERASE 103 U/L (4-34); ALBUMIN 4.3 gm/dL (3.5-5.0); ALKALINE PHOSPHATASE 134 U/L (50-136); ANION GAP 12 mmol/L (7-16); AST,SGOT 100 U/L (15-37); BILIRUBIN,TOTAL 0.3 mg/dL (0.0-1.0); BLOOD UREA NITROGEN 9 mg/dL (7-17); CALCIUM 9.9 mg/dL (8.4-10.2); CARBON DIOXIDE 22 mmol/L (22-30); CHLORIDE 103 mmol/L (98-107); CREATININE, serum 0.83 (0.52-1.25); GLUCOSE 248 mg/dL (74-106); POTASSIUM 3.9 mmol/L (3.4-5.0); SODIUM 137 mmol/L (137-145); TOTAL PROTEIN 7.7 gm/dL (6.4-8.2)
[2019-09-01 17:10] LABS: ACETAMINOPHEN < 10 ug/mL (10-30); ALCOHOL(ethanol),MEDICAL < 10 mg/dL; SALICYLATE < 1.0 mg/dL
[2019-09-01 19:59] VITALS: BP 168/83; PULSE 92
== END 2019-09-01 20:10 | disposition home or self-care (01) ==
LOC: COL.ER 15:43
PROVIDERS: Emergency Medicine
DX: R45.851 Suicidal ideations (principal); R74.0 Nonspecific elevation of levels of transaminase and lactic acid dehydrogenase [LDH]; F32.9 Major depressive disorder, single episode, unspecified; F43.10 Post-traumatic stress disorder, unspecified; I10 Essential (primary) hypertension; E66.9 Obesity, unspecified; F17.210 Nicotine dependence, cigarettes, uncomplicated

== ENCOUNTER 2019-11-07 22:15 | Outpatient (CLI) | payer MEDICARE, MEDICAID ==
[~2019-11-07 22:15] MED LIST changes: -FLEXERIL 1010 MG/TAB PO
[2019-11-08] MEDS ORDERED: FLEXERIL 1010 MG/TAB PO (04:57)
== END 2019-11-08 01:30 | disposition home or self-care (01) ==
LOC: LDR 23:15 → COL.ER 11-08 01:30
DX: R69 Illness, unspecified (principal)
CPT/HCPCS: OP

== ENCOUNTER → 2019-11-07 | Emergency (ER) | payer MEDICARE, MEDICAID ==
[~2019-11-07] MED LIST changes: +FLEXERIL 1010 MG/TAB PO; +REXULTI4 MG PO
== END ==
LOC: COL.ER 22:12
DX: Z72.89 Other problems related to lifestyle (principal)

== ENCOUNTER → 2019-11-07 | Outpatient (REF) | LOC: COL.ER 22:16 | DX: T74.21XA Adult sexual abuse, confirmed, initial encounter (principal) ==

== ENCOUNTER 2019-11-08 04:18 | Emergency (ER) | payer MEDICARE, MEDICAID ==
[~2019-11-08] VITALS: Ht 167.6 cm; Wt 150.0 kg
[2019-11-08 04:22] VITALS: BP 137/83; TEMP 98.2
[2019-11-08] MEDS ORDERED: FLEXERIL 1010 MG/TAB PO (04:57)
[2019-11-08 05:15] VITALS: PULSE 78
== END 2019-11-08 05:15 | disposition home or self-care (01) ==
LOC: COL.ER 04:18
DX: R07.89 Other chest pain (principal); V49.9XXA Car occupant (driver) (passenger) injured in unspecified traffic accident, initial encounter

== ENCOUNTER 2020-01-16 09:19 | Observation (INO) | payer MEDICARE, MEDICAID ==
[2020-01-16] VITALS (12 sets, daily range): BP systolic 107–129; BP diastolic 60–79; PULSE 72–81; TEMP 98–98.7
[~2020-01-16] VITALS: Ht 167.6 cm; Wt 151.3 kg
[~2020-01-16 09:19] MED LIST changes: +FLEXERIL 1010 MG/TAB PO
[2020-01-16 09:30] LABS: BASO # 0.1 (0.0-0.2); BASO % 0.7 % (0.0-2.0); EOS # 0.3 (0.0-0.7); EOS % 2.2 % (0-4.0); GRAN # 7.8 (1.4-6.5); GRAN % 69.1 % (42.2-75.2); HEMATOCRIT 48.4 % (37.0-47.0); HEMOGLOBIN 16.2 g/dl (12.5-16.0); LYMPH # 2.3 (1.2-3.4); LYMPH % 20.7 % (20.0-51.0); MEAN CELL VOLUME 92 fl (80.0-100.0); MEAN CORPUSCULAR HEMOGLOBIN 31 pg (27.0-31.0); MEAN CORPUSCULAR HGB CONC 34 g/dl (33.0-37.0); MEAN PLATELET VOLUME 10.3 fl (7.4-10.4); MONO # 0.8 (0.1-0.6); MONO % 6.7 % (1.7-9.3); PLATELET COUNT 237 K/mm3 (130-400); RED BLOOD COUNT 5.24 M/mm3 (4.10-5.30); REDCELL DISTRIBUTION WIDTH-CV 14.6 % (11.5-14.5)
[2020-01-16 09:37] LABS: PROTHROMBIN TIME 11.3 SECONDS (9.7-12.8)
[2020-01-16 09:38] LABS: COLLECTION METHOD IN
[2020-01-16 09:51] LABS: PH 6 (5-8); SQUAMOUS EPITHELIAL 0-2 /hpf; URINE APPEARANCE Clear; URINE BACTERIA None Seen /hpf; URINE BILIRUBIN Negative (NEGATIVE); URINE BLOOD 3+ (NEGATIVE); URINE COLOR Straw; URINE GLUCOSE Negative (NEGATIVE); URINE KETONE Negative (NEGATIVE); URINE LEUKOCYTE ESTERASE Negative (NEGATIVE); URINE NITRATE Negative (NEGATIVE); URINE PROTEIN(semi-quant) Negative (NEGATIVE); URINE UROBILINOGEN Negative (NEGATIVE)
[2020-01-16 09:52] LABS: TRICYCLIC ANTIDEPRESS URINE NEGATIVE
[2020-01-16 09:57] LABS: BILIRUBIN,TOTAL 0.3 mg/dL (0.0-1.0); CALCIUM 8.9 mg/dL (8.4-10.2); CREATININE, serum 0.76 (0.52-1.25); POTASSIUM 3.7 mmol/L (3.4-5.0); TOTAL PROTEIN 7.7 gm/dL (6.4-8.2)
[2020-01-16] MEDS ORDERED: RESTORIL30 MG (14:26)
[2020-01-16] MEDS ORDERED: GLUCOPHAGE XR500 M1 PO (14:27)
[2020-01-16] MEDS ORDERED: K-DUR20 MEQ PO (14:28)
[2020-01-16] MEDS ORDERED: ESKALITH C450 MG/TAB PO (14:30)
[2020-01-16] MEDS ORDERED: MINIPRESS 5M5 MG/CAP PO (14:30)
--- NOTE | 2020-01-16 14:48 | NUR ---
Patient arrived to the floor at this time. She is alert and oriented, conversational at this time. Declines pain or discomfort at this time. Left hand graps was noticably weaker than the right, but left leg was comparable to right. Patient does have dropp foot on the right side from prior injury. She is aware of her POC at this time. Pt is set up in room and comfortable at this. Medication rec has been completed. Will provide cares as requested. No other needs at this time. Call light is in reach.
--- NOTE | 2020-01-16 17:35 | NUR ---
Patient sitting up in the recliner watching TV. VSS. IV CDI. Patient wanting the nurse to sit with her and talk with her. Patient requesting some crackers until dinner arrives. No further needs expressed from patient. Call light within reach
--- NOTE | 2020-01-16 18:00 | NUR ---
Patient stated to the nurse that she does not feel safe and wants to go back to [place] where she is checked on every 15 minutes. NEPTALI Bass notified and talked with patient. Patient was transfered from room 315 to 312 and put on suicide precautions. JULY Branch charge notified. Nurse gio tied all loose cords, removed curtins and put orange magnet on outside of door and signage. Patient laying in bed. Call light within reach. Bed alarm on an door left open. No further needs expressed from the patient
--- NOTE | 2020-01-16 21:32 | NUR ---
PER BONNIE THE PATIENT NEEDS TO BE ON 15 MINUTE CHECKS. PRESCHOOL ASSISTANT HAS BEEN NOTIFIED OF THIS. PATIENT DOES NOT NEED A SITTER AT THIS TIME.
--- NOTE | 2020-01-16 21:34 | NUR ---
AT 2131 I NOTIFIED Kayla HOLLOWAY OF THE ANSWERS TO THE PATIENTS SUICIDIAL SCREENING. NEED TO DO 15 MINUTE CHECKS ON THE PATIENT
--- NOTE | 2020-01-16 22:58 | NUR ---
SET UP HOSPITALS CPAP FOR PT TO USE, PT IS ON AND KARLY WELL WITH NO O2 CONNECTED. PT SATURATIONS IN THE MID TO HIGH 90'S NO DISTESSS NOTED AT THIS TIME
[2020-01-17] VITALS (44 sets, daily range): BP systolic 107–136; BP diastolic 60–677; PULSE 59–81; TEMP 98.2–98.6
--- NOTE | 2020-01-17 04:42 | NUR ---
PATIENT HAS HAD AN EVENTFUL NIGHT. PATIENT HAS NOT SLEPT MUCH THROUGH THE NIGHT, SHE WAS UP AND DOWN TO THE RESTROOM. PATIENT IS ON [place] AND IS NORMAL SINUS RTHYTHM. PATIENT IS NPO CURRENTLY FOR HER MRI/MRA. 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 THIS HAS NOT CHANGED THROUGH THE SHIFT. HER PSYCH CONSULT HAS BEEN FAXED. PATIENT IS STILL COMPLAINING OF SOME VISION DISTURBANCE. PATIENT HAS HAD A COUPLE SNACKS DURING THE NIGHT. PATIENT IS WALKING AROUND IN HER ROOM WHILE THIS NURSE WATCHES HER. PATIENT DENIES ANY OTHER NEEDS. WILL REPORT OFF TO DAY SHIFT
[2020-01-17 06:52] LABS: BASO # 0.1 (0.0-0.2); BASO % 1.1 % (0.0-2.0); EOS # 0.3 (0.0-0.7); GRAN # 4.9 (1.4-6.5); GRAN % 57.5 % (42.2-75.2); HEMATOCRIT 46.4 % (37.0-47.0); LYMPH # 2.5 (1.2-3.4); LYMPH % 29.5 % (20.0-51.0); MEAN CELL VOLUME 93 fl (80.0-100.0); MEAN CORPUSCULAR HEMOGLOBIN 30 pg (27.0-31.0); MEAN CORPUSCULAR HGB CONC 32 g/dl (33.0-37.0); MEAN PLATELET VOLUME 10.9 fl (7.4-10.4); MONO # 0.6 (0.1-0.6); MONO % 7.4 % (1.7-9.3); PLATELET COUNT 233 K/mm3 (130-400); RED BLOOD COUNT 4.98 M/mm3 (4.10-5.30); REDCELL DISTRIBUTION WIDTH-CV 14.7 % (11.5-14.5)
[2020-01-17 07:07] LABS: ALBUMIN 3.7 gm/dL (3.5-5.0); BILIRUBIN,TOTAL 0.3 mg/dL (0.0-1.0); CALCIUM 8.8 mg/dL (8.4-10.2); CHOLESTEROL RISK RATIO 4.1; CREATININE, serum 0.82 (0.52-1.25); POTASSIUM 4.1 mmol/L (3.4-5.0)
--- NOTE | 2020-01-17 10:06 | NUR ---
PT RESTING IN CHAIR SLEEPING. AWOKE EASILY. DENIES PAIN. CURRENTLY DENIES ANY IDEATION OR THOUGHTS OF SUICIDE. NPO FOR MRI THIS AM. ON TELE. IN [place]. NO NEW CONCERNS
[2020-01-17] MEDS ORDERED: ASPI325T6 PO (12:27)
[2020-01-17] MEDS ORDERED: LIPITOR 40MG TA40 MG PO (12:28)
--- NOTE | 2020-01-17 14:10 | NUR ---
PT DISCHARGED TO [facility] @1400. MEDS TAKEN FROMPHARMACY AND GIVEN TO [facility] STAFF ESTUARDO CHAVARRIA. PT AWARE. CURBSIDE REPORT GIVEN. PT REQUESTED TIA EDUCATION SHEETS THUS GIVEN. IV TO RT AC DC'D. PT DENIES SUICIDE IDEATION UPON DISCHARGE.
--- NOTE | 2020-01-17 14:12 | NUR ---
PT DRESSED IN HOME ATTIRE IN PREPARATION FOR DISCHARGE TO [facility].
--- NOTE | 2020-01-17 15:23 | NUR ---
Supervisor Roller Shop attended clinical rounds with the team and patient is cleared for discharge. SW contacted the [facility] and was advised they are holding a bed for her. JOCELYNN met with patient to discuss discharge planning. Patient has been at the [facility] since last Friday and reports before this was living alone in [place]. Patient sees NEPTALI Hawthorne for primary care and obtains medications from [facility] pharmacy. Patient uses a CPAP, cane and no other DME. Patient is independent with ADLS and states she plans to return to the [facility]. Patient does not have Advance Directives but lists her sister, Felicitas (ph#[phone]) as an emergency contact. JOCELYNN coordianted with Eduardo at [facility] to arrange transportation. No additional needs at this time.
== END 2020-01-17 13:55 | disposition psychiatric hospital, planned readmission (93) ==
LOC: COL.ER 09:19 → MEDICAL 11:53
PROVIDERS: Emergency Medicine; Physician Assistant; ADMIT Internal Medicine
DX: G45.9 Transient cerebral ischemic attack, unspecified (principal); I10 Essential (primary) hypertension; E11.9 Type 2 diabetes mellitus without complications; Z79.84 Long term (current) use of oral hypoglycemic drugs; E78.5 Hyperlipidemia, unspecified; Z66 Do not resuscitate; E03.9 Hypothyroidism, unspecified; F17.210 Nicotine dependence, cigarettes, uncomplicated; K21.9 Gastro-esophageal reflux disease without esophagitis; F43.10 Post-traumatic stress disorder, unspecified; F31.9 Bipolar disorder, unspecified; F60.3 Borderline personality disorder; M79.89 Other specified soft tissue disorders; M21.371 Foot drop, right foot; E66.01 Morbid (severe) obesity due to excess calories; Z68.43 Body mass index [BMI] 50.0-59.9, adult; Z88.8 Allergy status to other drugs, medicaments and biological substances; Z98.51 Tubal ligation status; Z90.49 Acquired absence of other specified parts of digestive tract; Z79.899 Other long term (current) drug therapy
CPT/HCPCS: A9585; G0378; J1650; J2060; J7030; Q9967

== ENCOUNTER 2020-01-17 19:17 | Emergency (ER) | payer MEDICARE, MEDICAID ==
[~2020-01-17] VITALS: Ht 167.6 cm; Wt 145.5 kg
[~2020-01-17 19:17] MED LIST changes: +ASPI325T6 PO; +ESKALITH C450 MG/TAB PO; +GLUCOPHAGE XR500 M1 PO; +LIPITOR 40MG TA40 MG PO; +MINIPRESS 5M5 MG/CAP PO; +RESTORIL30 MG
[2020-01-17 19:19] VITALS: BP 126/70; TEMP 98.8
[2020-01-17 19:58] LABS: BASO # 0.1 (0.0-0.2); BASO % 0.8 % (0.0-2.0); EOS # 0.3 (0.0-0.7); EOS % 2.9 % (0-4.0); GRAN # 6.8 (1.4-6.5); HEMATOCRIT 44.9 % (37.0-47.0); HEMOGLOBIN 14.7 g/dl (12.5-16.0); LYMPH # 2.3 (1.2-3.4); LYMPH % 22.1 % (20.0-51.0); MEAN CELL VOLUME 93 fl (80.0-100.0); MEAN CORPUSCULAR HEMOGLOBIN 31 pg (27.0-31.0); MEAN CORPUSCULAR HGB CONC 33 g/dl (33.0-37.0); MEAN PLATELET VOLUME 10.4 fl (7.4-10.4); MONO # 0.7 (0.1-0.6); MONO % 6.7 % (1.7-9.3); PLATELET COUNT 219 K/mm3 (130-400); RED BLOOD COUNT 4.81 M/mm3 (4.10-5.30); REDCELL DISTRIBUTION WIDTH-CV 14.6 % (11.5-14.5)
[2020-01-17 20:09] LABS: ALBUMIN 3.7 gm/dL (3.5-5.0); BILIRUBIN,TOTAL 0.5 mg/dL (0.0-1.0); CREATININE, serum 1.03 (0.52-1.25); POTASSIUM 4.1 mmol/L (3.4-5.0); TOTAL PROTEIN 7.2 gm/dL (6.4-8.2)
[2020-01-17 20:23] LABS: ERYTHROCYTE SEDIMENTATION RATE 14 mm/hr (0-20)
[2020-01-17 20:41] LABS: COLLECTION METHOD CLEAN CATCH
[2020-01-17 20:48] LABS: PH 6 (5-8); SQUAMOUS EPITHELIAL 0-2 /hpf; URINE APPEARANCE Clear; URINE BACTERIA None Seen /hpf; URINE BILIRUBIN Negative (NEGATIVE); URINE BLOOD 3+ (NEGATIVE); URINE COLOR Yellow; URINE GLUCOSE Negative (NEGATIVE); URINE KETONE Negative (NEGATIVE); URINE LEUKOCYTE ESTERASE Negative (NEGATIVE); URINE NITRATE Negative (NEGATIVE); URINE PROTEIN(semi-quant) Negative (NEGATIVE); URINE RBC 0-2 /hpf; URINE UROBILINOGEN Negative (NEGATIVE)
[2020-01-17 21:52] VITALS: PULSE 93
== END 2020-01-17 21:52 | disposition home or self-care (01) ==
LOC: COL.ER 19:17
PROVIDERS: Family Medicine
DX: R32 Unspecified urinary incontinence (principal); R53.1 Weakness; E11.9 Type 2 diabetes mellitus without complications; I10 Essential (primary) hypertension

== ENCOUNTER 2020-02-02 09:51 | Inpatient (IN) | payer MEDICARE, MEDICAID ==
[2020-02-02] VITALS (414 sets, daily range): BP systolic 128–158; BP diastolic 64–94; PULSE 92–109; TEMP 99–99.6; O2SAT 69–99
[~2020-02-02] VITALS: Ht 167.6 cm; Wt 144.2 kg
[2020-02-02 10:12] LABS: BASO # 0.1 (0.0-0.2); BASO % 0.4 % (0.0-2.0); EOS # 0.1 (0.0-0.7); EOS % 0.4 % (0-4.0); GRAN # 14.4 (1.4-6.5); GRAN % 78.7 % (42.2-75.2); HEMOGLOBIN 16.9 g/dl (12.5-16.0); LYMPH # 2.2 (1.2-3.4); MEAN CELL VOLUME 93 fl (80.0-100.0); MEAN CORPUSCULAR HEMOGLOBIN 30 pg (27.0-31.0); MEAN CORPUSCULAR HGB CONC 32 g/dl (33.0-37.0); MEAN PLATELET VOLUME 10.7 fl (7.4-10.4); MONO # 1.3 (0.1-0.6); MONO % 7.1 % (1.7-9.3); PLATELET COUNT 254 K/mm3 (130-400); REDCELL DISTRIBUTION WIDTH-CV 14.6 % (11.5-14.5)
[2020-02-02 10:13] LABS: HEMATOCRIT 52.1 % (37.0-47.0)
[2020-02-02 11:16] LABS: ALANINE AMINOTRANSFERASE 59 U/L (4-34); ALBUMIN 4.2 gm/dL (3.5-5.0); ALKALINE PHOSPHATASE 89 U/L (50-136); ANION GAP 4 mmol/L (7-16); AST,SGOT 212 U/L (15-37); BILIRUBIN,TOTAL 0.6 mg/dL (0.0-1.0); BLOOD UREA NITROGEN 7 mg/dL (7-17); CALCIUM 9.4 mg/dL (8.4-10.2); CARBON DIOXIDE 31 mmol/L (22-30); CHLORIDE 102 mmol/L (98-107); CREATININE, serum 1.16 (0.52-1.25); GLUCOSE 90 mg/dL (74-106); POTASSIUM 3.5 mmol/L (3.4-5.0); SODIUM 136 mmol/L (137-145)
[2020-02-02 11:17] LABS: ACETAMINOPHEN < 10 ug/mL (10-30); ALCOHOL(ethanol),MEDICAL < 10 mg/dL; SALICYLATE < 1.0 mg/dL
[2020-02-02 11:46] LABS: TSH w REFLEX 0.752 uIU/mL (0.465-4.680)
[2020-02-02 19:10] LABS: ALBUMIN 3.7 gm/dL (3.5-5.0); BILIRUBIN,TOTAL 0.6 mg/dL (0.0-1.0); CALCIUM 8.5 mg/dL (8.4-10.2); CREATININE, serum 1.02 (0.52-1.25); POTASSIUM 3.2 mmol/L (3.4-5.0); TOTAL PROTEIN 7.2 gm/dL (6.4-8.2)
--- NOTE | 2020-02-02 20:00 | NUR ---
Patient resting quietly in bed watching televison. Oral temperature is 99.6, other vitals within normal limits. She denies any pain or discomfort at this time. A small abrasion is noted to the bridge of her nose; it is scabbed and left open to air. Her feet are dry, cracked and stained from stool/vomit; groin is slightly excoriated. No other skin issues noted. No further needs identified at this time. Patient encouraged to drink PO fluids. Spoke with Dr. Mckeon regarding patient's urine output; he states he would like patient to have 100-200 mL of urine output per hour. Will continue to monitor.
--- NOTE | 2020-02-02 21:56 | NUR ---
Updated poison control on patient's most recent vitals and labs. [place] levels are trending down and vitals are within normal limits. Patient's orientation status is improving. According to poison control, 2300 and 0300 lithium checks can be postponed until AM lab draws. Confirmed this with Ghada. Will continue to monitor.
--- NOTE | 2020-02-02 23:11 | NUR ---
UPON ASSESSING PATIENTS CPAP I DETERMINED THAT IT WAS NOT APPROPRIATE TO PLACE ON PATIENT FOR THE FOLLOWING REASONS. INSIDE THE TUBING THERE WERE FLECKS OF SOME TYPE OF BLACK PARTICLES. SECONDLY THE PATIENTS MASK HAS DUST AND HAS TURNED A DU/BROWN COLOR INDICATING THAT IT SHOULD BE REPLACED AND HAS BEGAN TO BREAK DOWN. THIRDLY THE CPAP IS MISSING THE WATER CHAMBER THAT CONNECTS TO THE BACK ON THE CPAP. I EDUCATED THE PATIENT AND NOTIFIED THE RN OF THE PATIENTS CPAP. I THEN PRESENTED AND PLACED CARDIOPULMONARYS AUTO CPAP ON PATIENT.
[2020-02-03] VITALS (554 sets, daily range): BP systolic 103–138; BP diastolic 62–84; PULSE 68–98; TEMP 97–99.9; O2SAT 71–100
[2020-02-03 06:43] LABS: BASO # 0.1 (0.0-0.2); BASO % 0.6 % (0.0-2.0); EOS # 0.4 (0.0-0.7); EOS % 2.5 % (0-4.0); GRAN # 10.2 (1.4-6.5); HEMATOCRIT 48.5 % (37.0-47.0); HEMOGLOBIN 15.2 g/dl (12.5-16.0); LYMPH # 2.5 (1.2-3.4); LYMPH % 17.3 % (20.0-51.0); MEAN CELL VOLUME 96 fl (80.0-100.0); MEAN CORPUSCULAR HEMOGLOBIN 30 pg (27.0-31.0); MEAN CORPUSCULAR HGB CONC 31 g/dl (33.0-37.0); MEAN PLATELET VOLUME 10.4 fl (7.4-10.4); PLATELET COUNT 191 K/mm3 (130-400); RED BLOOD COUNT 5.06 M/mm3 (4.10-5.30); REDCELL DISTRIBUTION WIDTH-CV 14.7 % (11.5-14.5)
[2020-02-03 06:53] LABS: ALBUMIN 3.7 gm/dL (3.5-5.0); BILIRUBIN,TOTAL 0.7 mg/dL (0.0-1.0); CALCIUM 8.5 mg/dL (8.4-10.2); CREATININE, serum 1.04 (0.52-1.25); MAGNESIUM 1.9 mg/dL (1.6-2.3); POTASSIUM 3.6 mmol/L (3.4-5.0)
--- NOTE | 2020-02-03 07:39 | NUR ---
Small abrasion to the bridge of nose remains unchanged from initial shift assessment.
--- NOTE | 2020-02-03 07:40 | NUR ---
Report given to JULY Burch.
[2020-02-03 11:53] LABS: COLLECTION METHOD CLEAN CATCH
[2020-02-03 12:18] LABS: TRICYCLIC ANTIDEPRESS URINE NEGATIVE
[2020-02-03 12:34] LABS: PH 6 (5-8); SQUAMOUS EPITHELIAL None Seen /hpf; URINE APPEARANCE Clear; URINE BACTERIA None Seen /hpf; URINE BILIRUBIN Negative (NEGATIVE); URINE BLOOD 3+ (NEGATIVE); URINE COLOR Straw; URINE GLUCOSE Negative (NEGATIVE); URINE KETONE Trace (NEGATIVE); URINE LEUKOCYTE ESTERASE Trace (NEGATIVE); URINE NITRATE Negative (NEGATIVE); URINE PROTEIN(semi-quant) Negative (NEGATIVE); URINE RBC 0-2 /hpf; URINE UROBILINOGEN Negative (NEGATIVE)
--- NOTE | 2020-02-03 16:40 | NUR ---
Report called to medical. Pt to transfer to room 312 via acc by RN. Sending pt belongings up at this time. Telemetry unit in place. Pt notified of plans to transfer.
--- NOTE | 2020-02-03 16:55 | NUR ---
Veterinary Medicine Scientist met with the patient to complete initial intake. The patient lives alone in [facility]. The patient has a walker, cane and wheelchair at home. The patient uses a CPAP and [facility] The patient's PCP is NEPTALI Hawthorne. The patient receives medications from [facility]. The patient does not have DPOA-HC and was not interested in a form. The patient has a 19 yr old son, Mukund Jean. He lives here in [place] but does not know his phone number. The patient plans to discharge to the [facility] at discharge. She states they will provide transportation. There are no additional needs at this time.
--- NOTE | 2020-02-03 17:52 | NUR ---
pt arrived to floor, pt drowsy, flat affect present, pt fluids running, pt lung sounds di, pt bs present, personnel research psychologist equal, no other needs at this time.
--- NOTE | 2020-02-03 21:20 | NUR ---
Pt assessment completed and documented. Pt sitting up in bed at this time watching television. Pt alert and oriented x3. Denies pain. IVF infusing to right forearm IV without complications. Telemetry on. Pt denies any other needs at this time. Call light within reach. Bed alarm on. Will continue to monitor.
--- NOTE | 2020-02-04 00:03 | NUR ---
PT NOT WANTING TO WEAR CPAP, COMPLAINING THAT THE MASK IS UNCOMFORTABLE IS TOO TIGHT. MASK IS LOOSE POSSIBLE WITHOUT BEING TAKEN OFF OF PT. RN CALLED ABOUT AN HOUR AFTER CPAP WAS PLACED ON PT AND PT REFUSED TO WEAR CPAP AND WILL NOT SLEEP IF CPAP HAS TO BE WORN. PT IS ON RA KARLY WELL WIITH NO DISTRESS NOTED AT THIS TIME. WILL CONTINUE TO MONITOR AND ASSESS
[2020-02-04 03:23] VITALS: BP 135/78; PULSE 91; TEMP 98.5
--- NOTE | 2020-02-04 05:50 | NUR ---
Pt has been awake intermittently throughout the night. Pt A&O x3 overnight. Pt has sat up on the edge of her bed a few times during the night and was able to stand to reposition herself in bed once. Pt has been incontinent of bowel x1 and has been incontinent of urine X4. Pt has not called to get up to use the restroom and when rounding on pt, pt states she does not feel like she needs to be cleaned up when she is actually incontinent in her bed. Purewick placed. IVF infusing per orders to right forearm IV. Suicide precautions in place per orders. Pt denies any other needs. Call light within reach. Bed alarm on.
--- NOTE | 2020-02-04 07:00 | NUR ---
Report received from JULY Clinton. pT in bed resting, awake and alert, denies needs, willc ontinue to monitor.
[2020-02-04 07:11] LABS: BASO # 0.1 (0.0-0.2); BASO % 0.4 % (0.0-2.0); EOS # 0.3 (0.0-0.7); EOS % 2.5 % (0-4.0); GRAN # 8.9 (1.4-6.5); GRAN % 72.7 % (42.2-75.2); HEMATOCRIT 46.2 % (37.0-47.0); HEMOGLOBIN 14.6 g/dl (12.5-16.0); LYMPH # 2.1 (1.2-3.4); LYMPH % 17.2 % (20.0-51.0); MEAN CELL VOLUME 96 fl (80.0-100.0); MEAN CORPUSCULAR HEMOGLOBIN 30 pg (27.0-31.0); MEAN CORPUSCULAR HGB CONC 32 g/dl (33.0-37.0); MEAN PLATELET VOLUME 10.5 fl (7.4-10.4); MONO # 0.8 (0.1-0.6); MONO % 6.8 % (1.7-9.3); PLATELET COUNT 181 K/mm3 (130-400); RED BLOOD COUNT 4.81 M/mm3 (4.10-5.30); REDCELL DISTRIBUTION WIDTH-CV 14.6 % (11.5-14.5)
[2020-02-04 07:34] LABS: ALANINE AMINOTRANSFERASE 52 U/L (4-34); ALBUMIN 3.5 gm/dL (3.5-5.0); ALKALINE PHOSPHATASE 86 U/L (50-136); ANION GAP 3 mmol/L (7-16); AST,SGOT 103 U/L (15-37); BILIRUBIN,TOTAL 0.6 mg/dL (0.0-1.0); CALCIUM 8.6 mg/dL (8.4-10.2); CARBON DIOXIDE 27 mmol/L (22-30); CHLORIDE 107 mmol/L (98-107); CREATININE, serum 0.74 (0.52-1.25); GLUCOSE 102 mg/dL (74-106); MAGNESIUM 2.2 mg/dL (1.6-2.3); POTASSIUM 3.6 mmol/L (3.4-5.0); SODIUM 138 mmol/L (137-145); TOTAL PROTEIN 6.9 gm/dL (6.4-8.2)
[2020-02-04 07:35] LABS: BLOOD UREA NITROGEN < 2 mg/dL (7-17)
--- NOTE | 2020-02-04 08:30 | NUR ---
Assessment charted. Pt in bed resting, staets she has not gone to bathroom but when checked pt is completely incontinent of bowel and bladder. Changed pt. Pt is very weak, able to roll but shakes often. disucssed concerns for ability to ambulate, manage incontinence and poison controls concern for lithium level tested at [facility] with malgorzata GUNDERSON and Infant Caregiver Elena. Will continue to monitor.
[2020-02-04] MEDS ORDERED: ASPIRIN 81M81 MG/TA2 PO (08:50)
[2020-02-04 08:56] VITALS: BP 149/88; PULSE 93; TEMP 98.3
[2020-02-04 12:53] VITALS: BP 151/84; PULSE 70; TEMP 98.3
--- NOTE | 2020-02-04 16:41 | NUR ---
The patient was to tentatively discharge today to the Crisis [facility]ization Unit. PT then worked with the patient and the patient is only walking 6 ft. The patient is now incontinent of bowels. JOCELYNN contacted and updated Ashley at the Crisis Stabilization Unit. Ashley reports that they would not be able to provide that type of care for the patient and would recommend SNF or if the patient becomes stable and able to take care of herself, then they would accept her. SW informed the clinical team. An IPR Consult was ordered. Autumn, IPR Director, reports that they do not have any beds available at this time. PT to continue to work with the patient until able to safely ambulate and perfrom ADLs and then tranfer to the Crisis Stabilization Unit. SW to continue to follow.
[2020-02-04 17:43] VITALS: BP 143/90; PULSE 84; TEMP 99.4
--- NOTE | 2020-02-04 18:18 | NUR ---
Pt has been resting in chair at side of bed for most of day. Continues to be completely incontinent of bowel and bladder with no awareness of when she goes. Pt is more oriented this evening, able to answer all 4 orientation questions appropriately, more eager to interact. continues to have flat affect, denies pian, will give bedside shift report to nightshift nurse who will resume care.
[2020-02-04 20:10] VITALS: BP 137/70; PULSE 81; TEMP 97.5
--- NOTE | 2020-02-04 21:10 | NUR ---
Pt assessment completed and documented. Pt assisted back to bed x2 assist from recliner. Pt states she was not incontinent of urine when asking her, however the pad on the recliner was soaked with urine when she stood up to move to the bed. Pt alert and oriented x3. Denies pain. States she is very tired tonight and would like to get sleep. Pt denies any other needs. Suicide precautions in place. Bed alarm on. Call light within reach. Will continue to monitor.
[2020-02-05] VITALS (8 sets, daily range): BP systolic 118–147; BP diastolic 8–87; PULSE 76–103; TEMP 97.5–98.4
--- NOTE | 2020-02-05 05:22 | NUR ---
Pt had rested well overnight in bed. No complaints of pain. Pt has remained incontinent of urine thoughout the night. Pt able to answer all orientation questions appropriately throughout the night other than the current year. Pt denies any other needs. Call light within reach. Suicide precautions in place. Bed alarm on.
[2020-02-05 08:04] LABS: CALCIUM 9.2 mg/dL (8.4-10.2); CREATININE, serum 0.86 (0.52-1.25); POTASSIUM 3.7 mmol/L (3.4-5.0)
--- NOTE | 2020-02-05 08:45 | NUR ---
Assessment complete. Patient resting in bed but requesting to get up to the restroom. Patient got up, ambulated to restroom using walker with minimal assistance. Gait was slow and weakness was evident but patient did very well. She had a soft formed bowel movement while in the restroom and ambulated to chair to sit up for breakfast. Pt states that she feels better today, still weak but feels improved. Visible tremors in arms and hands while performing tasks. Patient has some what of a flat affect but is talkative when spoke to. No IV site, okay per orders. Patient easily visible. No other needs were expressed at this time. Call light is in reach.
--- NOTE | 2020-02-05 12:02 | NUR ---
Patient requested to walk. I walked with her in the diamond, about 50 ft patient did well with walker and minimal assistance. Gait remains unsteady and shuffled. Patient is now back in bed resting, eyes closed. Call light is in reach. Bed alarm is set.
--- NOTE | 2020-02-05 16:14 | NUR ---
Patient ambulated to restroom via walker at this time. Pt did well. States she feels a little short of breath after using the restroom. Pt is not tachypnic and is satting 97 on room air. Patient said she felt okay before I left the room. Denied that it was anxiety related at the time. No other needs were expressed. Conintuing to monitor. Patient sitting up at the side of the bed at this time. Call light is in reach. Bed alarm is on.
--- NOTE | 2020-02-05 17:14 | NUR ---
Patient is now comfortable laying in bed, eyes closed. She has ambulated to the restroom many times through the shift having many small soft formed bowel movements and urine. Patient has been completly continent all day and has ambulated with the walker via standby all day. No other needs were expressed at this time. Call light is in reach. Fall precautions in plcae, Bed alarm set.
--- NOTE | 2020-02-05 21:05 | NUR ---
PT IN BED WITH HOB ELEVATED TO 45 DEGREE ANGLE. PT DENIES PAIN OR DISCOMFORT AND REQUEST SOMETHING TO HELP HER SLEEP. PT HAS NO FURTHER NEEDS AT THIS TIME, CALL LIGHT WITHIN REACH.
--- NOTE | 2020-02-05 21:09 | NUR ---
PT DENIES ANY THOUGHTS OF SUICIDE AT THIS TIME.
--- NOTE | 2020-02-05 21:22 | NUR ---
NOTIFY VENKAT MOHAN IN REFERENCE TO PT'S REQUEST TO GET SOMETHING TO HELP HER SLEEP. RECEIVED ORDER FOR MELATONIN 9MG FOR HS DAILY.
--- NOTE | 2020-02-05 22:47 | NUR ---
PT YELLS FOR HELP AND HAS BEEN GETTING UP EVERY 15 MINUTES TO GO TO THE BATHROOM. PT NOT ABLE TO URINATE. PT WAS BLADDER SCANNED AND ONLY SHOWED 20ML IN HER BLADDER. PT SITTING AT SIDE OF BED WITH BED ALARM ON. NURSES ABLE TO SEE PT IN ROOM FROM NURSES' STATION. CALL LIGHT WITHIN REACH.
--- NOTE | 2020-02-06 03:12 | NUR ---
PT CONTINUES TO GET UP AND IS NOT CALLING MUCH EARLIER. PT EARLIER WAS CALLING BETWEEN EVERY 5 TO 15 MINUTES. PT HAS WALKED ABOUT 100 FT X5 THIS NIGHT. PT STARTED MENSTRUAL CYCLE YESTERDAY AROUND 2300. PT RESTING AT THIS TIME IS RESTING IN BED WITH CALL LIGHT WITHIN REACH.
[2020-02-06 03:37] VITALS: BP 131/96; PULSE 81; TEMP 97.9
--- NOTE | 2020-02-06 05:42 | NUR ---
PT RESTING IN BED WITH HOB AT 45 DEGREE ANGLE. CALL LIGHT IN REACH AND BED ALARM ON.
[2020-02-06 07:32] VITALS: BP 147/75; PULSE 84; TEMP 97.5
--- NOTE | 2020-02-06 08:00 | NUR ---
Assessment complete. Patient is awake and alert at this time. Denies pain or discomfort. Per report she did not sleep through the night, she expressed this as well. She has been the restroom multiple times this morning ia standby assist with the walker and has walked in the diamond. She is doing well ambulating. Patient just sits in the room with no tv or stimulation but denies the want or need for anything else. Continuing to monitor closely. Call light is in reach. bed alarm is on.
--- NOTE | 2020-02-06 09:27 | NUR ---
Assessment complete. Patient sitting up in recliner at this time. States that he feels good and wants to go home. Right sided weakness is still very evident but patient has been excercising those extremities on his own. He understands his POC and still states he does not want to go to rehab. IV site is CD&I, flushed well. Bed was made. Pt denies pain or discomfort. No other needs. Call light is in reach.
[2020-02-06 10:25] LABS: COLLECTION METHOD CLEAN CATCH
[2020-02-06 10:33] LABS: MUCOUS Present /lpf; PH 6 (5-8); URINE APPEARANCE Clear; URINE BACTERIA Rare /hpf; URINE BILIRUBIN Negative (NEGATIVE); URINE BLOOD 3+ (NEGATIVE); URINE COLOR Red; URINE GLUCOSE Negative (NEGATIVE); URINE KETONE Negative (NEGATIVE); URINE LEUKOCYTE ESTERASE Negative (NEGATIVE); URINE NITRATE Negative (NEGATIVE); URINE PROTEIN(semi-quant) 2+ (NEGATIVE); URINE RBC >50 /hpf; URINE UROBILINOGEN Negative (NEGATIVE)
[2020-02-06 10:53] VITALS: BP 133/90; PULSE 80; TEMP 98.7
[2020-02-06] MEDS ORDERED: CIPRO 500MG TA500 MG PO (11:08)
--- NOTE | 2020-02-06 12:10 | NUR ---
Patient left the floor at this time to discharge with the crisis center. [place] was discussed, patient expressed understanding. She did have difficultly signing the paperwork. Patients clothes were no where to be found, she left in a gown. Patient did not take dose of cipro but stated that she would take the rx. She did mention that frequency is normal for her because she drinks so much water. I reminded her that she had the right to refuse to fill the rx, she expressed understanding. All other belongings were trx with patient.. No further questions.
== END 2020-02-06 12:13 | disposition home or self-care (01) | DRG 918 ==
LOC: COL.ER 09:51 → ICU 11:35 → MEDICAL 02-03 17:07
PROVIDERS: Emergency Medicine; Physician Assistant; ADMIT Internal Medicine
DX: T42.4X2A Poisoning by benzodiazepines, intentional self-harm, initial encounter (principal); G72.2 Myopathy due to other toxic agents; E87.1 Hypo-osmolality and hyponatremia; N39.0 Urinary tract infection, site not specified; Z68.43 Body mass index [BMI] 50.0-59.9, adult; T14.91XA Suicide attempt, initial encounter; F31.9 Bipolar disorder, unspecified; E66.01 Morbid (severe) obesity due to excess calories; I10 Essential (primary) hypertension; E03.9 Hypothyroidism, unspecified; E11.9 Type 2 diabetes mellitus without complications; K21.9 Gastro-esophageal reflux disease without esophagitis; F43.10 Post-traumatic stress disorder, unspecified; F60.3 Borderline personality disorder; Z86.73 Personal history of transient ischemic attack (TIA), and cerebral infarction without residual deficits
CPT/HCPCS: 99223-AI; 99232-AI; 99233-AI; 99239; A9284; J0696; J1650; J1940; J3480; J7030

== ENCOUNTER 2020-04-30 12:50 | Emergency (ER) | payer MEDICARE, MEDICAID ==
[~2020-04-30] VITALS: Ht 167.6 cm; Wt 154.5 kg
[~2020-04-30 12:50] MED LIST changes: +ASPIRIN 81M81 MG/TA2 PO
[2020-04-30 12:53] VITALS: BP 133/82; TEMP 97.7
[2020-04-30] MEDS ORDERED: NAPROSYN500 MG PO (14:20)
[2020-04-30 14:32] VITALS: PULSE 93
== END 2020-04-30 14:32 | disposition home or self-care (01) ==
LOC: COL.ER 12:50
DX: S83.91XA Sprain of unspecified site of right knee, initial encounter (principal); I10 Essential (primary) hypertension; E11.9 Type 2 diabetes mellitus without complications; F41.9 Anxiety disorder, unspecified; E03.9 Hypothyroidism, unspecified; F31.9 Bipolar disorder, unspecified; F43.10 Post-traumatic stress disorder, unspecified; Z79.82 Long term (current) use of aspirin; Z79.890 Hormone replacement therapy; Z79.84 Long term (current) use of oral hypoglycemic drugs; W01.0XXA Fall on same level from slipping, tripping and stumbling without subsequent striking against object, initial encounter

== ENCOUNTER → 2020-05-05 | Outpatient (CLI) | payer MEDICARE, MEDICAID | LOC: COL.LAB 01:30 | DX: Z20.828 Contact with and (suspected) exposure to other viral communicable diseases (principal) ==

== ENCOUNTER 2020-05-10 17:10 | Emergency (ER) | payer MEDICARE, MEDICAID ==
[~2020-05-10] VITALS: Ht 167.6 cm; Wt 148.6 kg
[2020-05-10 17:28] VITALS: BP 119/68; TEMP 99.6
[2020-05-10 18:07] LABS: COLLECTION METHOD CLEAN CATCH
[2020-05-10 18:15] LABS: PH 6 (5-8); URINE APPEARANCE Clear; URINE BACTERIA Rare /hpf; URINE BILIRUBIN Negative (NEGATIVE); URINE BLOOD 3+ (NEGATIVE); URINE COLOR Yellow; URINE GLUCOSE Negative (NEGATIVE); URINE KETONE Negative (NEGATIVE); URINE LEUKOCYTE ESTERASE Negative (NEGATIVE); URINE NITRATE Negative (NEGATIVE); URINE PROTEIN(semi-quant) Negative (NEGATIVE); URINE UROBILINOGEN Negative (NEGATIVE)
[2020-05-10 18:31] LABS: BASO # 0.1 (0.0-0.2); BASO % 0.7 % (0.0-2.0); EOS # 0.4 (0.0-0.7); GRAN # 8.6 (1.4-6.5); GRAN % 62.1 % (42.2-75.2); HEMOGLOBIN 17.2 g/dl (12.5-16.0); LYMPH # 3.7 (1.2-3.4); LYMPH % 26.7 % (20.0-51.0); MEAN CELL VOLUME 92 fl (80.0-100.0); MEAN CORPUSCULAR HEMOGLOBIN 30 pg (27.0-31.0); MEAN CORPUSCULAR HGB CONC 33 g/dl (33.0-37.0); MEAN PLATELET VOLUME 10.2 fl (7.4-10.4); MONO # 0.9 (0.1-0.6); MONO % 6.3 % (1.7-9.3); PLATELET COUNT 272 K/mm3 (130-400); RED BLOOD COUNT 5.73 M/mm3 (4.10-5.30); REDCELL DISTRIBUTION WIDTH-CV 14.9 % (11.5-14.5)
[2020-05-10 18:35] LABS: HEMATOCRIT 52.8 % (37.0-47.0)
[2020-05-10 18:43] LABS: ALANINE AMINOTRANSFERASE 22 U/L (4-34); ALBUMIN 4.6 gm/dL (3.5-5.0); ALKALINE PHOSPHATASE 134 U/L (50-136); ANION GAP 11 mmol/L (7-16); AST,SGOT 28 U/L (15-37); BILIRUBIN,TOTAL 0.3 mg/dL (0.0-1.0); BLOOD UREA NITROGEN 4 mg/dL (7-17); CALCIUM 9.5 mg/dL (8.4-10.2); CARBON DIOXIDE 24 mmol/L (22-30); CHLORIDE 103 mmol/L (98-107); CREATININE, serum 0.85 (0.52-1.25); GLUCOSE 134 mg/dL (74-106); POTASSIUM 3.7 mmol/L (3.4-5.0); SODIUM 138 mmol/L (137-145)
[2020-05-10 18:45] LABS: ACETAMINOPHEN < 10 ug/mL (10-30); ALCOHOL(ethanol),MEDICAL < 10 mg/dL; SALICYLATE < 1.0 mg/dL
[2020-05-10 18:49] LABS: TRICYCLIC ANTIDEPRESS URINE NEGATIVE
[2020-05-10 19:52] VITALS: PULSE 94
== END 2020-05-10 19:52 | disposition home or self-care (01) ==
LOC: COL.ER 17:10
PROVIDERS: Physician Assistant
DX: J06.9 Acute upper respiratory infection, unspecified (principal); F32.9 Major depressive disorder, single episode, unspecified; R45.851 Suicidal ideations; I10 Essential (primary) hypertension; E11.9 Type 2 diabetes mellitus without complications; E03.9 Hypothyroidism, unspecified; K21.9 Gastro-esophageal reflux disease without esophagitis; F43.10 Post-traumatic stress disorder, unspecified; F17.200 Nicotine dependence, unspecified, uncomplicated; Z32.02 Encounter for pregnancy test, result negative; Z20.828 Contact with and (suspected) exposure to other viral communicable diseases; Z88.8 Allergy status to other drugs, medicaments and biological substances; Z79.82 Long term (current) use of aspirin; Z79.84 Long term (current) use of oral hypoglycemic drugs

== ENCOUNTER 2021-11-18 03:36 | Emergency (ER) | payer MEDICARE, MEDICAID ==
[~2021-11-18] VITALS: Ht 167.6 cm; Wt 140.9 kg
[2021-11-18 05:17] LABS: ALBUMIN 3.4 gm/dL (3.5-5.0); CALCIUM 9.5 mg/dL (8.4-10.2); CREATININE, serum 0.98 mg/dL (0.57-1.11); PHOSPHOROUS 2.5 mg/dL (2.3-4.7); POTASSIUM 3.4 mmol/L (3.5-4.5)
[2021-11-18 05:39] LABS: TSH w REFLEX 33.732 uIU/mL (0.350-4.940)
[2021-11-18 07:32] VITALS: BP 131/82; PULSE 85; TEMP 98.4
== END 2021-11-18 07:48 | disposition home or self-care (01) ==
LOC: COL.ER 03:36
PROVIDERS: Emergency Medicine
DX: E03.8 Other specified hypothyroidism (principal); Z28.310 Unvaccinated for COVID-19

== ENCOUNTER 2022-08-10 21:56 | Emergency (ER) | payer MEDICARE, MEDICAID ==
[~2022-08-10] VITALS: Ht 167.6 cm; Wt 136.4 kg
[2022-08-10 22:28] LABS: COLLECTION METHOD CLEAN CATCH
[2022-08-10 22:36] LABS: MUCOUS Present (NOT PRESENT); URINE BACTERIA Rare /hpf (NONE SEEN); URINE RBC 0-2 /hpf (0-2)
[2022-08-10] MEDS ORDERED: PLAVIX 75MG TAB75 MG PO (22:36)
[2022-08-10 22:38] LABS: PH 5.5 (5.0-8.5); URINE APPEARANCE Clear (CLEAR/HAZY); URINE BLOOD Negative (NEGATIVE); URINE COLOR Yellow (YELLOW); URINE GLUCOSE TRACE (NEGATIVE); URINE KETONE Negative (NEGATIVE); URINE NITRATE Negative (NEGATIVE); URINE PROTEIN(semi-quant) Negative (NEGATIVE); URINE UROBILINOGEN 0.2 E.U/dL (0.2-1.0)
[2022-08-10] MEDS ORDERED: RESTORIL30 MG (22:38)
[2022-08-10] MEDS ORDERED: ELAVIL100 MG PO (22:38)
[2022-08-10] MEDS ORDERED: TOPROL XL 25MG25 MG (22:39)
[2022-08-10] MEDS ORDERED: WELLBUTRIN XL150 MG (22:39)
[2022-08-10] MEDS ORDERED: ESKALITH C450 MG/TAB (22:41)
[2022-08-10 22:42] LABS: TRICYCLIC ANTIDEPRESS URINE POSITIVE
[2022-08-10] MEDS ORDERED: VALTREX 50500 MG/TAB PO (22:42)
[2022-08-10] MEDS ORDERED: CYMBALTA 60MG60 MG PO (22:43)
[2022-08-10] MEDS ORDERED: DESYREL 100MG100 MG PO (22:43)
[2022-08-10] MEDS ORDERED: PRIL40 PO (22:45)
[2022-08-10 22:48] LABS: BASO # 0.1 K/mm3 (0.0-0.2); BASO % 0.6 % (0.0-2.0); EOS # 0.3 K/mm3 (0.0-0.7); EOS % 3.2 % (0.0-4.0); GRAN % 61.3 % (42.2-75.2); HEMATOCRIT 41.1 % (37.0-47.0); HEMOGLOBIN 13.1 g/dl (12.5-16.0); LYMPH # 2.8 K/mm3 (1.2-3.4); LYMPH % 28.7 % (20.0-51.0); MEAN CELL VOLUME 94 fl (80.0-100.0); MEAN CORPUSCULAR HEMOGLOBIN 30 pg (27-31); MEAN CORPUSCULAR HGB CONC 32 g/dl (33.0-37.0); MEAN PLATELET VOLUME 10.5 fl (7.4-10.4); MONO # 0.5 K/mm3 (0.1-0.6); MONO % 5.4 % (1.7-9.3); PLATELET COUNT 248 K/mm3 (130-400); RED BLOOD COUNT 4.39 M/mm3 (4.10-5.30); REDCELL DISTRIBUTION WIDTH-CV 14.6 % (11.5-14.5)
[2022-08-10 23:01] LABS: ALANINE AMINOTRANSFERASE 29 U/L (0-55); ALBUMIN 3.4 gm/dL (3.5-5.0); ALKALINE PHOSPHATASE 112 U/L (40-150); ANION GAP 11 mmol/L (7-16); AST,SGOT 27 U/L (5-34); BILIRUBIN,TOTAL 0.3 mg/dL (0.2-1.2); BLOOD UREA NITROGEN 10 mg/dL (7-19); CALCIUM 10.1 mg/dL (8.4-10.2); CARBON DIOXIDE 25 mmol/L (22-29); CHLORIDE 103 mmol/L (98-107); CREATININE, serum 0.83 mg/dL (0.57-1.11); GLUCOSE 174 mg/dL (70-99); POTASSIUM 3.7 mmol/L (3.5-4.5); SODIUM 139 mmol/L (136-145); TOTAL PROTEIN 7.7 gm/dL (6.2-8.1)
[2022-08-10 23:02] LABS: ACETAMINOPHEN < 1.0 ug/mL (10-30); ALCOHOL(ethanol),MEDICAL < 10 mg/dL (0-10); SALICYLATE < 5.0 mg/dL (15.0-30.0)
[2022-08-11 05:00] VITALS: TEMP 97.9
[2022-08-11 08:30] VITALS: BP 174/80; PULSE 70
== END 2022-08-11 08:30 ==
LOC: COL.ER 21:56
PROVIDERS: Nurse Practitioner
DX: R45.851 Suicidal ideations (principal); F17.200 Nicotine dependence, unspecified, uncomplicated; Z20.822 Contact with and (suspected) exposure to COVID-19; Z28.310 Unvaccinated for COVID-19

== ENCOUNTER 2022-09-16 09:12 | Emergency (ER) | payer MEDICARE, MEDICAID ==
[~2022-09-16] VITALS: Ht 167.6 cm; Wt 136.4 kg
[~2022-09-16 09:12] MED LIST changes: +ELAVIL100 MG PO; +ESKALITH C450 MG/TAB; +PLAVIX 75MG TAB75 MG PO; +TOPROL XL 25MG25 MG; +WELLBUTRIN XL150 MG
[2022-09-16 09:21] VITALS: TEMP 98.1
[2022-09-16 09:38] LABS: BASO # 0.1 K/mm3 (0.0-0.2); BASO % 0.7 % (0.0-2.0); EOS # 0.2 K/mm3 (0.0-0.7); EOS % 2.7 % (0.0-4.0); GRAN # 5.8 K/mm3 (1.4-6.5); GRAN % 66.6 % (42.2-75.2); HEMATOCRIT 41.4 % (37.0-47.0); HEMOGLOBIN 13.3 g/dl (12.5-16.0); LYMPH # 2.1 K/mm3 (1.2-3.4); LYMPH % 23.8 % (20.0-51.0); MEAN CELL VOLUME 94 fl (80.0-100.0); MEAN CORPUSCULAR HEMOGLOBIN 30 pg (27-31); MEAN CORPUSCULAR HGB CONC 32 g/dl (33.0-37.0); MEAN PLATELET VOLUME 10.5 fl (7.4-10.4); MONO # 0.5 K/mm3 (0.1-0.6); MONO % 5.4 % (1.7-9.3); PLATELET COUNT 208 K/mm3 (130-400); RED BLOOD COUNT 4.39 M/mm3 (4.10-5.30); REDCELL DISTRIBUTION WIDTH-CV 14.2 % (11.5-14.5)
[2022-09-16 09:52] LABS: ACETONE,SERUM NEGATIVE
[2022-09-16 09:54] LABS: ALANINE AMINOTRANSFERASE 46 U/L (0-55); ALBUMIN 3.1 gm/dL (3.5-5.0); ALKALINE PHOSPHATASE 115 U/L (40-150); ANION GAP 10 mmol/L (7-16); AST,SGOT 38 U/L (5-34); BILIRUBIN,TOTAL 0.2 mg/dL (0.2-1.2); BLOOD UREA NITROGEN 6 mg/dL (7-19); CALCIUM 9.4 mg/dL (8.4-10.2); CARBON DIOXIDE 23 mmol/L (22-29); CHLORIDE 104 mmol/L (98-107); CREATININE, serum 0.86 mg/dL (0.57-1.11); GLUCOSE 326 mg/dL (70-99); POTASSIUM 3.8 mmol/L (3.5-4.5); SODIUM 137 mmol/L (136-145); TOTAL PROTEIN 6.9 gm/dL (6.2-8.1)
[2022-09-16 10:14] LABS: COLLECTION METHOD CLEAN CATCH
[2022-09-16 10:20] LABS: URINE BACTERIA Rare /hpf (NONE SEEN); URINE RBC None Seen /hpf (0-2)
[2022-09-16 10:33] LABS: PH 6.5 (5.0-8.5); URINE APPEARANCE Clear (CLEAR/HAZY); URINE BLOOD Negative (NEGATIVE); URINE COLOR Yellow (YELLOW); URINE GLUCOSE 2+ (NEGATIVE); URINE KETONE Negative (NEGATIVE); URINE NITRATE Negative (NEGATIVE); URINE PROTEIN(semi-quant) Negative (NEGATIVE); URINE UROBILINOGEN 0.2 E.U/dL (0.2-1.0)
[2022-09-16 11:24] VITALS: BP 138/93; PULSE 79
== END 2022-09-16 11:24 | disposition home or self-care (01) ==
LOC: COL.ER 09:12
PROVIDERS: Emergency Medicine
DX: E11.65 Type 2 diabetes mellitus with hyperglycemia (principal); Z79.84 Long term (current) use of oral hypoglycemic drugs; Z28.310 Unvaccinated for COVID-19
CPT/HCPCS: J1815

== ENCOUNTER 2022-09-19 08:23 | Emergency (ER) | payer MEDICARE, MEDICAID ==
[~2022-09-19] VITALS: Ht 167.6 cm; Wt 136.4 kg
[2022-09-19 08:29] VITALS: TEMP 98.3
[2022-09-19 08:50] LABS: BASO # 0.1 K/mm3 (0.0-0.2); BASO % 0.7 % (0.0-2.0); EOS # 0.3 K/mm3 (0.0-0.7); EOS % 2.6 % (0.0-4.0); GRAN % 69.2 % (42.2-75.2); HEMATOCRIT 41.3 % (37.0-47.0); HEMOGLOBIN 13.6 g/dl (12.5-16.0); LYMPH # 2.2 K/mm3 (1.2-3.4); LYMPH % 21.6 % (20.0-51.0); MEAN CELL VOLUME 94 fl (80.0-100.0); MEAN CORPUSCULAR HEMOGLOBIN 31 pg (27-31); MEAN CORPUSCULAR HGB CONC 33 g/dl (33.0-37.0); MEAN PLATELET VOLUME 10.3 fl (7.4-10.4); MONO # 0.5 K/mm3 (0.1-0.6); MONO % 4.8 % (1.7-9.3); PLATELET COUNT 239 K/mm3 (130-400); REDCELL DISTRIBUTION WIDTH-CV 14.6 % (11.5-14.5)
[2022-09-19 09:10] LABS: COLLECTION METHOD CLEAN CATCH
[2022-09-19 09:12] LABS: ALBUMIN 3.3 gm/dL (3.5-5.0); BILIRUBIN,TOTAL 0.3 mg/dL (0.2-1.2); CALCIUM 9.3 mg/dL (8.4-10.2); CREATININE, serum 0.85 mg/dL (0.57-1.11); POTASSIUM 3.6 mmol/L (3.5-4.5); TOTAL PROTEIN 7.5 gm/dL (6.2-8.1)
[2022-09-19 09:15] LABS: MUCOUS Present (NOT PRESENT); URINE BACTERIA None Seen /hpf (NONE SEEN); URINE RBC 0-2 /hpf (0-2)
[2022-09-19 09:18] LABS: URINE APPEARANCE Clear (CLEAR/HAZY); URINE BLOOD Negative (NEGATIVE); URINE COLOR Yellow (YELLOW); URINE GLUCOSE 2+ (NEGATIVE); URINE KETONE Negative (NEGATIVE); URINE NITRATE Negative (NEGATIVE); URINE PROTEIN(semi-quant) 1+ (NEGATIVE); URINE UROBILINOGEN 0.2 E.U/dL (0.2-1.0)
[2022-09-19 10:12] VITALS: BP 111/75; PULSE 87
== END 2022-09-19 10:22 | disposition home or self-care (01) ==
LOC: COL.ER 08:23
PROVIDERS: Emergency Medicine
DX: E11.65 Type 2 diabetes mellitus with hyperglycemia (principal); R60.0 Localized edema; F17.200 Nicotine dependence, unspecified, uncomplicated; Z79.84 Long term (current) use of oral hypoglycemic drugs; Z28.310 Unvaccinated for COVID-19

== ENCOUNTER → 2023-07-18 | Outpatient (CLI) | payer MEDICARE, MEDICAID ==
[~2023-07-18] MED LIST changes: +DRAMAMINE LESS25 MG PO
[2023-07-18 13:12] LABS: BASO # 0.1 K/mm3 (0.0-0.2); BASO % 0.7 % (0.0-2.0); EOS # 0.4 K/mm3 (0.0-0.7); EOS % 3.4 % (0.0-4.0); GRAN # 6.3 K/mm3 (1.4-6.5); GRAN % 61.2 % (42.2-75.2); HEMATOCRIT 46.1 % (37.0-47.0); HEMOGLOBIN 15.1 g/dl (12.5-16.0); LYMPH # 3.1 K/mm3 (1.2-3.4); MEAN CELL VOLUME 91 fl (80.0-100.0); MEAN CORPUSCULAR HEMOGLOBIN 30 pg (27-31); MEAN CORPUSCULAR HGB CONC 33 g/dl (33.0-37.0); MEAN PLATELET VOLUME 10.6 fl (7.4-10.4); MONO # 0.5 K/mm3 (0.1-0.6); MONO % 4.4 % (1.7-9.3); PLATELET COUNT 274 K/mm3 (130-400); RED BLOOD COUNT 5.08 M/mm3 (4.10-5.30); REDCELL DISTRIBUTION WIDTH-CV 13.8 % (11.5-14.5)
[2023-07-18 13:20] LABS: CHOLESTEROL RISK RATIO 2.2
[2023-07-18 13:40] LABS: THYROID STIMULATING HORMONE 0.023 uIU/mL (0.350-4.940)
== END ==
LOC: COL.LAB 11:50
PROVIDERS: Nurse Practitioner Psychiatric/Mental Health
DX: Z79.899 Other long term (current) drug therapy (principal)

== ENCOUNTER 2023-09-04 00:18 | Emergency (ER) | payer MEDICARE, MEDICAID ==
[~2023-09-04] VITALS: Ht 172.7 cm; Wt 120.9 kg
[~2023-09-04 00:18] MED LIST changes: +NORVASC 5MG5 MG/TAB PO
[2023-09-04 01:05] LABS: BASO # 0.1 K/mm3 (0.0-0.2); EOS # 0.4 K/mm3 (0.0-0.7); EOS % 3.1 % (0.0-4.0); GRAN % 52.3 % (42.2-75.2); HEMATOCRIT 51.4 % (37.0-47.0); HEMOGLOBIN 17.1 g/dl (12.5-16.0); LYMPH # 4.5 K/mm3 (1.2-3.4); LYMPH % 38.9 % (20.0-51.0); MEAN CELL VOLUME 91 fl (80.0-100.0); MEAN CORPUSCULAR HEMOGLOBIN 30 pg (27-31); MEAN CORPUSCULAR HGB CONC 33 g/dl (33.0-37.0); MEAN PLATELET VOLUME 11.1 fl (7.4-10.4); MONO # 0.5 K/mm3 (0.1-0.6); MONO % 4.5 % (1.7-9.3); PLATELET COUNT 270 K/mm3 (130-400); RED BLOOD COUNT 5.63 M/mm3 (4.10-5.30); REDCELL DISTRIBUTION WIDTH-CV 13.8 % (11.5-14.5)
[2023-09-04 01:22] LABS: ALANINE AMINOTRANSFERASE 20 U/L (0-55); ALBUMIN 3.7 gm/dL (3.5-5.0); ALKALINE PHOSPHATASE 112 U/L (40-150); ANION GAP 10 mmol/L (7-16); AST,SGOT 16 U/L (5-34); BILIRUBIN,TOTAL 0.3 mg/dL (0.2-1.2); BLOOD UREA NITROGEN 8 mg/dL (7-19); CALCIUM 9.8 mg/dL (8.4-10.2); CHLORIDE 108 mmol/L (98-107); CREATININE, serum 0.93 mg/dL (0.57-1.11); GLUCOSE 90 mg/dL (70-99); POTASSIUM 3.8 mmol/L (3.5-4.5); SODIUM 142 mmol/L (136-145); TOTAL PROTEIN 7.5 gm/dL (6.2-8.1)
[2023-09-04 01:28] LABS: ALCOHOL(ethanol),MEDICAL < 10 mg/dL (0-10); SALICYLATE < 5.0 mg/dL (15.0-30.0)
[2023-09-04 01:52] LABS: TRICYCLIC ANTIDEPRESS URINE POSITIVE (NEGATIVE)
[2023-09-04 02:16] VITALS: BP 143/91; PULSE 70; TEMP 97.4
== END 2023-09-04 02:35 | disposition home or self-care (01) ==
LOC: COL.ER 00:18
PROVIDERS: Nurse Practitioner
DX: R53.83 Other fatigue (principal); F17.290 Nicotine dependence, other tobacco product, uncomplicated

== ENCOUNTER 2024-02-09 17:39 | Emergency (ER) | payer MEDICARE, MEDICAID ==
[~2024-02-09] VITALS: Ht 170.2 cm; Wt 113.6 kg
[2024-02-09 17:43] VITALS: TEMP 97
[2024-02-09 18:51] LABS: BASO # 0.1 K/mm3 (0.0-0.2); BASO % 0.6 % (0.0-2.0); EOS # 0.4 K/mm3 (0.0-0.7); EOS % 3.1 % (0.0-4.0); GRAN # 6.4 K/mm3 (1.4-6.5); HEMATOCRIT 49.7 % (37.0-47.0); LYMPH % 34.6 % (20.0-51.0); MEAN CELL VOLUME 95 fl (80.0-100.0); MEAN CORPUSCULAR HEMOGLOBIN 31 pg (27-31); MEAN CORPUSCULAR HGB CONC 32 g/dl (33.0-37.0); MEAN PLATELET VOLUME 10.9 fl (7.4-10.4); MONO # 0.6 K/mm3 (0.1-0.6); MONO % 5.4 % (1.7-9.3); PLATELET COUNT 246 K/mm3 (130-400); RED BLOOD COUNT 5.25 M/mm3 (4.10-5.30); REDCELL DISTRIBUTION WIDTH-CV 12.9 % (11.5-14.5)
[2024-02-09 18:58] LABS: COLLECTION METHOD CLEAN CATCH
[2024-02-09 19:01] LABS: URINE APPEARANCE CLEAR (CLEAR/HAZY); URINE BLOOD NEGATIVE (NEGATIVE); URINE COLOR YELLOW (YELLOW); URINE GLUCOSE 3+ (NEGATIVE); URINE KETONE 1+ (NEGATIVE); URINE NITRATE NEGATIVE (NEGATIVE); URINE PROTEIN(semi-quant) NEGATIVE (NEGATIVE); URINE UROBILINOGEN 0.2 E.U/dL (0.2-1.0)
[2024-02-09 19:07] LABS: ALBUMIN 4.1 g/dL (3.5-5.0); BILIRUBIN,TOTAL 0.6 mg/dL (0.2-1.2); CALCIUM 10.3 mg/dL (8.4-10.2); CREATININE, serum 0.95 mg/dL (0.57-1.11); POTASSIUM 3.9 mEq/L (3.5-4.5); TOTAL PROTEIN 8.2 g/dl (6.2-8.1)
[2024-02-09 19:11] LABS: TRICYCLIC ANTIDEPRESS URINE NEGATIVE (NEGATIVE)
[2024-02-09 20:22] VITALS: BP 111/73; PULSE 85
== END 2024-02-09 19:59 | disposition home or self-care (01) ==
LOC: COL.ER 17:39
PROVIDERS: Nurse Practitioner
DX: R53.1 Weakness (principal); F17.210 Nicotine dependence, cigarettes, uncomplicated